=== PATIENT | female | born 1940 | race Caucasian/White ===

== ENCOUNTER 2024-07-18 18:06 | Inpatient (IN) | payer MEDICARE, SELFPAY ==
[2024-07-18] VITALS (19 sets, daily range): BP systolic 93–132; BP diastolic 51–91
--- NOTE | 2024-07-18 10:49 | ED.GENMED ---
History of Present Illness
<Lindsey Bennett BATH STEWARD/STEWARDESS - Last Filed: 07/18/24 17:04>
General
Chief Complaint: Abdominal Symptoms
Source: patient
Exam Limitations: none
Time Seen by Provider: 07/18/24 10:48
Nursing documentation reviewed up to this point in time: agreed with
History of Present Illness
History of Present Illness:
84-year-old female with history of seizures,'s CVA, PUD, diverticulitis, partial thyroidectomy, left mastectomy, hernia repairs, presents for abdominal pain, nausea, vomiting since yesterday. Can hold nothing down. States pain is 910.
Past History
<Lindsey Bennett, BATH STEWARD/STEWARDESS - Last Filed: 07/18/24 17:04>
Past History
ED Past Medical History: Asthma, COPD, Other ('Stomach ulcer a long time ago.'), Other (Osteopenia, severe scoliosis) and Other (Diverticulitis)
ED Past Surgical History: Gynecological (DNC) and Other (Mastectomy, partial thyroidectomy, melanoma removals)
Social History
Tobacco: Non-smoker
Alcohol: None
Personal:
Living: with family (daughter and grandchildren)
Review of Systems
<Lindsey Bennett, BATH STEWARD/STEWARDESS - Last Filed: 07/18/24 17:04>
Review of Systems
Allergies reviewed?: Yes
All Other Systems: ROS reviewed and negative except as documented in HPI and ROS
Constitutional: Denies fever
Respiratory: Reports other (Chronic short of breath with COPD, nothing new)
Cardiac: Denies chest pain
ABD/GI: Reports abdominal pain, nausea, constipated and anorexia; Denies vomiting, bloody stools or black stools
: Denies dysuria, frequency or difficulty voiding
Musculoskeletal: Reports other (Significantly limited ROM due to scoliosis); Denies edema
Skin: Reports no symptoms
Neurological: Reports no symptoms
Phy Exam
<Lindsey V. Day, BATH STEWARD/STEWARDESS - Last Filed: 07/18/24 17:04>
Physical Exam
Physical Exam:
GENERAL: No acute distress. A&Ox3.
CONSTITUTIONAL: Afebrile.
EYES: clear, conjunctivae normal
ENMT: moist mucus membranes
RESPIRATORY: Regular respirations, nonlabored, lungs clear.
CARDIOVASCULAR: Regular rate and rhythm, no murmurs, no rubs.
GI: Soft, rotund, generally tender, high-pitched bowel sounds.
Rectal: No stool in rectal vault.
MUSCULOSKELETAL: Severe scoliosis with significantly limited mobility . No edema. Well perfused.
SKIN: Warm, dry, pink
PSYCH: Normal mood and affect. Well kept, interactive and appropriate
NEUROLOGIC: Awake, alert and oriented. No focal neurological deficits
Course
<Lindsey Bennett, BATH STEWARD/STEWARDESS - Last Filed: 07/18/24 17:04>
Orders/Labs/Results
Orders:
Orders
07/18/24 11:03
Ondansetron Injectable [Zofran] 4 mg IV NOW STA
07/18/24 11:04
0.9% Sodium Chloride 1000 ml [Nss] 1,000 ml IV BOLUS
Iohexol [Omnipaque] See Protocol PO NOW STA
07/18/24 11:05
CT Abd/pel W Iv And Oral Contr Urgent
Comment:
Reason For Exam: pain, n/v, hx diverticulitis
07/18/24 11:13
Morphine Sulfate 4 mg IV NOW STA
07/18/24 11:21
Complete Blood Count/With Diff Urgent
Comprehensive Metabolic Panel Urgent
Lipase Urgent
07/18/24 15:11
CT Head W/o Iv Contrast Stat
Comment:
Reason For Exam: sudden unresponsiveness.
07/18/24 15:43
Lactic Acid Urgent
07/18/24 15:47
Naloxone [Narcan] 0.4 mg IV NOW STA
Naloxone [Narcan] 2 mg .ROUTE .STK-MED ONE
07/18/24 15:48
Naloxone [Narcan] 0.4 mg .ROUTE .STK-MED ONE
07/18/24 15:49
Chest X-ray Portable [CR Chest Portable - 1 View] Stat
Comment:
Reason For Exam: unresponsive
Reason Study Needs to be Portable: Patient Unstable
07/18/24 16:16
GASTROINTESTINAL CONSULT Routine
Consulting Provider: Latesha Bender
Was physician already notified: Yes
Volcanology Professor Consult Routine
Consulting Provider: Nannette Kwon
Was physician already notified: Yes
SURGICAL CONSULT Routine
Consulting Provider: Tony Seth
Was physician already notified: Yes
07/18/24 16:26
Gastrointestinal Tubes As Directed
Type: Strum sump
To suction?: Yes
Type of suction: Low intermittent
To straight drainage/gravity?: Yes
Directions to clamp NG tube: for activity, <30min
Irrigate tube?: Yes
Irrigant: Tap Water
Frequency: Q4H
Amount in mls: 30
Irrigation Directions: Irrigate Q4H and PRN
Comment: 16fr [place] sump
07/18/24 16:46
Admit/Transfer Patient As Directed
Co-Sign Provider:
Level of Care: Inpatient admission
Assign to:: ICU
Physician / Group: Kieran/hospitalist
Diagnosis: internal hernia
Reason for Hospitalization: internal hernia
Expected length of stay greater than two midnights?: Yes
ELOS- Estimated Length of Stay in days: 3
I certify the patient meets the requirements for IP care: Yes
Code Status As Directed
Resuscitation Status: Do not resuscitate
Reached after discussion with pt or family/Healthcare POA: Yes
PRN Pain Medication Management As Directed
May give lesser potent ordered pain med per pt: Yes
preference::
Protocol:: Medication orders for pain may be administered in a
manner that supports deferring to patient preference
when the pt is:
- Requesting an ordered lesser potent pain medication.
Least to most potent pain medications are defined
as: acetaminophen < NSAID < tramadol < opioids
(morphine, oxycodone, hydromorphone).
- Requesting a lesser dose of the same medication IF
ORDERED.
- Requesting a less intrusive route of administration
if both routes are prescribed by the provider (PO <
IV).
07/18/24 16:47
DNR Bracelet Application ONCE
07/18/24 16:53
Type+Screen Stat
07/18/24 16:54
INR [Prothrombin Time] Stat
PTT Stat
Abnormal Lab Results
07/18/24 07/18/24
11:21 15:27
MCH 31.5 H pg
(27.0-31.0)
MCHC 32.3 L g/dL
(33.0-37.0)
Absolute Neuts (auto) 8.5 H 10^3/uL
(1.4-6.5)
Absolute Lymphs (auto) 0.2 L 10^3/uL
(1.2-3.4)
Neutrophils % 90.3 H %
(42.2-75.2)
Lymphocytes % 2.5 L %
(20.5-51.1)
Chloride 97 L mmol/L
(98-107)
Carbon Dioxide 31 H mmol/L
(22-30)
BUN 37 H mg/dl
(7-17)
Creatinine 1.3 H mg/dL
(0.6-1.0)
Glucose 148 H mg/dl
(70-99)
POC Glucose 150 H mg/dl
(70-99)
07/18/24 11:21
07/18/24 11:21
Vital Signs
Initial and Last Documented VS:
Initial Vital Signs
Temp Pulse Resp BP Pulse Ox
97.5 F 107 18 128/82 80
07/18/24 10:06 07/18/24 10:06 07/18/24 10:06 07/18/24 10:06 07/18/24 10:06
Last Documented Vital Signs
Temp Pulse Resp BP Pulse Ox
97.5 F 95 18 107/67 96
07/18/24 10:06 07/18/24 17:00 07/18/24 11:50 07/18/24 17:00 07/18/24 17:03
<Jeremy Arellano MD - Last Filed: 07/18/24 16:31>
Orders/Labs/Results
Orders:
Orders
07/18/24 11:03
Ondansetron Injectable [Zofran] 4 mg IV NOW STA
07/18/24 11:04
0.9% Sodium Chloride 1000 ml [Nss] 1,000 ml IV BOLUS
Iohexol [Omnipaque] See Protocol PO NOW STA
07/18/24 11:05
CT Abd/pel W Iv And Oral Contr Urgent
Comment:
Reason For Exam: pain, n/v, hx diverticulitis
07/18/24 11:13
Morphine Sulfate 4 mg IV NOW STA
07/18/24 11:21
Complete Blood Count/With Diff Urgent
Comprehensive Metabolic Panel Urgent
Lipase Urgent
07/18/24 15:11
CT Head W/o Iv Contrast Stat
Comment:
Reason For Exam: sudden unresponsiveness.
07/18/24 15:43
Lactic Acid Urgent
07/18/24 15:47
Naloxone [Narcan] 0.4 mg IV NOW STA
Naloxone [Narcan] 2 mg .ROUTE .STK-MED ONE
07/18/24 15:48
Naloxone [Narcan] 0.4 mg .ROUTE .STK-MED ONE
07/18/24 15:49
Chest X-ray Portable [CR Chest Portable - 1 View] Stat
Comment:
Reason For Exam: unresponsive
Reason Study Needs to be Portable: Patient Unstable
07/18/24 16:16
GASTROINTESTINAL CONSULT Routine
Consulting Provider: Latesha Bender
Was physician already notified: Yes
Volcanology Professor Consult Routine
Consulting Provider: Nannette Kwon
Was physician already notified: Yes
SURGICAL CONSULT Routine
Consulting Provider: Tony Seth
Was physician already notified: Yes
07/18/24 16:26
Gastrointestinal Tubes As Directed
Type: Strum sump
To suction?: Yes
Type of suction: Low intermittent
To straight drainage/gravity?: Yes
Directions to clamp NG tube: for activity, <30min
Irrigate tube?: Yes
Irrigant: Tap Water
Frequency: Q4H
Amount in mls: 30
Irrigation Directions: Irrigate Q4H and PRN
Comment: 16fr [place] sump
07/18/24 16:46
Admit/Transfer Patient As Directed
Co-Sign Provider:
Level of Care: Inpatient admission
Assign to:: ICU
Physician / Group: Kieran/hospitalist
Diagnosis: internal hernia
Reason for Hospitalization: internal hernia
Expected length of stay greater than two midnights?: Yes
ELOS- Estimated Length of Stay in days: 3
I certify the patient meets the requirements for IP care: Yes
Code Status As Directed
Resuscitation Status: Do not resuscitate
Reached after discussion with pt or family/Healthcare POA: Yes
PRN Pain Medication Management As Directed
May give lesser potent ordered pain med per pt: Yes
preference::
Protocol:: Medication orders for pain may be administered in a
manner that supports deferring to patient preference
when the pt is:
- Requesting an ordered lesser potent pain medication.
Least to most potent pain medications are defined
as: acetaminophen < NSAID < tramadol < opioids
(morphine, oxycodone, hydromorphone).
- Requesting a lesser dose of the same medication IF
ORDERED.
- Requesting a less intrusive route of administration
if both routes are prescribed by the provider (PO <
IV).
07/18/24 16:47
DNR Bracelet Application ONCE
07/18/24 16:53
Type+Screen Stat
07/18/24 16:54
INR [Prothrombin Time] Stat
PTT Stat
Abnormal Lab Results
07/18/24 07/18/24
11:21 15:27
MCH 31.5 H pg
(27.0-31.0)
MCHC 32.3 L g/dL
(33.0-37.0)
Absolute Neuts (auto) 8.5 H 10^3/uL
(1.4-6.5)
Absolute Lymphs (auto) 0.2 L 10^3/uL
(1.2-3.4)
Neutrophils % 90.3 H %
(42.2-75.2)
Lymphocytes % 2.5 L %
(20.5-51.1)
Chloride 97 L mmol/L
(98-107)
Carbon Dioxide 31 H mmol/L
(22-30)
BUN 37 H mg/dl
(7-17)
Creatinine 1.3 H mg/dL
(0.6-1.0)
Glucose 148 H mg/dl
(70-99)
POC Glucose 150 H mg/dl
(70-99)
07/18/24 11:21
07/18/24 11:21
Vital Signs
Initial and Last Documented VS:
Initial Vital Signs
Temp Pulse Resp BP Pulse Ox
97.5 F 107 18 128/82 80
07/18/24 10:06 07/18/24 10:06 07/18/24 10:06 07/18/24 10:06 07/18/24 10:06
Last Documented Vital Signs
Temp Pulse Resp BP Pulse Ox
97.5 F 95 18 107/67 96
07/18/24 10:06 07/18/24 17:00 07/18/24 11:50 07/18/24 17:00 07/18/24 17:03
<Lindsey Bennett BATH STEWARD/STEWARDESS - Last Filed: 07/18/24 17:04>
MDM/Problems Addressed
Differential Diagnosis Includes:
Diverticulitis, bowel obstruction
MDM/Problems Addressed:
84-year-old female with history of seizures,'s CVA, PUD, diverticulitis, partial thyroidectomy, left mastectomy, hernia repairs, presents for abdominal pain, nausea, vomiting since yesterday. Can hold nothing down. States pain is 9/10.
Afebrile, nauseous, appears moderately uncomfortable
Daughter and pt say she cannot tolerate Dilaudid but has had Morphine in the past with no adverse effect.
CBC unremarkable
CMP: Showing mild renal insufficiency, IV fluids are infusing. Otherwise unremarkable
3:10 p.m.
RN approached me to say pt has had a change in mental state, is unresponsive.
Daughter at bedside states she's been somnolent and attributed it to the Morphine.
Pt very weakly opens eyes to loud calling of name, not focusing on speaker, not following commands.
VSS. Pulse ox 97% on 4 L NC. pt using accessory muscles to breath, she was doing that on arrival and she and daughter state that is not unusual w her COPD.
Pt to CT scan: Radiology report read: IMPRESSION:
No acute intracranial abnormality noted considering the enhanced technique.
Moderate periventricular small vessel ischemic disease.
Moderate acute left sphenoid sinusitis.
3:40 p.m.
Pulse ox dropped to 78% placed on non rebreather and up to 96%
Dr. Arellano at bedside. Discussed intubation and daughter ok with this
Narcan 0.2 mg IV given
Portable CXR :
3:50 p.m.
More responsive after Narcan 0.4 mg IV
No need to intubate.
Pulse ox 99%, non rebreather changed to NC O2.
Hospitalist and General Surgeon notified of admission
Chronic conditions affecting care: COPD and Previous abdomnial surgery
<Lindsey Bennett BATH STEWARD/STEWARDESS - Last Filed: 07/18/24 17:04>
*Critical Care Note
Total Time (30-74mins, 75-104mins- exclusive of procedures): Not Applicable
ED Attending Note
<Lindsey Bennett NP - Last Filed: 07/18/24 17:04>
-
Portions of this chart may have been created with voice recognition software.� Occasional wrong word or��sound alike� substitutions may have occurred due to the inherent limitations of voice recognition software.
<Jeremy Arellano MD - Last Filed: 07/18/24 16:31>
ED Attending Note
Patient seen and examined by attending physician: Yes
I performed the substantive portion of visit, reviewed & personally made and approve the management plan that is documented in note by myself or JOSH.: Yes
ED Attending Note:
I have seen and evaluated the patient with a [id number] encounter. I have spoken to the [BATH STEWARD/STEWARDESS] and involved in the medical history, the physical exam, medical decision making.
Evaluation and management service: agree unless noted differently below.
Results interpretation: agree unless noted differently below.
84-year-old woman history of diverticulitis presented to the emergency department with abdominal pain nausea vomiting since yesterday. On arrival patient with diffuse abdominal pain but was awake and alert. 4 mg of morphine was given and patient
was taken to CT scan. Shortly after patient slowly had decrease in mentation and during my evaluation patient was unresponsive. She did become hypoxic as well requiring nasal cannula. 0.4 mg IV Narcan was given with good response and patient is
now awake and alert following intermittent commands. She did have both CT scan of her head and abdomen. CT scan of the head unremarkable. CT scan of the abdomen did show possible internal hernia, mesenteric edema and significant gastric
distention with left hemidiaphragm elevated. This could be causing the hypoxia as well and will likely need NGT. Will discuss with general surgery and admit patient to the hospitalist.
Discharge Plan
Departure
Patient Disposition: Admit
Date of Disposition: 07/18/24
Time of Disposition: 16:04
Presentation/result/management discussed w/ accepting MD/DO: Hospitalist
Condition: Serious
Discharge Problem:
Abdominal pain, Change in mental state
Prescriptions:
No Action
alprazolam [Xanax] 1 MG tablet
1 mg PO HS
clopidogrel [Plavix] 75 MG tablet
75 mg PO DAILY@1999
pantoprazole 40 MG tablet,delayed release (DR/EC)
40 mg PO DAILY
tiotropium bromide [Spiriva with HandiHaler] 18 MCG capsule, w/inhalation device
18 mcg inhalation R DAILY
solifenacin [Vesicare] 10 MG tablet
10 mg PO DAILY
montelukast 10 MG tablet
10 mg PO HSPRN PRN (Reason: ALLERGIES)
ascorbic acid (vitamin C) [Vitamin C] 500 MG tablet
1,000 mg PO DAILY
rosuvastatin 20 MG tablet
20 mg PO DAILY
glucosamine-chondroitin 1 EACH tablet
1 tab PO DAILY
docosahexaenoic acid-epa 1 CAP capsule
2 cap PO DAILY
multivitamin with folic acid [Tab-A-Apryl] 1 TABLET tablet
1 tab PO DAILY
azithromycin 250 mg Tablet
250 mg PO DAILY
levothyroxine [Synthroid] 125 mcg Tablet
125 mcg PO DAILY
duloxetine 60 mg Capsule,Delayed Release(Dr/Ec)
60 mg PO DAILY
umeclidinium-vilanterol [Anoro Ellipta] 62.5-25 mcg/actuation Blister With Device
1 inh INHALATION R DAILY
levetiracetam [Keppra] 500 mg Tablet
500 mg PO BID
Referrals:
Darrell Freeman MD [Family Provider, Family Practice]
Interventions
Interventions:
*Risk Screen - Suicide Last Done: 07/18/24 11:22
*General Assessment Last Done: 07/18/24 11:22
*Neglect/Abuse Screening Last Done: 07/18/24 11:22
*ED- Fall Risk Assessment Last Done: 07/18/24 11:22
*ED COVID-19 Vaccine History Last Done: 07/18/24 11:22
EU-[facility]pr[facility]-Ef[facility] Assessment Last Done: 07/18/24 11:31
Discharge Date and Time
Print Language: PERSIAN
[2024-07-18] MEDS: OMNIPAQUE 50 ML PO (11:21)
[2024-07-18] MEDS: ZOFRAN 4 MG IV (11:21)
[2024-07-18] MEDS: NSS 1000 IV ×2 (11:22→20:43)
[2024-07-18] MEDS: MORPHINE SULFATE 4 MG IV (11:26)
[2024-07-18 11:37] LABS: % Basophils 0.1 % (0-2); % Immature Granulocytes 0.3 % (0-0.5); % Lymphocytes 2.5 % (20.5-51.1); % Monocytes 6.8 % (1.7-9.3); % Neutrophils 90.3 % (42.2-75.2); Absolute Lymphocytes 0.2 10^3/uL (1.2-3.4); Absolute Monocytes 0.6 10^3/uL (0.1-0.6); Absolute Neutrophils 8.5 10^3/uL (1.4-6.5); Hematocrit 45.5 % (37.0-47.0); Hemoglobin 14.7 g/dL (12.0-16.0); Mean Corp Hgb Conc. 32.3 g/dL (33.0-37.0); Mean Corpuscular Hgb 31.5 pg (27.0-31.0); Mean Corpuscular Volume 97.4 fL (81.0-99.0); Nucleated Red Blood Cells % 0 %; Platelet Count 198 10^3/uL (130-400); Red Blood Cell Count 4.67 10^6/uL (4.20-5.40); Red Cell Dist. Width 12.8 % (11.5-14.5); White Blood Cell Count 9.4 10^3/uL (4.8-10.8)
[2024-07-18 11:53] LABS: ALT (SGPT) 22 U/L (0-35); AST (SGOT) 27 U/L (14-36); Alkaline Phosphatase 89 U/L (38-126); Blood Urea Nitrogen 37 mg/dl (7-17); Calcium 9.7 mg/dl (8.4-10.2); Carbon Dioxide 31 mmol/L (22-30); Chloride 97 mmol/L (98-107); Glucose 148 mg/dl (70-99); Lipase 32 U/L (23-300); Potassium 4.7 mmol/L (3.5-5.1); Sodium 141 mmol/L (135-145); Total Bilirubin 0.9 mg/dl (0.2-1.3); Total Protein 7.2 g/dl (6.3-8.2); eGFR 40.55
[2024-07-18 15:29] LABS: Glucose - Point of Care 150 mg/dl (70-99)
[2024-07-18] MEDS: NARCAN 0.4 MG IV (15:50)
--- NOTE | 2024-07-18 16:14 | HPS.HSE ---
Family Physician
-
Family Physician: Darrell Freeman
Chief Complaint
-
Abd pain
N/V
History of Present Illness
HPI: 84 yo F with PMH COPD (not on home O2, History of thyroid cancer, Seizure disorder, Hyperlipidemia, TIA; p/w abd pain, N/V.
She received morphine 4 mg in the ED, and was found to be unresponsive, with improved MS after Narcan.
Admit to ICU.
Medical History
Past Medical History
Past Medical History: Reports Other
Additional Past Medical History:
COPD (not on home O2),
History of thyroid cancer s/p thyroidectomy
Seizure disorder,
Hyperlipidemia,
TIA
breast cancer s/p mastectomy
Past Surgical History: Reports Other (thyroidectomy, mastectomy, leg vein surgery )
Social History
Tobacco: Non-smoker
Alcohol: None
Living: With Family (daughter )
Family History
Family History: Not pertinent
Allergies / Home Medications
Allergies reflects when Allergies were last updated in [employer].
Home Medications with original date entered in [employer]
Allergy/Medication List:
Medications on admission are unable to be verified or confirmed at this time.
Review of Systems
-
Abdomen/GI: Reports See HPI, Abdominal Pain, Nausea and Vomiting
Physical Exam
Vital Signs
Vital Signs
Temp Pulse Resp BP Pulse Ox
36.4 C 96 18 112/70 97
07/18/24 10:06 07/18/24 11:50 07/18/24 11:50 07/18/24 15:00 07/18/24 15:00
Physical Exam
General: Well Developed, Well Nourished and Respiratory Distress (mild)
HEENT: NormoCephalic, Moist mucous membranes, Atraumatic and Oxygen (4L NC)
Respiratory: Clear and Non Labored Respirations; No Accessory Resp Muscle Use
Cardiac: S1/S2 and Regular Rhythm; No Murmur or Rub
GI: Non Distended; No Normal Bowel Sounds (no bowel sound)
Rectal: Deferred by Provider
Musculoskeletal: No Clubbing, No Cyanosis and No Edema
Skin: No Rash
Neuro: Awake
Psych: Calm
Laboratory Results
-
07/18/24 11:21
07/18/24 11:21
Laboratory Results
Total Bilirubin 0.9 mg/dl (0.2-1.3) 07/18/24 11:21
AST 27 U/L (14-36) 07/18/24 11:21
ALT 22 U/L (0-35) 07/18/24 11:21
Alkaline Phosphatase 89 U/L (38-126) 07/18/24 11:21
Lipase 32 U/L (23-300) 07/18/24 11:21
Data Reviewed
-
CT Scan: Report Reviewed by me and Discussed with Family
Lab Data: Labs Reviewed by me
Impression/Plan
-
HPI: 84 yo F with PMH COPD (not on home O2), History of thyroid cancer s/p thyroidectomy, Seizure disorder, Hyperlipidemia, TIA; p/w abd pain, N/V.
She received morphine 4 mg in the ED, and was found to be unresponsive, with improved MS after Narcan.
Admit to ICU.
CT AP in ED noted:
New findings suggesting a possible internal hernia.
Edematous mesentery. Mild free fluid in the abdomen and pelvis likely reactive.
Distended stomach. New.
Severe diverticulosis. No diverticulitis.
Severe elevation of the left hemidiaphragm. New.
A/P:
# Abd pain due to internal hernia with twisting of the mesenteric vessels and stretching in the mid abdomen noted in CT
CT AP as above
judicious use of opiate with unresponsiveness in ED, daughter OK with low dose morphine 0.5 mg PRN
NPO with gentle IVF NSS
GS CS
GI CS
Admit to ICU with cloud infrastructure architect CS
# Acute toxic encephalopathy and acute hypoxic resp insufficiency likely due to opiate overdose
MS improved with Narcan, cont to monitor MS, baseline MS awake and conversant per daughter
placed on 4L NC, pt not on home O2, wean O2 as tolerated
Other medical problems:
# COPD not on home O2
# History of thyroid cancer s/p thyroidectomy
# Seizure disorder
# Hyperlipidemia
# TIA
# distant h/o breast cancer s/p mastectomy
DVT ppx: HSQ
Code: DNR DNI, confirmed with daughter in person
CC Mx for potentially life threatening internal hernia and opiate overdose
CC time 40 min
awaiting med recc
--- NOTE | 2024-07-18 16:27 | CON.GS ---
Addendum entered and electronically signed by Tony Seth MD 07/18/24 17:47:
I saw and examined the patient independently.
The Customs And Border Protection Inspector's note was reviewed and I agree with the note, assessment and plan except where noted below.
Comment: This is an 84-year-old female with medical history below, on Plavix who presents with abdominal pain found to have a swirl in the mesentery, on my review this is likely volvulized transverse colon. There does not appear to be immediate
evidence of ischemic bowel or upstream dilation. The small bowel appears normal. Her white count is normal. Her exam is somewhat unreliable now as she is still recovering from the administration of pain medication but she is very distended on
exam.
N.p.o., IV fluids
Please insert an NG tube in place to low intermittent wall suction. Please obtain plain film to confirm placement, and a repeat plain film in the morning to assess the distention of her colon.
Will follow with serial abdominal exams. I discussed with the daughter who is at bedside that she will almost certainly need an exploration at some point this admission.
Patient's family agreeable to plan of care above.
General surgery will follow, will discuss with colorectal surgery as well surgical options.
Original Note:
Consultation
-
Date/Time Consultation Requested: 07/18/24 1609
Date/Time Consultation Performed: 07/18/24 1615
Requesting Provider: Day
Performing Provider: Sofia Seth
Reason for Consultation: n/v/abd pain
Medical History
-
Chief Complaint: ABD pain
History of Present Illness:
Ms Terry is an 84 yo female with a h/o D&C, Seizures, TIA, COPD, and ?hernia surgery (daughter unsure) who presented with abdominal pain which began early yesterday morning with nausea and vomiting and has persisted. She is currently lethargic
after receiving morphine and subsequent narcan and is unable to provide history. She does follow simple commands and awakens to light stimulation. Her daughter is at bedside and providing history. Her daughter also notes, she was only able to pass
some small cameron of BM since yesterday but is not sure if her mother has been passing flatus. Her pain and discomfort increased today, causing them to present through the ED for evaluation. On exam, the abdomen is quite distended with generalized
tenderness.
Past Medical History
Past Medical History: Cancer (melanoma, thyroid, breast ), COPD, CVA (TIA), HTN, Hypercholesterolemia and Seizures
Past Surgical History: Gynecological (d&C with hysteroscopy), Hernia Repair (?hernia repair) and Other (Partial thyroidectomy, left mastectomy, sinus surgery, cataracts, vein stripping)
Social History
Tobacco: Non-Smoker
Personal:
Allergies / Home Medications
Allergy/AdvReac Type Severity Reaction Status Date / Time
clindamycin Allergy Unknown Hives Verified 07/18/24 10:06
bacitracin Allergy burning, Verified 07/18/24 10:06
itching
hydromorphone (From Dilaudid) Allergy Shortness Verified 07/18/24 10:06
of Breath,
shaking
polymyxin B Allergy burning, Verified 07/18/24 10:06
itching
�Medication �Instructions �Recorded �Confirmed �Type
alprazolam 1 mg tablet 1 - 3 mg PO PRN PRN anxiety 08/30/12 09/01/12 History
alprazolam 1 mg tablet 2 mg PO HS 08/30/12 09/01/12 History
azelastine 137 mcg (0.1 %) nasal 2 sprays intranasal HS 08/30/12 09/01/12 History
spray (Astepro)
clopidogrel 75 mg tablet (Plavix) 75 mg PO DAILY@199908/30/12 09/01/12 History
pantoprazole 40 mg tablet,delayed 40 mg PO DAILY 08/30/12 09/01/12 History
release
solifenacin 10 mg tablet (Vesicare) 10 mg PO DAILY 08/30/12 09/01/12 History
tiotropium bromide 18 mcg capsule 18 mcg inhalation DAILY 08/30/12 09/01/12 History
with inhalation device (Spiriva
with HandiHaler)
montelukast 10 mg tablet 10 mg PO HS 08/31/12 09/01/12 History
Ciclesonide [Omnaris Nasal [place]] 2 sprays intranasal DAILY 09/01/12 09/01/12 History
ascorbic acid (vitamin C) 500 mg 1,000 mg PO DAILY 09/01/12 09/01/12 History
tablet (Vitamin C)
calcium 500 mg (as 1 tab PO DAILY 09/01/12 09/01/12 History
carbonate)-vitamin D3 5 mcg (200
unit) tablet (Oyster Shell
Calcium-Vitamin D3)
docosahexaenoic acid (dha)-epa 120 2 cap PO DAILY 09/01/12 09/01/12 History
mg-180 mg capsule
fluticasone propionate 230 2 puff inhalation BID 09/01/12 09/01/12 History
mcg-salmeterol 21 mcg/actuation
HFA inhaler (Advair HFA)
glucosamine-chondroitin 750 mg-600 1 tab PO DAILY 09/01/12 09/01/12 History
mg tablet
guaifenesin 600 mg tablet, 1,200 mg PO BID 09/01/12 09/01/12 History
extended release 12 hr (Mucus
Relief ER)
ipratropium 0.5 mg-albuterol 3 mg 3 ml inhalation Q6HPRN PRN SOB 09/01/12 09/01/12 History
(2.5 mg base)/3 mL nebulization
soln
ipratropium 18 mcg-albuterol 103 2 puff inhalation Q6HPRN PRN SOB 09/01/12 09/01/12 History
mcg/actuation aerosol inhaler
(Combivent)
levothyroxine 175 mcg tablet 175 mcg PO DAILY 09/01/12 09/01/12 History
multivitamin with folic acid 400 1 tab PO DAILY 09/01/12 09/01/12 History
mcg tablet (Tab-A-Apryl)
phenytoin sodium extended 100 mg 130 mg PO BID 09/01/12 09/01/12 History
capsule
phenytoin sodium extended 30 mg 30 mg PO Q48H 09/01/12 09/01/12 History
capsule (Dilantin)
rosuvastatin 20 mg tablet 20 mg PO DAILY 09/01/12 09/01/12 History
vitamin B complex (Vitamin B-100 100 mg PO DAILY 09/01/12 09/01/12 History
Complex tablet)
ondansetron 4 mg disintegrating 4 mg PO TIDPRN PRN nausea/vomiting 08/22/16 Rx
tablet #9 tabs
Review of Systems
-
Unable to obtain full review of systems at this time due to: Acuity
History Source: Patient and Family
All other systems: Unreviewed (pt unable to provide ROS)
A 10 point review of systems was completed, and was negative except as per HPI.
Physical Exam
Vital Signs
Temp Pulse Resp BP Pulse Ox
97.5 F 96 18 112/70 97
07/18/24 10:06 07/18/24 11:50 07/18/24 11:50 07/18/24 15:00 07/18/24 15:00
07/17/24 07/18/24 07/19/24
06:59 06:59 06:59
Actual Weight 42 kg
Lab Results
07/18/24 11:21
07/18/24 11:21
WBC 9.4 10^3/uL (4.8-10.8) 07/18/24 11:21
Hgb 14.7 g/dL (12.0-16.0) 07/18/24 11:21
Hct 45.5 % (37.0-47.0) 07/18/24 11:21
Plt Count 198 10^3/uL (130-400) 07/18/24 11:21
Abs Immat Gran (auto) 0.0 10^3/uL (0-0.05) 07/18/24 11:21
Neutrophils % 90.3 % (42.2-75.2) H 07/18/24 11:21
Physical Exam
General: Comfortable
HEENT: Normocephalic
Respiratory: Non Labored Respirations
GI: Soft, Tender (generalized) and Distended (mod to severe)
Skin: Warm and Dry
Neuro: Other (lethargic, currently nonverbal but following simple commands)
Psych: Calm
Data Reviewed
-
CT Scan: Image Personally Visualized and interpreted, Report Reviewed by me, Discussed with Physician, Discussed with Patient and Discussed with Family
Labs: Labs Reviewed by me, Discussed with Physician, Discussed with Patient and Discussed with Family
Old Records: Reviewed
Assessment / Plan
-
84 yo female with a h/o D&C, Seizures, TIA, COPD, and ?hernia surgery (daughter unsure and unable to visualize any abd scars) who presented with abdominal pain which began early yesterday morning with nausea and vomiting and has persisted with
associated distention. Altered mentation after narcotic administration limiting history/exam. CT imaging reviewed with significant gastric distention with swirling of the mesentery with what appears to be twisting of redundant transverse colon (best
seen on coronal image). No leukocytosis. Mild KATHERIN present likely secondary to hypovolemia/dehydration. AFVSS.
Plan:
--Being admitted to the hospitalist service for management
--Would place NGT for decompression and keep strict NPO
--Recommend changing essential PO meds to I V
--Analgesics/antiemetics prn,
Will review imaging with contact lens fitter general and colorectal surgeons, further surgical recommendations to follow
--- NOTE | 2024-07-18 17:02 | CON.GI ---
Addendum entered and electronically signed by Latesha Bender MD 07/18/24 17:45:
I saw and examined the patient.
The TELECOMMUNICATOR SUPERVISOR's note was reviewed and I agree with the note.
Comment: This is a 85-year-old female with past medical history as listed below who presented to the emergency room with acute onset of abdominal pain with nausea vomiting since last night but symptoms worsened today which prompted them to come to
the ER. Patient lives with her daughter who is currently by her bedside. in the ER she received morphine and had respiratory distress with desaturation and altered mental status CT head neg and subsequently received Narcan and her saturation
improved was initially placed on a nonrebreather now on NC. She does have chronic constipation and uses MiraLAX as needed and Metamucil. She had small pebble-like stool yesterday history was obtained from her daughter at the bedside.
Unfortunately her medication list was not available her daughter is going to try to obtain it. CT on admission showed mesenteric swirling with twisting of mesenteric vessels and marked gastric distention and also distended colon with elevated left
hemidiaphragm. Severe diverticulosis also noted. Her last colonoscopy was apparently 6 or 7 years ago at [facility] per daughter revealed diverticulosis.
Assessment and plan acute onset of nausea, vomiting and abdominal pain secondary to bowel obstruction with distended stomach and also noted to have a distended colon with mesenteric swirling and twisted mesenteric vessels most likely has large bowel
obstruction from redundant colon with chronic constipation. No prior history of bowel obstruction but has chronic constipation and usually resolves with MiraLAX and Metamucil per daughter. Discussed with surgery who has already seen the patient
and NG tube to be placed and timing of OR per surgery. Continue PPI, NPO, IVF. GI will be available as needed.
Original Note:
Consultation
-
Date/Time Consultation Requested: 07/18/24 1600
Date/Time Consultation Performed: 07/18/24 1600
Requesting Provider: Dr. Alcaraz
Performing Provider: Dr. Ortega/NOY Villafuerte
Reason for Consultation: abd pain
Medical History
Chief Complaint / HPI
Chief Complaint: N/V/abd pain
History of Present Illness:
84-year-old female with past medical history of breast cancer, thyroid cancer, seizure disorder, hyperlipidemia, TIA, COPD not on oxygen, remote history of peptic ulcer disease, scoliosis, chronic constipation presents to the emergency room with
acute onset of nausea, vomiting and abdominal pain. Asked to evaluate for the same. The patient unfortunately was given pain medication and cannot provide any history. History obtained from daughter who is at bedside. Daughter states that the
patient was feeling fine up until yesterday. She ate spaghetti and shrimp without any difficulty. She states that yesterday morning developed with a vague abdominal discomfort, associated with small amounts of vomitus. She also had persistent
nausea. They gave her Zofran which relieved this somewhat. She was also passing small amount of 'pebble-like stool'. She had continued ongoing abdominal pain which brought him to the emergency room for further evaluation. The patient did receive
4 mg of morphine where she did have a change in mental status. She did have a CT of head that showed no acute intracranial abnormality. She did drop her pulse ox down to 78% and she was placed on a nonrebreather. She was given Narcan with
improvement of mentation. She is still somnolent. She had a CT of the abdomen and pelvis with oral and IV contrast that shows a possible internal hernia. Edematous mesentery. Mild free fluid in the abdomen and pelvis. Distended stomach. Severe
diverticulosis. Severe elevation of the left hemidiaphragm. Surgery was consulted and seen patient at bedside. We are consulted as well for the same. The patient appears comfortable. She has some high-pitched bowel sounds. Abdomen is distended.
Past Medical History
Past Medical History: Other (Breast cancer, thyroid cancer, seizure disorder, hyperlipidemia, TIA, COPD, remote history of peptic ulcer disease, scoliosis, chronic constipation)
Past Surgical History: Other (Possible hernia repair)
Social History
Tobacco: Smoker
Alcohol: None
Drug: None
Living: With Family
Family History
Family History: Adopted
Allergies / Home Medications
Allergy/AdvReac Type Severity Reaction Status Date / Time
clindamycin Allergy Unknown Hives Verified 07/18/24 10:06
bacitracin Allergy burning, Verified 07/18/24 10:06
itching
hydromorphone (From Dilaudid) Allergy Shortness Verified 07/18/24 10:06
of Breath,
shaking
polymyxin B Allergy burning, Verified 07/18/24 10:06
itching
�Medication �Instructions �Recorded
alprazolam 1 mg tablet (Xanax) 1 mg PO HS 08/30/12
clopidogrel 75 mg tablet (Plavix) 75 mg PO DAILY@199908/30/12
pantoprazole 40 mg tablet,delayed 40 mg PO DAILY 08/30/12
release
solifenacin 10 mg tablet (Vesicare) 10 mg PO DAILY 08/30/12
tiotropium bromide 18 mcg capsule 18 mcg inhalation R DAILY 08/30/12
with inhalation device (Spiriva
with HandiHaler)
montelukast 10 mg tablet 10 mg PO HSPRN PRN ALLERGIES 08/31/12
ascorbic acid (vitamin C) 500 mg 1,000 mg PO DAILY 09/01/12
tablet (Vitamin C)
docosahexaenoic acid (dha)-epa 120 2 cap PO DAILY 09/01/12
mg-180 mg capsule
glucosamine-chondroitin 750 mg-600 1 tab PO DAILY 09/01/12
mg tablet
multivitamin with folic acid 400 1 tab PO DAILY 09/01/12
mcg tablet (Tab-A-Apryl)
rosuvastatin 20 mg tablet 20 mg PO DAILY 09/01/12
azithromycin 250 mg tablet 250 mg PO DAILY RETIREMENT 07/18/24
duloxetine 60 mg capsule,delayed 60 mg PO DAILY 07/18/24
release
levetiracetam 500 mg tablet 500 mg PO BID 07/18/24
(Keppra)
levothyroxine 125 mcg tablet 125 mcg PO DAILY 07/18/24
(Synthroid)
umeclidinium 62.5 mcg-vilanterol 1 inh inhalation R DAILY 07/18/24
25 mcg/actuation powdr for
inhalation (Anoro Ellipta)
Review of Systems
-
Unable to obtain full review of systems at this time due to: Other (Patient unable to give review of systems secondary to sedation, is awake)
Vital Signs
Temp Pulse Resp BP Pulse Ox
97.5 F 96 18 112/70 97
07/18/24 10:06 07/18/24 11:50 07/18/24 11:50 07/18/24 15:00 07/18/24 15:00
Physical Exam
Exam
General: No Apparent Distress
HEENT: Anicteric
Respiratory: Clear (Anterior)
Cardiac: Regular Rhythm
GI: Non Tender, Distended and Other (Few higher pitch bowel sound)
Skin: Warm and Dry
Neuro: Awake and Other (Somnolent)
Psych: Calm
Results
WBC 9.4 10^3/uL (4.8-10.8) 07/18/24 11:21
Hgb 14.7 g/dL (12.0-16.0) 07/18/24 11:21
Hct 45.5 % (37.0-47.0) 07/18/24 11:21
MCV 97.4 fL (81.0-99.0) 07/18/24 11:21
Plt Count 198 10^3/uL (130-400) 07/18/24 11:21
Absolute Neuts (auto) 8.5 10^3/uL (1.4-6.5) H 07/18/24 11:21
Sodium 141 mmol/L (135-145) 07/18/24 11:21
Potassium 4.7 mmol/L (3.5-5.1) 07/18/24 11:21
Chloride 97 mmol/L (98-107) L 07/18/24 11:21
Carbon Dioxide 31 mmol/L (22-30) H 07/18/24 11:21
BUN 37 mg/dl (7-17) H 07/18/24 11:21
Creatinine 1.3 mg/dL (0.6-1.0) H 07/18/24 11:21
Calcium 9.7 mg/dl (8.4-10.2) 07/18/24 11:21
Total Bilirubin 0.9 mg/dl (0.2-1.3) 07/18/24 11:21
AST 27 U/L (14-36) 07/18/24 11:21
ALT 22 U/L (0-35) 07/18/24 11:21
Alkaline Phosphatase 89 U/L (38-126) 07/18/24 11:21
Lipase 32 U/L (23-300) 07/18/24 11:21
Diagnostic Image Results:
CT abdomen and pelvis with oral and IV contrast 07/18/2024:
IMPRESSION: New findings suggesting a possible internal hernia. Clinical correlation recommended.
Edematous mesentery. Mild free fluid in the abdomen and pelvis likely reactive.
Distended stomach. New.
Severe diverticulosis. No diverticulitis.
Severe elevation of the left hemidiaphragm. New.
CT head:
No acute intracranial abnormality noted considering the enhanced technique.
Moderate periventricular small vessel ischemic disease.
Moderate acute left sphenoid sinusitis.
Chest x-ray:
IMPRESSION:
Chronic severe left hemidiaphragm elevation, progressed from prior.
Mild right midlung atelectasis and/or pneumonia.
Prior GI Procedures:
EGD: Possibly at [facility]. Unavailable to us per daughter
Colonoscopy: Colonoscopy approximately 7 years ago at [facility]. Per daughter diverticulosis otherwise negative. Records unavailable to us
Assessment / Plan
-
84-year-old female with past medical history of breast cancer, thyroid cancer, seizure disorder, hyperlipidemia, TIA, COPD not on oxygen, remote history of peptic ulcer disease, scoliosis, chronic constipation presents to the emergency room with
acute onset of nausea, vomiting and abdominal pain. Asked to evaluate for the same. Patient with CT imaging of abdomen pelvis with oral and IV contrast showing twisting of the mesenteric vessels and stretching in the mid abdomen. Raising concern
for internal hernia. Edematous mesentery. Mild free fluid in the abdomen and pelvis likely reactive. With distended stomach. Severe elevation of the left hemidiaphragm. Patient has already been seen and evaluated by surgery. NG tube to be
placed.
Plan:
-NPO
-NGT
-As per Surgery for further Management, discussed with Surgery and with daughter at bedside.
-
-
Thank you for consultation and allowing me to participate in the patient's care. Please call the teacher education director GI physician during the after hours with any questions or concerns.
[2024-07-18 17:46] LABS: INR 0.99; PT 13.4 Sec (11.4-14.6)
[2024-07-18 17:50] LABS: Lactic Acid 1.3 mmol/L (0.7-2.0)
[2024-07-18] MEDS: HEPARIN 5000 UNITS SC (21:02)
[2024-07-18] MEDS: OFIRMEV 100 IV (21:12)
[2024-07-19] VITALS (30 sets, daily range): BP systolic 68–130; BP diastolic 41–65; BMI 19.5
--- NOTE | 2024-07-19 00:01 | PTCARENOTE ---
assumed care of pt from ED, drowsy and lethargic, slow speech, AOx3, pupils 2, c/o 710 abd pain refer to MAR, NSR on the monitor c PVCs, + pulses, lungs diminished and coarse, poor effort, SpO2 96% on 4L NC, BSx4 hypoactive, tender to touch, PW in
place pt due to void, LE mottled and cool to touch, bluish purple discoloration B/L toes, wounds per worklist, NS 80ml, IV Tylenol, 20G RAC, 20G RFA, call finch within reach, daughter updated before leaving, code status updated to limited DNR,
otherwise refer to documentation.
[2024-07-19 03:13] LABS: % Basophils 0.1 % (0-2); % Immature Granulocytes 0.6 % (0-0.5); % Lymphocytes 4.5 % (20.5-51.1); % Monocytes 9.6 % (1.7-9.3); % Neutrophils 85.2 % (42.2-75.2); Absolute Immature Granulocytes 0.1 10^3/uL (0-0.05); Absolute Lymphocytes 0.6 10^3/uL (1.2-3.4); Absolute Monocytes 1.2 10^3/uL (0.1-0.6); Absolute Neutrophils 10.9 10^3/uL (1.4-6.5); Hematocrit 43.4 % (37.0-47.0); Hemoglobin 13.6 g/dL (12.0-16.0); Mean Corp Hgb Conc. 31.3 g/dL (33.0-37.0); Mean Corpuscular Hgb 31.5 pg (27.0-31.0); Mean Corpuscular Volume 100.5 fL (81.0-99.0); Nucleated Red Blood Cells % 0 %; Platelet Count 173 10^3/uL (130-400); Red Blood Cell Count 4.32 10^6/uL (4.20-5.40); Red Cell Dist. Width 12.7 % (11.5-14.5); White Blood Cell Count 12.8 10^3/uL (4.8-10.8)
[2024-07-19] MEDS: DESENEX/MITRAZOL/ZEASORB 1 APPLIC TOPICAL ×2 (03:30→20:16)
[2024-07-19 03:52] LABS: ALT (SGPT) 19 U/L (0-35); AST (SGOT) 25 U/L (14-36); Albumin 4.2 g/dl (3.5-5.0); Alkaline Phosphatase 81 U/L (38-126); Blood Urea Nitrogen 38 mg/dl (7-17); Calcium 8.7 mg/dl (8.4-10.2); Carbon Dioxide 30 mmol/L (22-30); Estimated Creatinine Clearance 28 ml/min; Glucose 123 mg/dl (70-99); Magnesium 2.1 mg/dl (1.6-2.3); Potassium 4.7 mmol/L (3.5-5.1); Sodium 144 mmol/L (135-145); Total Bilirubin 0.7 mg/dl (0.2-1.3); eGFR 55.55
[2024-07-19 04:19] LABS: Chloride 103 mmol/L (98-107); Total Protein 6.3 g/dl (6.3-8.2)
--- NOTE | 2024-07-19 04:40 | PTCARENOTE ---
systems reviewed, bladder scanned 472, straight cath per order for 600, labs sent, mouth care, otherwise refer to worklist.
[2024-07-19] MEDS: OFIRMEV 100 IV (06:31)
--- NOTE | 2024-07-19 07:29 | W.PN.HOSP.TC ---
Addendum entered and electronically signed by Juani Salvador MD 07/19/24 17:07:
I saw and evaluated the patient independently. I reviewed the resident�s note and agree with findings and plan as documented by Dr. Michele.
GENERAL: chronically ill appearing female with O2 NC in place, severe scoliosis in no apparent distress
HEENT: NC/AT--O2 NC--NGT
HEART: regular rate and rhythm, +S1, +S2
LUNGS : clear to auscultation bilaterally
ABDOM: soft, nontender, nondistended, + bowel sounds
EXT: no cyanosis, clubbing, or edema
NEUROLOGIC: grossly intact
went to OR and now intubated
Abdominal pain due to internal hernia with cecal volvulus and twisting of internal vessels--apprec surgery--went to OR--Cecum within the LEFT chest causing obstruction and volvulus of the transverse colon, No ischemia or perforation, Extended RIGHT
hemicolectomy with primary stapled azmc-ld-mhdt anastomosis with KEESHA 100 blue load stapler, Anatomy confirmed, mesenteric defect closed--post op care, pain control
VDRF--intubated post op--apprec employee wellness/fitness coordinator help
hypotension--post op--does not appear septic by criteria--cont levophed and vasopressin added-- IVF support
Acute toxic metabolic encephalopathy from acute hypoxic respiratory failure (on O2 but does not wear it at home) due to UNINTENTIONAL opiate overdose (4mg IV morphine given by ED)in a pt with COPD--received narcan with improvement--now intubated
postop
Urinary retention- straight cath as needed--loaiza post op
Seizure disorder--cont Keppra IV
HLD--hold oral statin
Hx CVA
H/o breast cancer s/p mastectomy
DVT proph-- subq heparin
Code status--limited -- DNI--intubated post procedure
Original Note:
Today's Communication/Plan
-
- possible surgery
Assessment / Plan
Assessment / Plan
Assessment:
84yo F h COPD, seizures, CVA, PUD, diverticulitis, hx hernia repairs who presented to [facility] ED 07/18 for abdominal pain, N/V since the day before. Received 4mg morphine in ED, found to be unresponsive, improved after narcan. CT abd/pelvis c/w
internal hernia vs possible volvulized transverse colon.
Plan:
Abdominal pain due to internal hernia w twisting of mesenteric vessels on CT
- judicious use of opiates w unresponsiveness in ED
- NPO, IVF
- NG tube w wall suction
- appreciate surgery input
- appreciate GI input
Acute toxic metabolic encephalopathy w acute hypoxic resp insufficency likelly secondary to opiate overdose
COPD
- MS improved w narcan
- monitor MS
- wean O2 as able, not on home O2
Urinary retention
- straight cath as needed
- monitor
Sore throat
- lozenges
Seizure disorder
HLD
Hx CVA
H/o breast cancer s/p mastectomy
Diet: NPO
DVT ppx: subq heparin
Code status: limited -- DNI
Anticipated Discharge: > 48 hours
Subjective/Interval History
-
Date of Service: July 19, 2024
Pt is an 84yo F h seizures, CVA, PUD, diverticulitis, hx hernia repairs who presented to [facility] ED 07/18 for abdominal pain, N/V since the day before. Received 4mg morphine in ED, found to be unresponsive, improved after narcan. CT abd/pelvis c/w
internal hernia vs possible volvulized transverse colon. Today pt has a sore throat. Straight cath this AM for 600mL.
Objective Data
-
Labs:
Laboratory Results
07/19/24
03:07
WBC 12.8 H
Hgb 13.6
Hct 43.4
Plt Count 173
Sodium 144
Potassium 4.7
Chloride 103
Carbon Dioxide 30
BUN 38 H
Creatinine 1.0
Glucose 123 H
Calcium 8.7
Total Bilirubin 0.7
AST 25
ALT 19
Alkaline Phosphatase 81
Vital Signs:
Vital Signs
Temp Pulse Resp BP Pulse Ox
97.5 F 94 34 93/57 99
07/19/24 03:39 07/19/24 06:00 07/19/24 06:00 07/19/24 06:00 07/19/24 04:22
I&O
07/18/24 07/19/24 07/20/24
06:59 06:59 06:59
Output Total 600 / 600
Balance -600 / -600
Review of Systems
-
History Source: Patient
Constitutional: Reports No Symptoms
EENT: Reports Other (sore throat)
Respiratory: Reports No Symptoms
Cardiac: Reports No Symptoms
Abdomen/GI: Reports Abdominal Pain
Neuro: Reports No Symptoms
Physical Exam
-
General: Appears Chronically Ill and Cachectic
HEENT: Normocephalic, Atraumatic, Oxygen (1L O2 via NC) and Other (NG tube)
Respiratory: Crackles and Decreased Breath Sounds
Cardiac: S1/S2, Irregular Rhythm and Tachycardic
Breast: N/A
GI: Soft, Nondistended, Tender and Other (hypoactive BS, hernia)
Musculoskeletal: No Clubbing, No Cyanosis and No Edema
Skin: Warm and Dry
Neuro: Awake and Alert
Psych: Calm and Confused
[2024-07-19] MEDS: HEPARIN 5000 UNITS SC ×2 (07:42→20:14)
--- NOTE | 2024-07-19 07:44 | CON.INTV ---
Consultation
Consultation Request
Date/Time Consultation Requested: 07/18/2024
Date/Time Consultation Performed: 07/19/2024
Requesting Provider: Veronica Alcaraz
Performing Provider: Nannette Kwon
Reason for Consultation: Altered mental status
Medical History
-
Chief Complaint: Abdominal pain
History of Present Illness:
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 Workup in the emergency room was concerning for
internal hernia with suspected transverse colon volvulus and gastric distention. Patient received a dose of morphine 4 mg which was followed by a period of unresponsiveness which improved with Narcan. Patient was subsequently brought to the ICU
for closer monitoring. Insurance Writer consultation was requested for further input. Patient has been evaluated by GI and surgery service. An NG tube was placed and patient has been placed on low intermittent suction.
Past Medical History: Reports Other
Additional Past Medical History:
COPD (not on home O2),
History of thyroid cancer s/p thyroidectomy
Seizure disorder,
Hyperlipidemia,
TIA
breast cancer s/p mastectomy
Past Surgical History: Reports Other (thyroidectomy, mastectomy, leg vein surgery )
Social History
Tobacco: Non-smoker
Alcohol: None
Living: With Family (daughter )
Family History
Family History: Not pertinent
Allergies / Home Medications
Allergies / Home Medications
Allergies
Allergy/AdvReac Type Severity Reaction Status Date / Time
bacitracin Allergy burning, Verified 07/18/24 19:51
itching
clindamycin Allergy Hives Verified 07/18/24 19:51
hydromorphone (From Dilaudid) Allergy Shortness Verified 07/18/24 19:51
of Breath,
shaking
polymyxin B Allergy burning, Verified 07/18/24 19:51
itching
Home Medications
�Medication �Instructions �Recorded �Confirmed �Last Taken �Type
alprazolam 1 mg tablet (Xanax) 1 mg PO HS 08/30/12 07/18/24 Unknown History
clopidogrel 75 mg tablet (Plavix) 75 mg PO DAILY@199908/30/12 07/18/24 08/29/12 20:00 History
pantoprazole 40 mg tablet,delayed 40 mg PO DAILY 08/30/12 07/18/24 08/30/12 08:00 History
release
solifenacin 10 mg tablet (Vesicare) 10 mg PO DAILY 08/30/12 07/18/24 08/30/12 08:00 History
tiotropium bromide 18 mcg capsule 18 mcg inhalation R DAILY 08/30/12 07/18/24 08/30/12 08:00 History
with inhalation device (Spiriva
with HandiHaler)
montelukast 10 mg tablet 10 mg PO HSPRN PRN ALLERGIES 08/31/12 07/18/24 08/29/12 20:00 History
ascorbic acid (vitamin C) 500 mg 1,000 mg PO DAILY 09/01/12 07/18/24 08/29/12 08:00 History
tablet (Vitamin C)
docosahexaenoic acid (dha)-epa 120 2 cap PO DAILY 09/01/12 07/18/24 08/30/12 08:00 History
mg-180 mg capsule
glucosamine-chondroitin 750 mg-600 1 tab PO DAILY 09/01/12 07/18/24 08/30/12 08:00 History
mg tablet
multivitamin with folic acid 400 1 tab PO DAILY 09/01/12 07/18/24 08/30/12 08:00 History
mcg tablet (Tab-A-Apryl)
rosuvastatin 20 mg tablet 20 mg PO DAILY 09/01/12 07/18/24 08/30/12 08:00 History
azithromycin 250 mg tablet 250 mg PO DAILY DIRECT CUSTOMER SERVICE REPRESENTATIVE 07/18/24 07/18/24 Unknown History
duloxetine 60 mg capsule,delayed 60 mg PO DAILY 07/18/24 07/18/24 Unknown History
release
levetiracetam 500 mg tablet 500 mg PO BID 07/18/24 07/18/24 Unknown History
(Keppra)
levothyroxine 125 mcg tablet 125 mcg PO DAILY 07/18/24 07/18/24 Unknown History
(Synthroid)
umeclidinium 62.5 mcg-vilanterol 1 inh inhalation R DAILY 07/18/24 07/18/24 Unknown History
25 mcg/actuation powdr for
inhalation (Anoro Ellipta)
Review of Systems
-
Hematologic/Lymphatic: Other (Reports abdominal still feels bloated, otherwise no dyspnea, chest pain or shortness of breath.)
Vitals / Labs / Diagnostic Testing
Vital Signs
Temp Pulse Resp BP Pulse Ox
97.5 F 94 34 93/57 99
07/19/24 03:39 07/19/24 06:00 07/19/24 06:00 07/19/24 06:00 07/19/24 04:22
Lab Data
07/19/24 03:07
07/19/24 03:07
Laboratory Results
07/18/24
17:28
PT 13.4
INR 0.99
APTT 28.0
Diagnostic Testing:
Physical Exam
-
HEENT: Normocephalic
Cardiovascular: S1/S2
Respiratory: Clear and Non-Labored Respirations
GI: Distended
Neurology: Awake and Alert
Skin: Warm
General: Comfortable
Assessment
-
#1. Abdominal pain with ?Colon volvulus, with gastric distention
- NG tube in place, continue intermittent low suction
- Hemodynamically stable, lactate normal at 1.3
- Continue IV fluids, n.p.o., pain and nausea control
- Surgery service on case, plan for OR today
- Continue IV fluids
#2. Acute encephalopathy, metabolic, related to opiate medications
- Patient responded well to Narcan
- Protecting airway well, cautious use of pain medications
#3. History of seizure disorder
- Since patient is n.p.o., start IV Keppra, reportedly on p.o. Keppra 500 twice daily at home
#4. History of Asthma and restrictive lung disease
- Non-Smoker. Has second hand smoke exposure
- Restriction due to scoliosis and chronic left hemidiaphragm elevation
- Uses Anoro, Qvar and daily Azithromycin at home. Follows up with [facility]
- No wheezing on exam currently
- Supplemental O2 as needed to keep saturations above 89%
- DuoNeb as needed, start scheduled budesonide twice daily
#5. H/O GERD
- IV PPI while NPO
Other medical diagnoses:
- TIA
- h/o Breast and Thyroid cancer
Updated patient's daughter at bedside
Critical Care time 58 mins -- The patient is admitted for acute critical illness for the treatment of vital organ failure and/or prevention of further life-threatening conditions. Total care includes time spent in review of history, physical exam,
medications, hemodynamic/ventilator parameters, laboratory data, imaging and discussion with house staff, pharmacy, respiratory therapy, breast trimmer, and nursing.
Data:
CXR 07/2024: Chronic left hemidiaphragm elevation. Gastric distention. Bilateral atelectasis
CT Head -07/2024: No acute intracranial abnormality noted considering the enhanced technique.
Moderate periventricular small vessel ischemic disease.
Moderate acute left sphenoid sinusitis.
CT Abd/pelvis 07/2024: New findings suggesting a possible internal hernia. Clinical correlation recommended.
Edematous mesentery. Mild free fluid in the abdomen and pelvis likely reactive.
Distended stomach. New.
Severe diverticulosis. No diverticulitis.
Severe elevation of the left hemidiaphragm
ECHO 10/2019: Suboptimal parasternal views likely due to scoliosis and left mastectomy.
Small left ventricular chamber size. Normal left ventricular systolic function.
Left ventricular ejection fraction is 50-55% by visual assessment.
Mild left ventricular hypertrophy.
Stage I diastolic dysfunction suggestive of abnormal relaxation.
Mild mitral regurgitation.
Mild aortic regurgitation.
Mild tricuspid regurgitation.
--- NOTE | 2024-07-19 07:59 | PTCARENOTE ---
Addendum entered by Lexie Melvin RN 07/19/24 10:32:
loaiza placed per order. pre op care provided. daughter at bedside. updated by surgery. telephone report given to SALES REPRESENTATIVE MARINE SUPPLIESROGER Peoples
Original Note:
report received, assessments per work list. patient drowsy, arousable and oriented. conversant. monitor nsr, pvc's. lungs with diminished breath sounds. poor inspiratory effort. abdomen distended, tender to touch, hyperactive bowel sounds. left nare
ngt placement verified, scant drainage. call finch in reach
[2024-07-19] MEDS: PROTONIX IV 40 MG IV (09:15)
[2024-07-19] MEDS: NSS (PRESERVATIVE FREE) 10 ML IV (09:15)
[2024-07-19] MEDS: KEPPRA 500 MG IV ×2 (09:15→20:16)
--- NOTE | 2024-07-19 09:51 | W.PN.GS2 ---
Addendum entered and electronically signed by Ian Kurtz MD 07/25/24 09:45:
Complete bowel obstruction
Original Note:
Today's Communication / Plan
-
-- Exploratory laparotomy, reduction of volvulus/internal hernia, possible bowel resection, possible ostomy
-- Abx: Zosyn for translocation
Assessment / Plan
-
Patient is an 84 yo F p/w bowel obstruction likely related to transverse colonic volvulus
Soft BP, stable, no tachycardia, afebrile
Leukocytosis, normal lytes, improvement in KATHERIN
CT scan and x-ray imaging reviewed. Most likely a large bowel obstruction due to a transverse colonic volvulus likely secondary to redundancy from chronic constipation combined with anatomic variation with paralyzed hemidiaphragm and scoliosis.
Natural history and pathophysiology of colonic volvulus was reviewed. Location is unlikely to be amendable to colonoscopic decompression and exposes increased risks of perforation related to mechanical torquing or insufflation. Continue medical
management risks worsening bowel ischemia and potential sepsis. Recommend surgical management.
Plan for an exploratory laparotomy, reduction of volvulus/internal hernia, possible bowel resection, possible ostomy. The procedure itself, as well as the risks, benefits, and alternatives was discussed. Specifically, we discussed the risks of
bleeding, infection, injury to surrounding structures, wound complications, recurrence, and general anesthetic complications including pulmonary failure. We specifically discussed that she is at increased risk for bleeding related to Plavix use
(last dose 72 hours ago), infectious risks due to potential colonic resection and an unprepped bowel, and respiratory issues given her paralyzed LEFT hemidiaphragm and severely compressed LEFT lung. Typical postprocedural recovery including the
potential need for a lengthy hospital stay and discharged to a rehab facility was discussed. Daughter was updated by phone. All questions answered. Consent signed.
-- Exploratory laparotomy, reduction of volvulus/internal hernia, possible bowel resection, possible ostomy
-- NPO, IVF, NGT decompression
-- Abx: Zosyn for translocation
-- GI: PPI
-- DVT: SQH
-- Continue to hold Plavix
Subjective Data
-
Date of Service: July 19, 2024
Reports continued abdominal discomfort similar to presentation. No nausea or vomiting. No fevers. In talking with daughter she states that her mother has had chronic issues with constipation and diarrhea diagnosed as IBS. She reports no issues
with incontinence. Confirms that pain/symptoms began acutely on Thursday.
Objective Data
-
Intake and Output
07/18/24 07/19/24 07/20/24
06:59 06:59 06:59
Intake Total 160 / 160
Output Total 600 / 600
Balance -600 / -600 160 / 160
Intake:
IV fluids (Total) 160 / 160
Nss 1,000 ml @ 80 mls/hr IV . 160 / 160
[id number] [facility] Rx#:[id number]
Output:
Straight cath output 600 / 600
Vital Signs
Temp Pulse Resp BP Pulse Ox
98.4 F 92 18 93/52 99
07/19/24 08:00 07/19/24 09:00 07/19/24 09:00 07/19/24 09:00 07/19/24 04:22
Lab Results
07/19/24 03:07
07/19/24 03:07
Calcium 8.7 mg/dl (8.4-10.2) 07/19/24 03:07
Magnesium 2.1 mg/dl (1.6-2.3) 07/19/24 03:07
Total Bilirubin 0.7 mg/dl (0.2-1.3) 07/19/24 03:07
AST 25 U/L (14-36) 07/19/24 03:07
ALT 19 U/L (0-35) 07/19/24 03:07
Alkaline Phosphatase 81 U/L (38-126) 07/19/24 03:07
Total Protein 6.3 g/dl (6.3-8.2) 07/19/24 03:07
Albumin 4.2 g/dl (3.5-5.0) 07/19/24 03:07
Physical Exam
-
Gen: NAD
HEENT: NGT with minimal clear output
Abd: soft, mild tenderness, distended, tympany, palpable colonic distention, non-peritoneal (no rebound or guarding)
Patient has a loaiza catheter: No
Patient has a central line: No
[2024-07-19] MEDS: NSS 1000 IV (10:13)
[2024-07-19] MEDS: ZOSYN 50 IV ×3 (10:15→23:52)
--- NOTE | 2024-07-19 11:20 | PTCARENOTE ---
care transfer to OR staff. transport to OR by CONTINUOUS IMPROVEMENT CONSULTANT
--- NOTE | 2024-07-19 11:32 | W.SUR.PREOP ---
Pre-Operative Surgical Note
-
I have examined this patient prior to the performance of the scheduled procedure.
The patient's condition is unchanged from the time of the current History and
Physical and the patient is able to undergo the scheduled procedure.
[2024-07-19] MEDS: OFIRMEV 67.5 MG IV ×2 (12:30→17:47)
--- NOTE | 2024-07-19 13:00 | W.IMMPOSTOP ---
Addendum entered and electronically signed by Ian Kurtz MD 07/26/24 09:21:
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 This is a valid pathologic diagnosis.
Original Note:
Surgical Immed Post Op Note
-
Primary Surgeon: Jerardo
Assisting Surgeon: KUSH Montejo
Pre-op Diagnosis: Large bowel obstruction, colonic volvulus
Post-op Diagnosis: Large bowel obstruction, colonic volvulus
Procedure Performed: Exploratory laparotomy, reduction of colonic volvulus, extended RIGHT breanan-colectomy with primary anastomosis
Anesthesia Type: General
Specimen / Cultures:
1. RIGHT colon
Estimated Blood Loss: 11 cc
Complications: None
Operative Findings:
1. Cecum within the LEFT chest causing obstruction and volvulus of the transverse colon
2. No ischemia or perforation
3. Extended RIGHT hemicolectomy with primary stapled [id number] anastomosis with KEESHA 100 blue load stapler
4. Anatomy confirmed, mesenteric defect closed
[2024-07-19] MEDS: MORPHINE SULFATE 0.5 MG IV (13:53)
[2024-07-19] MEDS: SUBLIMAZE 50 MCG IV ×3 (14:08→16:19)
--- NOTE | 2024-07-19 14:20 | PTCARENOTE ---
patient received direct back from OR@[id number]. patient vented, awake, restless with increased non verbal pain cues. follows commands and moves extremities equally. medicated with morphine per prn order. pain unrelieved. coarse breath sounds, diminished
bilaterally. cxr taken. patient sats 80's with activity. placed on 100% until recovery. RT, remote control assembler at bedside. orders received. patient to stay on vent overnight. feet remain mottled as per prior assessments. feet cool with palpable
pulses.medicated with fentanyl per prn order, daughter at bedside. support given.
--- NOTE | 2024-07-19 14:35 | PTCARENOTE ---
Addendum entered by Lexie Melvin RN 07/19/24 15:23:
fluid bolus, levophed initiated. patient without nonverbal pain cues
Addendum entered by Lexie Melvin RN 07/19/24 14:55:
fentanyl gtt initaited, intesivist updated with blood pressure trend
Original Note:
patient with continued signs pain. see MAR. patient denies anxiety.
[2024-07-19] MEDS: SUBLIMAZE 100 IV ×2 (14:40→23:27)
[2024-07-19] MEDS: LR 500 IV ×3 (15:00→18:46)
[2024-07-19] MEDS: LR 1000 IV ×3 (15:00→23:28)
[2024-07-19] MEDS: LEVOPHED 250 IV ×3 (15:06→23:27)
[2024-07-19 15:58] LABS: Venous Blood Gas B.E. -6.2 mmol/L (-4 to +4); Venous Blood Gas HCO3 20.2 mmol/L (22-27); Venous Blood Gas pCO2 43 mmHg (35-48); Venous Blood Gas pH 7.28 (7.32-7.43); Venous Blood Gas pO2 166 mmHg (30-50)
--- NOTE | 2024-07-19 16:11 | PTCARENOTE ---
patient reassessed. patient awake, denies pain, levophed titration per work list. Aircraft Electrical Systems Specialist in to evaluate patient. vbg sent as RT unable to obtain abg. abdominal dressing dry and intact.
--- NOTE | 2024-07-19 16:44 | OR.RPT ---
Operative Report
Operative Report
Left Radial Arterial catheter placement
Informed consent was obtained from patient's daughter at bedside. Patient in shock on pressor therapy and needs invasive blood pressure monitoring.
Bedside ultrasound was used to confirm patency of left radial artery. Right side was also assessed but was too small for safe cannulation. Earlier attempts for ABG on Right Radial artery had failed. Under sterile condition area was subsequently
cleaned and a drape was placed. Under direct ultrasound visualization,, radial artery was cannulated. Once blood was noted in the chamber guidewire was advanced. Arterial catheter was subsequently advanced over the guidewire, and then guidewire
was removed. Pressure tubing was subsequently attached to the catheter and arterial waveform was noted on the monitor. Subsequently a dressing was placed.
Complications: None
Blood loss: >1 ml
Date of service: 07/19/2024
--- NOTE | 2024-07-19 16:45 | CM ---
Patient seen at bedside with physicians in ICU. Patient states that she lives with her daughter in a 2 story home. Patient PCP is Dr. Freeman and she uses the [facility] on [address] [place]. Patient had an NG tube when visited and
patient went to surgery today. Patient plan was to return to home with family supports. CM will continue to follow for discharge planning needs.
Plan; pending medical treatment and recommendations; SNF vs home with family supports.
--- NOTE | 2024-07-19 16:48 | W.PN.UPDATE ---
Update Note
Progress Note Update
Patient arrived in the ICU post hemicolectomy, intubated.
-Patient immediately examined in the ICU. Blood pressure was around a MAP of 65 but started to trend down. Patient was given a bolus of 500 LR followed by continuous infusion at 100 mL an hour. Patient was started on Levophed. Dose was gradually
increased all the way up to 12. After obtaining consent from family at bedside, a left radial artery arterial catheter was placed.
- In view of rising dose of Levophed, vasopressin was also started
- Patient not stable for extubation, sedation started with fentanyl bolus, infusion as needed as well as Precedex
- Stat ABG, lactate, CBC and CMP
- Continue Zosyn, IV fluids
- Continue current mechanical ventilation, 350/15/50%/5.
[2024-07-19 16:55] LABS: B.E. 2.2 mmol/L; HCO3 28.7 mmol/L (21-28); O2 Saturation % 99.8 % (94-98); PCO2 52 mmHg (32-35); PO2 188 mmHg (83-108); pH 7.35 (7.35-7.45)
[2024-07-19 16:56] LABS: Hematocrit 36.1 % (37.0-47.0); Hemoglobin 11.8 g/dL (12.0-16.0); Mean Corp Hgb Conc. 32.7 g/dL (33.0-37.0); Mean Corpuscular Hgb 32.3 pg (27.0-31.0); Mean Corpuscular Volume 98.9 fL (81.0-99.0); Mean Platelet Volume 10.4 fL (7.4-10.4); Platelet Count 196 10^3/uL (130-400); Red Blood Cell Count 3.65 10^6/uL (4.20-5.40); Red Cell Dist. Width 12.7 % (11.5-14.5); White Blood Cell Count 14.8 10^3/uL (4.8-10.8)
[2024-07-19] MEDS: PITRESSIN 100 IV ×2 (16:56→23:26)
[2024-07-19 17:08] LABS: Lactic Acid 1.1 mmol/L (0.7-2.0)
[2024-07-19 17:16] LABS: ALT (SGPT) 19 U/L (0-35); AST (SGOT) 24 U/L (14-36); Albumin 2.9 g/dl (3.5-5.0); Alkaline Phosphatase 69 U/L (38-126); Blood Urea Nitrogen 37 mg/dl (7-17); Calcium 7.6 mg/dl (8.4-10.2); Carbon Dioxide 24 mmol/L (22-30); Chloride 108 mmol/L (98-107); Estimated Creatinine Clearance 41 ml/min; Glucose 122 mg/dl (70-99); Sodium 140 mmol/L (135-145); Total Bilirubin 0.7 mg/dl (0.2-1.3); Total Protein 4.6 g/dl (6.3-8.2); eGFR > 60.00
--- NOTE | 2024-07-19 17:19 | PTCARENOTE ---
Addendum entered by Lexie Melvin RN 07/19/24 17:31:
patient back in nsr, blood pressure improved, weaning levophed
Original Note:
Levophed titration per work list. geophysical prospecting surveyor inserted arterial line, vasopressin added. additional fluid bolus given. patient with increased ectopy and change in rhythm. ekg done. accelerated junctional noted. geophysical prospecting surveyor in to evaluate patient. no
new orders at this time
--- NOTE | 2024-07-19 18:47 | PTCARENOTE ---
patient in and out of accelarated junctional with resultant hypotension. levophed per work list. brakes inspector diversity specialist updated. orders received. fluid bolus infusing
[2024-07-19] MEDS: FLOVENT 220 MCG INHALER 4 PUFF INH (19:17)
--- NOTE | 2024-07-19 20:10 | PTCARENOTE ---
assumed care, pt lethargic, Ox3, mouths words, follows command, GODWIN, PT c/o 2/10 abd pain, B/L wrist restraints, NS on the monitor c PVCs, trace GA, weak pulses, CHRISTINE stockings and B/L SCDs, ETT 6.5 22 @ lip AC 20/350/5/50 SpO2 >92, diminished and
coarse throughout, minimal secretions, BSx4 hypoactive, midline abd incision two small areas of drainage, distended, firm, tender to touch, NGT L nare 55 LIS brown output, F yellow output, wounds per worklist, 20G RAC, RFA, and R hand, gtts per
worklist, daughter @ bedside and updated, call finch within reach, otherwise refer to documentation
[2024-07-19] MEDS: NSS (PRESERVATIVE FREE) 0.25 ML IV (20:14)
[2024-07-19] MEDS: ATIVAN 0.5 MG IV (20:15)
[2024-07-19] MEDS: FLEXBUMIN 100 IV (20:56)
[2024-07-19 21:20] LABS: B.E. 0.6 mmol/L; HCO3 24.3 mmol/L (21-28); PCO2 35 mmHg (32-35); PO2 143 mmHg (83-108); pH 7.45 (7.35-7.45)
[2024-07-19 21:22] LABS: Hematocrit 33.4 % (37.0-47.0); Hemoglobin 10.9 g/dL (12.0-16.0)
[2024-07-19 21:45] LABS: Blood Urea Nitrogen 34 mg/dl (7-17); Calcium 7.6 mg/dl (8.4-10.2); Carbon Dioxide 24 mmol/L (22-30); Chloride 107 mmol/L (98-107); Estimated Creatinine Clearance 41 ml/min; Glucose 159 mg/dl (70-99); Potassium 3.9 mmol/L (3.5-5.1); Sodium 137 mmol/L (135-145); eGFR > 60.00
[2024-07-19] MEDS: CALCIUM GLUCONATE 100 IV (22:42)
[2024-07-19] MEDS: SOLU-CORTEF 50 MG IV (23:26)
--- NOTE | 2024-07-20 00:40 | PTCARENOTE ---
systems reviewed, pt BP decreased despite increase in Levo, CURATORIAL SPECIALIST notified, labs and gas sent, LR bolus, albumin and calcium per APR, PICC placed per order and confirmed, IVs removed on RE and all bags and lines changed, SpO2 high 80's notified RT, O2
increased to 50%, pt remains drowsy denies pain and nods shes is comfortable, gtts titered per worklist, daughter called and was updated, otherwise refer to documentation.
[2024-07-20 04:07] LABS: B.E. 6.3 mmol/L; HCO3 29.1 mmol/L (21-28); PCO2 34 mmHg (32-35); PO2 175 mmHg (83-108); pH 7.54 (7.35-7.45)
[2024-07-20 04:12] LABS: O2 Therapy 50
[2024-07-20 04:14] LABS: % Basophils 0.1 % (0-2); % Immature Granulocytes 0.2 % (0-0.5); % Lymphocytes 4.6 % (20.5-51.1); % Neutrophils 86.1 % (42.2-75.2); Absolute Lymphocytes 0.4 10^3/uL (1.2-3.4); Absolute Monocytes 0.8 10^3/uL (0.1-0.6); Absolute Neutrophils 7.8 10^3/uL (1.4-6.5); Hematocrit 27.9 % (37.0-47.0); Hemoglobin 9.4 g/dL (12.0-16.0); Mean Corp Hgb Conc. 33.7 g/dL (33.0-37.0); Mean Corpuscular Hgb 31.9 pg (27.0-31.0); Mean Corpuscular Volume 94.6 fL (81.0-99.0); Mean Platelet Volume 10.3 fL (7.4-10.4); Nucleated Red Blood Cells % 0 %; Platelet Count 155 10^3/uL (130-400); Red Blood Cell Count 2.95 10^6/uL (4.20-5.40); Red Cell Dist. Width 12.3 % (11.5-14.5); White Blood Cell Count 9.1 10^3/uL (4.8-10.8)
[2024-07-20 04:23] LABS: Lactic Acid 0.9 mmol/L (0.7-2.0)
--- NOTE | 2024-07-20 04:48 | PTCARENOTE ---
systems reviewed, labs sent, CHG bath, pt c/o of throat pain but comfortable after adjusting tube and mouth care, gtts titrated per worklist, otherwise refer to documentation
[2024-07-20 04:51] LABS: ALT (SGPT) 16 U/L (0-35); AST (SGOT) 21 U/L (14-36); Alkaline Phosphatase 46 U/L (38-126); Blood Urea Nitrogen 28 mg/dl (7-17); Calcium 8.4 mg/dl (8.4-10.2); Carbon Dioxide 27 mmol/L (22-30); Chloride 105 mmol/L (98-107); Estimated Creatinine Clearance 48 ml/min; Glucose 145 mg/dl (70-99); Magnesium 1.8 mg/dl (1.6-2.3); Phosphorus 1.6 mg/dl (2.5-4.5); Potassium 3.7 mmol/L (3.5-5.1); Sodium 138 mmol/L (135-145); Total Bilirubin 0.7 mg/dl (0.2-1.3); Total Protein 4.5 g/dl (6.3-8.2); eGFR > 60.00
--- NOTE | 2024-07-20 05:26 | PTCARENOTE ---
ABG: ph 7.54, FAMILY DINNER SERVICE SPECIALIST notified, RR decreased from 20 to 16
[2024-07-20] MEDS: ZOSYN 50 IV ×4 (05:32→23:48)
[2024-07-20] MEDS: SOLU-CORTEF 50 MG IV ×4 (05:32→23:48)
[2024-07-20 06:00] VITALS: BMI 20.7
[2024-07-20] MEDS: FLEXBUMIN 100 IV (06:15)
[2024-07-20] MEDS: POTASSIUM PHOSPHATE 259.0909 MEQ IV (06:26)
--- NOTE | 2024-07-20 06:45 | PTCARENOTE ---
Received patient from production shift supervisor, patient is intubated with small dose fentanyl gtt infusing. She is arousable, able to sustain wakefulness, following all commands, nodding appropriately. RASS -1. She has a number 6.5 ETT AC settings
16/350/5/45, oxygen saturation is 100%. She is sinus rhythm on monitor, left radial Elise correlating with cuff pressure. All connections secured and line is zero'ed to atmospheric pressure. PAtient is NPO, left nare [place] sump to LIWD. Patient
NPO, hypoactive bowel sounds. loaiza for urine. Skin to be documented in focused shift assessment. will review orders.
[2024-07-20] MEDS: HEPARIN 5000 UNITS SC ×2 (07:14→19:31)
[2024-07-20] MEDS: DESENEX/MITRAZOL/ZEASORB 1 APPLIC TOPICAL ×2 (07:14→19:30)
[2024-07-20] MEDS: KEPPRA 500 MG IV ×2 (07:15→19:30)
[2024-07-20] MEDS: PROTONIX IV 40 MG IV (07:15)
[2024-07-20] MEDS: SUBLIMAZE 50 MCG IV (07:16)
[2024-07-20] MEDS: NSS (PRESERVATIVE FREE) 10 ML IV (07:16)
[2024-07-20] MEDS: LEVOPHED 250 IV (07:37)
[2024-07-20 07:45] VITALS: BP_SYST 104
--- NOTE | 2024-07-20 07:46 | W.PN.ANS.POP ---
Anesthesia Post Operative
- Anesthesia Post Op Note
Vital Signs Stable-See Nursing Note: Yes (Patient on vasoactive support-weaning)
Airway Patent: Yes (Patient intubated and weaning with plan to extubate today. )
Adequate Pain Control: Yes
Change in Mental Status: No
Current Postoperative Nausea & Vomiting: No
Anesthesia Complications: No
General Anesthetic Recall: No
Unplanned Admission: No
Post Op Hydration Adequate: Yes (IV hydration )
--- NOTE | 2024-07-20 07:48 | W.PN.HOSP.TC ---
Addendum entered and electronically signed by Juani Salvador MD 07/20/24 14:35:
I saw and evaluated the patient independently. I reviewed the resident�s note and agree with findings and plan as documented by Dr. Michele.
GENERAL: chronically ill appearing female intubated but awake, conversant to a point since intubated, severe scoliosis in no apparent distress
HEENT: NC/AT--NGT
HEART: regular rate and rhythm, +S1, +S2
LUNGS : clear to auscultation bilaterally
ABDOM: soft, nontender, nondistended, + bowel sounds
EXT: no cyanosis, clubbing, or edema
NEUROLOGIC: grossly intact
: loaiza in place
Abdominal pain due to internal hernia with cecal volvulus and twisting of internal vessels--apprec surgery--s/p Extended RIGHT hemicolectomy with primary stapled [id number] anastomosis -Cecum within the LEFT chest causing obstruction and volvulus
of the transverse colon, No ischemia or perforation--post op care, pain control--abx to stop after today's dosing per surgery
VDRF--intubated post op--apprec formulator help--was on wean then extubated--asked to see patient post extubation for vision changes--STAT ABG with pH 7.22, pCO2 78, pO2 88, HCO3 31.9 = mixed acid base disorder, resp acidosis with likely metabolic
alkalosis (bicarbonate High at 32)--now on BiPAP with improvement in ABG--may need re-intubation if deteriorates further
hypotension--post op--does not appear septic by criteria--cont levophed and vasopressin added, kwabena was added but did not start, vasopressin weaned to off--on IV levophed only, wean to off as able-- IVF support
Acute toxic metabolic encephalopathy from acute hypoxic respiratory failure (on O2 but does not wear it at home) due to UNINTENTIONAL opiate overdose (4mg IV morphine given by ED) in a pt with COPD--received narcan with improvement--now intubated
postop
Urinary retention- straight cath as needed--loaiza post op--d/c as per surgery, formulator
Seizure disorder--cont Keppra IV
HLD--hold oral statin
Hx CVA
H/o breast cancer s/p mastectomy
DVT proph-- subq heparin
Code status--limited -- DNI--intubated post procedure
critical care time 33 minutes
Original Note:
Today's Communication/Plan
-
- bipap
- monitor Hb
Assessment / Plan
Assessment / Plan
Assessment:
84yo F pmh COPD, seizures, CVA, PUD, diverticulitis, hx hernia repairs who presented to [facility] ED 07/18 for abdominal pain, N/V since the day before. Received 4mg morphine in ED, found to be unresponsive, improved after narcan. CT abd/pelvis c/w
internal hernia vs possible volvulized transverse colon.
Plan:
Ventilator dependent respiratory failure
- On ventilator after surgery
- weaned 07/20 -- became tachycardic post extubation -- hypercapnic on ABG -- started on BiPAP, abg normalized
Normocytic anemia
- likely multifactorial d/t hemodilution, iatrogenic from blood draws/abg draws
- monitor
- blood consent signed, active type and screen
Abdominal pain due to internal hernia w twisting of mesenteric vessels on CT s/p hemicolectomy and reduction of colonic volvulus 07/20
- judicious use of opiates w unresponsiveness in ED
- NPO, IVF
- NG tube w wall suction
- hypotensive s/p laparotomy
- appreciate surgery input
- appreciate GI input
Hypotension
- likely secondary to anesthesia effects, parasympathetic nervous system stimulation during procedure
- started on levophed gtt and vasopressin gtt
- L radial A-line inserted 07/19
- weaned off of vasopressin
- wean levophed as able
Acute toxic metabolic encephalopathy w acute hypoxic resp insufficency likelly secondary to opiate overdose
COPD
- MS improved w narcan
- monitor MS
- wean O2 as able, not on home O2
Urinary retention
- straight cath as needed
- monitor
Sore throat
- lozenges
Seizure disorder
HLD
Hx CVA
H/o breast cancer s/p mastectomy
Diet: NPO
DVT ppx: subq heparin
Code status: limited -- DNI
Anticipated Discharge: > 48 hours
Subjective/Interval History
-
Date of Service: July 20, 2024
Pt underwent exploratory laparotomy, reduction of colonic volvulus, extended right hemicolectomy with primary anastomosis yesterday. Pt hypotensive after procedure, given 500mL IVF bolus, started on norepinephrine. A-line placed for continuous BP
monitoring. Levophed requirements increased, so vasopressin was also started. This morning, pt on 5 mcg/min levophed, weaned off vasopressin.
Objective Data
-
Labs:
Laboratory Results
07/19/24 07/20/24
21:14 04:01
WBC 9.1
Hgb 10.9 L 9.4 L
Hct 33.4 L 27.9 L
Plt Count 155 D
HCO3 24.3 29.1 H
Sodium 137 138
Potassium 3.9 3.7
Chloride 107 105
Carbon Dioxide 24 27
BUN 34 H 28 H
Creatinine 0.7 0.6
Glucose 159 H 145 H
Calcium 7.6 L 8.4
Total Bilirubin 0.7
AST 21
ALT 16
Alkaline Phosphatase 46
Vital Signs:
Vital Signs
Temp Pulse Resp BP Pulse Ox
99.8 F 82 28 130/58 100
07/20/24 03:44 07/20/24 07:30 07/20/24 07:30 07/19/24 19:23 07/20/24 07:40
I&O
07/19/24 07/20/24 07/21/24
06:59 06:59 06:59
Intake Total 5282.5 / 5415.0 257.5 / 257.5
Output Total 600 / 600 1060 / 1105 45 / 45
Balance -600 / -600 4222.5 / 4310.0 212.5 / 212.5
Review of Systems
-
Unable to obtain full review of systems at this time due to: Patient Intubation
Physical Exam
-
General: Well Developed and Well Nourished
HEENT: Normocephalic and Atraumatic
Respiratory: Clear to Auscultation and Non Labored Respirations
Cardiac: Regular Rhythm and S1/S2
GI: Soft, Nontender, Nondistended and Normal Bowel Sounds
Musculoskeletal: No Clubbing, No Cyanosis and No Edema
Skin: Warm and Dry
Neuro: Awake
[2024-07-20] MEDS: MAGNESIUM SULFATE 102 GRAMS IV (08:03)
[2024-07-20 08:13] VITALS: BP_SYST 103
[2024-07-20] MEDS: FLOVENT 220 MCG INHALER 4 PUFF INH (08:14)
--- NOTE | 2024-07-20 09:12 | W.PN.GS2 ---
Today's Communication / Plan
-
-- NPO, IVF, NGT decompression
-- Vent wean per ICU
-- Increased IVF, wean pressors as able
-- Abx: Zosyn, OK to stop from surgical perspective after today
Assessment / Plan
-
Patient is an 84 yo F p/w bowel obstruction likely related to colonic volvulus
POD#1 s/p ex lap, extended RIGHT hemicolectomy
Soft BP (currently weaning down on Levo/Vaso), no tachycardia, low grade fevers overnight
WBC normalized, Hb drift, normal lytes, improvement in KATHERIN
Postoperative issues with the following:
Acute pulmonary failure likely related to significant chronic elevation of her LEFT hemidiaphragm with compression of the LEFT lung, combined with atelectasis and acute surgical issues. Continue to wean vent as tolerated further care per ICU.
Hypovolemic shock, continue to resuscitate with IV fluids and wean pressors as able
Acute blood loss anemia related to operative blood loss and and hemodilution, little concern for active bleeding, continue to trend. Okay to continue with DVT prophylaxis. Would continue to hold Plavix.
Awaiting return of bowel function, not unsurprising given recent surgery.
-- NPO, IVF, NGT decompression
-- Vent wean per ICU
-- Increased IVF, wean pressors as able
-- Abx: Zosyn, OK to stop from surgical perspective after today
-- GI: PPI
-- DVT: SQH
-- Continue to hold Plavix
Subjective Data
-
Date of Service: July 20, 2024
Intubated and sedated though able to respond to questions with shaking her head. No worsening pain. Comfortable. No flatus or BM.
Objective Data
-
Intake and Output
07/19/24 07/20/24 07/21/24
06:59 06:59 06:59
Intake Total 5282.5 / 5415.0 257.5 / 257.5
Output Total 600 / 600 1060 / 1105 65 / 65
Balance -600 / -600 4222.5 / 4310.0 192.5 / 192.5
Intake:
IV fluids (Total) 3692.5 / 3825.0 257.5 / 257.5
LR bolus 1000 / 1000
Lr 1,000 ml @ 100 mls/hr IV . 1300 / 1400 200 / 200
Q10H HUBER Rx#:[id number]
Nss 1,000 ml @ 100 mls/hr IV . 630 / 630
Q10H HUBER Rx#:[id number]
fentanyl 37.5 / 40.0 5.0 / 5.0
levophed 607.0 / 637.0 52.5 / 52.5
vasopressin 118 / 118 0 / 0
IV piggybacks 1500 / 1500
Amount instilled into GI Tube ( 90 / 90
Total)
[place] Sump 90 / 90
Output:
Gastrointestinal tube output ( 85 / 85
Total)
[place] Sump 85 / 85
Urine, Loaiza 975 / 1020
Straight cath output 600 / 600
Vital Signs
Temp Pulse Resp BP Pulse Ox
99.0 F 96 18 130/58 99
07/20/24 08:00 07/20/24 08:13 07/20/24 08:13 07/19/24 19:23 07/20/24 08:15
Lab Results
07/20/24 04:01
07/20/24 04:01
Calcium 8.4 mg/dl (8.4-10.2) 07/20/24 04:01
Phosphorus 1.6 mg/dl (2.5-4.5) L 07/20/24 04:01
Magnesium 1.8 mg/dl (1.6-2.3) 07/20/24 04:01
Total Bilirubin 0.7 mg/dl (0.2-1.3) 07/20/24 04:
AST 21 U/L (14-36) 07/20/24 04:
ALT 16 U/L (0-35) 07/20/24 04:
Alkaline Phosphatase 46 U/L (38-126) 07/20/24 04:
Total Protein 4.5 g/dl (6.3-8.2) L 07/20/24 04:
Albumin 3.0 g/dl (3.5-5.0) L 07/20/24 04:
Physical Exam
-
Gen: intubated and sedated
HEENT: NGT with clear output
Abd: soft, mild tenderness, mild distension, non-peritoneal, midline dressing c/d/i
Patient has a loaiza catheter: Yes
Patient has a central line: Yes
[2024-07-20 09:33] LABS: B.E. 4.1 mmol/L; HCO3 30.1 mmol/L (21-28); PCO2 52 mmHg (32-35); PO2 140 mmHg (83-108); pH 7.37 (7.35-7.45)
--- NOTE | 2024-07-20 10:16 | RESPNOTE ---
Respiratory: Patient extubated without incident. No stridor, no wheezes. SpO2 100% on 4 LPM nasal cannula.
--- NOTE | 2024-07-20 10:17 | PTCARENOTE ---
patient extubated to 4 L nasal cannula
--- NOTE | 2024-07-20 10:46 | CM ---
Patient seen at bedside in ICU with physicians. Patient remains on vent at this time. CM will continue to follow for discharge planning needs.
Plan; home with VN vs SNF pending medical treatment plan.
[2024-07-20 11:10] LABS: B.E. 2.8 mmol/L; HCO3 31.9 mmol/L (21-28); O2 Saturation % 97.9 % (94-98); PO2 88 mmHg (83-108); pH 7.22 (7.35-7.45)
[2024-07-20 11:13] LABS: PCO2 78 mmHg (32-35)
--- NOTE | 2024-07-20 11:13 | PTCARENOTE ---
Patient HR alarmed in 150s. assessed patient, patient was tachypneic, breathless, oxygen saturation remain in high 90s. patient stated she felt 'good' but that vision was altered. Dr. Kwon at bedside, sent ABG, ordered Bipap.
[2024-07-20 11:24] VITALS: PULSE 119; PULSE 2
[2024-07-20] MEDS: LR 1000 IV ×2 (12:05→19:43)
--- NOTE | 2024-07-20 13:07 | W.PN.INTV ---
Today's Communication / Plan
Recommendations
- Extubated to nasal cannula
- In view of developing postextubation hypercapnia, start BiPAP, with alternate with high flow nasal cannula during the day, BiPAP nightly
- Continue n.p.o. status, patient at risk of requiring reintubation
Assessment
-
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 Workup in the emergency room was concerning for
internal hernia with suspected transverse colon volvulus and gastric distention. Patient received a dose of morphine 4 mg which was followed by a period of unresponsiveness which improved with Narcan. Patient was subsequently brought to the ICU
for closer monitoring. Appliance Service Technician consultation was requested for further input. Patient has been evaluated by GI and surgery service. An NG tube was placed and patient has been placed on low intermittent suction.
#1. Abdominal pain with Colon volvulus, with gastric distention
- S/p laparotomy, right hemicolectomy and reanastomosis on 07/19. NG tube in place, continue low intermittent suction
- Hemodynamically stable
- Continue IV fluids, n.p.o., pain and nausea control
- Surgery service on case
- Continue maintenance IV fluids
#1a. Post extubation acute hypercapnic respiratory failure
- Patient has very low FEV1 at baseline with restrictive lung disease with chronic elevated left diaphragm. Post laparotomy, patient was transferred to ICU intubated.
- SAT SBT performed at 0604. Patient did well on pressure support. Subsequent arterial blood gas was reassuring
- Patient extubated to nasal cannula
- Couple of hours later, patient started to develop mildly increased work of breathing and tachypnea. Arterial blood gas suggestive of developing respiratory acidosis 7.. This is related to her known history of restrictive lung disease with
chronic hemidiaphragm elevation now additional contributing factors laparotomy, ileus and some degree of splinting probably related to pain patient also cachectic with BMI of 20.7 with significant muscle wasting on exam.
- Initiate BiPAP support for 2 hours followed by a short break alternating with high flow nasal cannula
- Discussed with daughter at bedside. Patient is cachectic and very weak. She is at risk of requiring reintubation. Continue to monitor closely in the ICU
#2. Acute encephalopathy, metabolic, related to opiate medications (07/18)
- Patient responded well to Narcan, resolved
#3. History of seizure disorder
- Since patient is n.p.o., continue IV Keppra, reportedly on p.o. Keppra 500 twice daily at home
#4. History of Asthma and restrictive lung disease
- Non-Smoker. Has second hand smoke exposure
- Restriction due to scoliosis and chronic left hemidiaphragm elevation
- Uses Anoro, Qvar and daily Azithromycin at home. Follows up with [facility]
- No wheezing on exam currently
- Supplemental O2 as needed to keep saturations above 89%
- DuoNeb as needed, continue scheduled budesonide twice daily
#5. H/O GERD
- IV PPI while NPO
Other medical diagnoses:
- TIA
- h/o Breast and Thyroid cancer
Updated patient's daughter at bedside
Critical Care time 58 mins -- The patient is admitted for acute critical illness for the treatment of vital organ failure and/or prevention of further life-threatening conditions. Total care includes time spent in review of history, physical exam,
medications, hemodynamic/ventilator parameters, laboratory data, imaging and discussion with house staff, pharmacy, respiratory therapy, laboratory inspector, and nursing.
Data:
CXR 07/2024: Chronic left hemidiaphragm elevation. Gastric distention. Bilateral atelectasis
CT Head -07/2024: No acute intracranial abnormality noted considering the enhanced technique.
Moderate periventricular small vessel ischemic disease.
Moderate acute left sphenoid sinusitis.
CT Abd/pelvis 07/2024: New findings suggesting a possible internal hernia. Clinical correlation recommended.
Edematous mesentery. Mild free fluid in the abdomen and pelvis likely reactive.
Distended stomach. New.
Severe diverticulosis. No diverticulitis.
Severe elevation of the left hemidiaphragm
ECHO 10/2019: Suboptimal parasternal views likely due to scoliosis and left mastectomy.
Small left ventricular chamber size. Normal left ventricular systolic function.
Left ventricular ejection fraction is 50-55% by visual assessment.
Mild left ventricular hypertrophy.
Stage I diastolic dysfunction suggestive of abnormal relaxation.
Mild mitral regurgitation.
Mild aortic regurgitation.
Mild tricuspid regurgitation.
Subjective Dataa
Subjective Data
Date of Service:
Date of Service: July 20, 2024
Subjective:
Patient examined multiple times throughout the day initially while she was ventilated and then later again after extubation.
Review of Systems
Genitourinary: Other (All 14 systems reviewed and negative except as stated above in the history of present illness.)
Objective Data
Data Reviewed
Vital Signs / I&O / Oxygen:
Vital Signs
Temp Pulse Resp BP Pulse Ox
97.1 F 107 28 130/58 100
07/20/24 12:21 07/20/24 10:30 07/20/24 10:30 07/19/24 19:23 07/20/24 10:30
Intake and Output
07/19/24 07/20/24 07/21/24
06:59 06:59 06:59
Intake Total 5282.5 / 5415.0 802.5 / 802.5
Output Total 600 / 600 1060 / 1105 170 / 170
Balance -600 / -600 4222.5 / 4310.0 632.5 / 632.5
SaO2 [A/C] 100
SaO2 100
Nasal Cannula flow liters per 2
minute
Physical Exam
General: Comfortable and Other (Cachectic appearing)
HEENT: Normocephalic and Other (Conjunctival pallor)
Cardiovascular: S1-S2
Respiratory: Clear, Non-Labored Respirations and Other (Decreased air entry in the right lower hemithorax)
GI: Other (NG tube in place, no bowel sounds.)
Neurology: Awake and Alert
Labs/Micro/Reports
Lab Data
07/20/24 04:01
07/20/24 04:01
Laboratory Results
07/19/24 07/19/24 07/20/24
16:46 21:14 04:01
pH 7.35 7.45 7.54 H
pCO2 52 H 35 34
pO2 188 H 143 H 175 H
HCO3 28.7 H 24.3 29.1 H
O2 Delivery Level 50
07/20/24 07/20/24
09:21 11:02
pH 7.37 7.22 L
pCO2 52 H 78 H*
pO2 140 H 88
HCO3 30.1 H 31.9 H
O2 Delivery Level Not Reportable
[2024-07-20 14:01] LABS: B.E. 6.9 mmol/L; HCO3 33.7 mmol/L (21-28); PCO2 61 mmHg (32-35); PO2 134 mmHg (83-108); pH 7.35 (7.35-7.45)
[2024-07-20 15:00] VITALS: PULSE 2; PULSE 87
[2024-07-20] MEDS: DUONEB 3 ML INH ×2 (15:11→20:30)
[2024-07-20 16:26] LABS: Blood Urea Nitrogen 24 mg/dl (7-17); Calcium 7.8 mg/dl (8.4-10.2); Carbon Dioxide 31 mmol/L (22-30); Chloride 107 mmol/L (98-107); Estimated Creatinine Clearance 48 ml/min; Glucose 117 mg/dl (70-99); Magnesium 2.1 mg/dl (1.6-2.3); Potassium 4.3 mmol/L (3.5-5.1); Sodium 139 mmol/L (135-145); eGFR > 60.00
--- NOTE | 2024-07-20 17:00 | PTCARENOTE ---
Patient now on high flow, will alternate between high flow and bipap during daytime hours and bipap HS. patient gets extremely orthopneic, repositioning without HOB flat.
[2024-07-20] MEDS: OFIRMEV 100 IV (17:32)
--- NOTE | 2024-07-20 20:16 | PTCARENOTE ---
assumed care, AAOx3, follows command, GODWIN, pt c/o 3/10 abd pain, NS on the monitor c PVCs, trace GA, +pulses, CHRISTINE stockings and B/L SCDs, BIPAP 10/ 10L, diminished and coarse throughout SpO2 100%, BSx4 hypoactive, midline abd incision two small
areas of drainage, distended, firm, tender to touch, NGT L nare 55 LIS brown output, [place] yellow output, skin and feet pale and warm to touch, wounds per worklist, RTL PICC, LR 125ml, daughter @ bedside and updated, call finch within reach,
otherwise refer to documentation
[2024-07-20 20:30] VITALS: PULSE 100; PULSE 2
[2024-07-20] MEDS: FLOVENT 220 MCG INHALER INH (20:38)
[2024-07-20] MEDS: NSS (PRESERVATIVE FREE) 0.25 ML IV ×2 (21:25→23:15)
[2024-07-20] MEDS: ATIVAN 0.5 MG IV ×2 (21:25→23:15)
[2024-07-20 23:42] VITALS: PULSE 105; PULSE 2
--- NOTE | 2024-07-21 00:12 | PTCARENOTE ---
systems reviewed, pt restless pulling gown off, removing BIPAP, CORPORATE TAX MANAGER notified Ativan ordered and given per APR, pt resting comfortable RR equal and unlabored, BP soft CORPORATE TAX MANAGER notified, CHG bath, pt does not wont to take morphine afraid of what happened in
the ED, otherwise refer to documentation.
[2024-07-21] MEDS: LR 1000 IV ×2 (01:36→03:22)
[2024-07-21 03:22] LABS: Venous Blood Gas B.E. 6.5 mmol/L (-4 to +4); Venous Blood Gas HCO3 34.2 mmol/L (22-27); Venous Blood Gas pCO2 68 mmHg (35-48); Venous Blood Gas pH 7.31 (7.32-7.43); Venous Blood Gas pO2 253 mmHg (30-50)
[2024-07-21 03:23] LABS: Venous Blood Gas O2 Therapy bipap
[2024-07-21 03:36] VITALS: PULSE 2; PULSE 89
--- NOTE | 2024-07-21 03:37 | PTCARENOTE ---
systems reviewed, BP soft LR bolus per order, labs sent, CO2 high, GEM SETTER notified, RT changed BIPAP setting 15/ on RA, repeat gas pending, otherwise refer to documentation
[2024-07-21 03:55] LABS: Blood Urea Nitrogen 19 mg/dl (7-17); Calcium 7.9 mg/dl (8.4-10.2); Carbon Dioxide 32 mmol/L (22-30); Chloride 106 mmol/L (98-107); Estimated Creatinine Clearance 48 ml/min; Glucose 105 mg/dl (70-99); Magnesium 2.1 mg/dl (1.6-2.3); Potassium 4.2 mmol/L (3.5-5.1); Sodium 140 mmol/L (135-145); eGFR > 60.00
--- NOTE | 2024-07-21 04:01 | PTCARENOTE ---
RT @ bedside pts SpO2 dropped low 70's on RA mins after adjustment, 4L applied sats recovered in 90's
[2024-07-21 04:11] LABS: Hematocrit 27.2 % (37.0-47.0); Hemoglobin 8.9 g/dL (12.0-16.0); Mean Corp Hgb Conc. 32.7 g/dL (33.0-37.0); Mean Corpuscular Hgb 31.7 pg (27.0-31.0); Mean Corpuscular Volume 96.8 fL (81.0-99.0); Platelet Count 113 10^3/uL (130-400); Red Blood Cell Count 2.81 10^6/uL (4.20-5.40); Red Cell Dist. Width 12.8 % (11.5-14.5); White Blood Cell Count 8.4 10^3/uL (4.8-10.8)
[2024-07-21 04:44] LABS: B.E. 6.3 mmol/L; HCO3 32.8 mmol/L (21-28); O2 Saturation % 97.5 % (94-98); PCO2 58 mmHg (32-35); PO2 71 mmHg (83-108); pH 7.36 (7.35-7.45)
[2024-07-21] MEDS: SOLU-CORTEF 50 MG IV (05:11)
[2024-07-21] MEDS: ZOSYN 50 IV ×3 (05:12→18:02)
[2024-07-21 05:49] VITALS: BMI 20.6
--- NOTE | 2024-07-21 06:00 | PTCARENOTE ---
when turning pt, noticed she had a BM that was dark maroon red, DRY BOSS notified, pt denies pain
--- NOTE | 2024-07-21 06:10 | W.PN.UPDATE ---
Addendum entered and electronically signed by NOY Wilkins 07/21/24 06:22:
Dr. Garvey recommended protonix IV BID not gtt. Orders updated.
Original Note:
Update Note
Progress Note Update
Patient had small maroon bloody bowel movement. SBP via delfino 120-130s, off vasopressors. Hgb 8.9, patient denies any acute abdominal pain or nausea. Drainage out of gastric tube clear green. Dr. Kwon, firmware developer, and Dr. Garvey, general
surgeon both updated. Will initiate protonix gtt, obtain lactic acid, and serial H&H.
[2024-07-21 06:34] LABS: Lactic Acid 0.6 mmol/L (0.7-2.0)
--- NOTE | 2024-07-21 07:45 | W.PN.GS2 ---
Addendum entered and electronically signed by Ian Kurtz MD 07/21/24 16:11:
Hemoglobin stable. HD stable. Two further small to moderate bloody stools. Will continue to hold SQ heparin for now. Continue to trend hemoglobin. No other interventions at this time.
Original Note:
Today's Communication / Plan
-
-- NPO, TPN for today
-- Clamp NGT, would start TF tomorrow if tolerates
-- DC steroids (were started due to dual pressor requirements)
-- DVT: SQH (hold given GI bleeeding)
-- PT/OT
Assessment / Plan
-
Patient is an 84 yo F p/w bowel obstruction likely related to colonic volvulus
POD#2 s/p ex lap, extended RIGHT hemicolectomy
Improved BP (off pressors), intermittent tachycardia, afenrile over 24 hours
WBC normalized, Hb drift, CMP pending
Postoperative issues with the following:
Acute pulmonary failure likely related to significant chronic elevation of her LEFT hemidiaphragm with compression of the LEFT lung, combined with atelectasis and acute surgical issues. Tenuous situation, may need reintubation. Care per ICU
Hypovolemic shock, improved, off pressors, continue with IV fluids though will need to balance pulm affects
Acute blood loss anemia related to operative blood loss, hemodilution, and antiplatelet therapy. Bleeding from anastomosis, little concern for severe active bleeding given HD stability, continue to trend and transfuse as needed. Would hold on DVT
ppx and Plavix given drift until stable
Signs of return of bowel function, would hold on PO intake given pulm issues and risks of aspiration at this time. Plan for TPN given severe malnutrition pre-op and continued delays in ability to start PO intake. Would consider switch to TF in the
next 24-48 hours if tolerates clamping NGT.
-- NPO, TPN for today
-- Clamp NGT, would start TF tomorrow if tolerates
-- Pulm care per ICU
-- Abx: Zosyn, OK to stop from surgical perspective
-- DC steroids (were started due to dual pressor requirements)
-- GI: PPI
-- DVT: SQH (hold given GI bleeeding)
-- Continue to hold Plavix
-- PT/OT
Subjective Data
-
Date of Service: July 21, 2024
No reports of worsening abdominal pain. Continued pulmonary issues. Reports passing flatus, reports bloody BM. No fevers.
Objective Data
-
Intake and Output
07/20/24 07/21/24 07/22/24
06:59 06:59 06:59
Intake Total 5282.5 / 5415.0 4367.5 / 4367.5
Output Total 1060 / 1105 1015 / 1015
Balance 4222.5 / 4310.0 3352.5 / 3352.5
Intake:
IV fluids (Total) 3692.5 / 3825.0 3067.5 / 3067.5
LR bolus 1000 / 1000
Lr 1,000 ml @ 125 mls/hr IV . 1300 / 1400 2950 / 2950
Q8H HUBER Rx#:[id number]
Nss 1,000 ml @ 100 mls/hr IV . 630 / 630
Q10H HUBER Rx#:[id number]
fentanyl 37.5 / 40.0 5.0 / 5.0
levophed 607.0 / 637.0 112.5 / 112.5
vasopressin 118 / 118 0 / 0
IV piggybacks 1500 / 1500 1150 / 1150
Amount instilled into GI Tube ( 90 / 90 150 / 150
Total)
[place] Sump 90 / 90 150 / 150
Output:
Gastrointestinal tube output ( /
Total)
[place] Sump /
Urine, Loaiza 975 / 1020 1015 / 1015
Other:
Number of unmeasured liquid
stools
Rectum 1
Vital Signs
Temp Pulse Resp BP Pulse Ox
97.6 F 105 22 130/58 93
07/21/24 07:29 07/21/24 06:00 07/21/24 06:00 07/19/24 19:23 07/21/24 03:00
Calcium 7.9 mg/dl (8.4-10.2) L 07/21/24 03:17
Phosphorus 1.6 mg/dl (2.5-4.5) L 07/20/24 04:01
Magnesium 2.1 mg/dl (1.6-2.3) 07/21/24 03:17
Total Bilirubin 0.7 mg/dl (0.2-1.3) 07/20/24 04:01
AST 21 U/L (14-36) 07/20/24 04:01
ALT 16 U/L (0-35) 07/20/24 04:01
Alkaline Phosphatase 46 U/L (38-126) 07/20/24 04:01
Total Protein 4.5 g/dl (6.3-8.2) L 07/20/24 04:01
Albumin 3.0 g/dl (3.5-5.0) L 07/20/24 04:01
Physical Exam
-
Gen: NAD
Abd: soft, mild tenderness, mild distension, non-peritoneal, midline dressing c/d/i
Patient has a loaiza catheter: Yes
Patient has a central line: Yes
[2024-07-21] MEDS: FLOVENT 220 MCG INHALER 2 PUFF INH (07:55)
[2024-07-21] MEDS: DUONEB 3 ML INH ×4 (07:55→20:17)
--- NOTE | 2024-07-21 08:05 | W.PN.HOSP.TC ---
Addendum entered and electronically signed by Juani Salvador MD 07/21/24 17:27:
I saw and evaluated the patient independently. I reviewed the resident�s note and agree with findings and plan as documented by Dr. Michele.
GENERAL: chronically ill appearing female getting re-intubated
HEENT: NC/AT--NGT
HEART: regular rate and rhythm, +S1, +S2
LUNGS : clear to auscultation bilaterally
ABDOM: soft, nontender, nondistended, + bowel sounds
EXT: no cyanosis, clubbing, or edema
NEUROLOGIC: grossly intact
: loaiza in place
Abdominal pain due to internal hernia with cecal volvulus and twisting of internal vessels--apprec surgery--s/p Extended RIGHT hemicolectomy with primary stapled [id number] anastomosis -Cecum within the left chest causing obstruction and volvulus
of the transverse colon, No ischemia or perforation--post op care, pain control--abx restarted 07/20/24--PPI IV BID--started TPN
VDRF--intubated post op, extubated, re-intubated 07/21--apprec shaft headman help--patient told shaft headman that she would not want to be reintubated again if she failed extubation this time
anemia--was told pt has maroon stool x 1 but none since--surgery aware--likely multifactorial from dilution (IVF), possible acute blood loss from GI source/bleed--off steroids on IV PPI BID--trending HGB--holding SC heparin
hypotension--post op--does not appear septic by criteria--remains on levophed and vasopressin added, kwabena was added but did not start, vasopressin off-- IVF support
Acute toxic metabolic encephalopathy from acute hypoxic respiratory failure (on O2 but does not wear it at home) due to UNINTENTIONAL opiate overdose (4mg IV morphine given by ED) in a pt with COPD--received narcan with improvement--now intubated
postop
Urinary retention- straight cath as needed--loaiza post op--d/c as per surgery, shaft headman
Seizure disorder--cont Keppra IV
HLD--hold oral statin
Hx CVA
H/o breast cancer s/p mastectomy
DVT proph-- subq heparin
Code status--limited -- DNI--intubated post procedure
critical care time 31 minutes
Original Note:
Today's Communication/Plan
-
.
Assessment / Plan
Assessment / Plan
Assessment:
84yo F [facility] COPD, seizures, CVA, PUD, diverticulitis, hx hernia repairs who presented to [facility] ED 07/18 for abdominal pain, N/V since the day before. Received 4mg morphine in ED, found to be unresponsive, improved after narcan. CT abd/pelvis c/w
internal hernia vs possible volvulized transverse colon.
Plan:
Ventilator dependent respiratory failure
- On ventilator after surgery
- weaned 07/20 -- became tachycardic post extubation -- hypercapnic on ABG -- started on BiPAP, abg normalized
- BiPAP adjusted to 15/5
- intubated 07/21
Normocytic anemia
Thrombocytopenia
- likely multifactorial d/t hemodilution, iatrogenic from blood draws/abg draws
- monitor
- blood consent signed, active type and screen
Abdominal pain due to internal hernia w twisting of mesenteric vessels on CT s/p hemicolectomy and reduction of colonic volvulus 07/20
- judicious use of opiates w unresponsiveness in ED
- NPO, IVF
- NG tube w wall suction
- hypotensive s/p laparotomy
- appreciate surgery input
- appreciate GI input
Hypotension
- likely secondary to anesthesia effects, parasympathetic nervous system stimulation during procedure
- started on levophed gtt and vasopressin gtt - weaned off
- L radial A-line inserted 07/19
Urinary retention
- straight cath as needed
- monitor
Sore throat
- lozenges
Seizure disorder
HLD
Hx CVA
H/o breast cancer s/p mastectomy
Diet: TPN
DVT ppx: subq heparin
Code status: FULL CODE
Anticipated Discharge: > 48 hours
Subjective/Interval History
-
Date of Service: July 21, 2024
TPN started today. Overnight pt hypotensive, given LR bolus. CO2 high, BiPAP settings adjusted to 15/5 on RA. SpO2 dropped to low 70s on RA, 4L O2 applied w recovery to SpO2 90s. Pt had a BM that was dark maroon red. Pt later had resp failure and
underwent RSI.
Objective Data
-
Labs:
Laboratory Results
07/21/24 07/21/24 07/21/24
03:17 04:37 07:40
WBC 8.4
Hgb 8.9 L
Hct 27.2 L
Plt Count 113 L D
HCO3 32.8 H
Sodium 140 Pending
Potassium 4.2 Pending
Chloride 106 Pending
Carbon Dioxide 32 H Pending
BUN 19 H Pending
Creatinine 0.5 L Pending
Glucose 105 H Pending
Calcium 7.9 L Pending
Total Bilirubin Pending
AST Pending
ALT Pending
Alkaline Phosphatase Pending
07/21/24 07/21/24 07/21/24
08:00 14:00 20:00
WBC
Hgb Pending Pending Pending
Hct Pending Pending Pending
Plt Count
HCO3
Sodium
Potassium
Chloride
Carbon Dioxide
BUN
Creatinine
Glucose
Calcium
Total Bilirubin
AST
ALT
Alkaline Phosphatase
Vital Signs:
Vital Signs
Temp Pulse Resp BP Pulse Ox
97.6 F 105 22 130/58 93
07/21/24 07:29 07/21/24 06:00 07/21/24 06:00 07/19/24 19:23 07/21/24 03:00
I&O
07/20/24 07/21/24 07/22/24
06:59 06:59 06:59
Intake Total 5282.5 / 5415.0 4367.5 / 4367.5
Output Total 1060 / 1105 1015 / 1015
Balance 4222.5 / 4310.0 3352.5 / 3352.5
Review of Systems
-
History Source: Patient
Constitutional: Reports No Symptoms
Respiratory: Reports Trouble Breathing
Cardiac: Reports No Symptoms
Abdomen/GI: Reports No Symptoms
Neuro: Reports No Symptoms
Physical Exam
-
General: Cachectic
HEENT: Normocephalic and Atraumatic
Respiratory: Accessory Resp Muscle Use and Decreased Breath Sounds
Cardiac: Regular Rhythm and S1/S2
GI: Soft, Nontender, Nondistended and Other (hypoactive BS)
Musculoskeletal: No Clubbing, No Cyanosis and No Edema
Skin: Warm and Dry
Neuro: Awake
[2024-07-21] MEDS: OFIRMEV 100 IV (08:18)
[2024-07-21] MEDS: PROTONIX IV 40 MG IV ×2 (08:23→20:45)
[2024-07-21] MEDS: NSS (PRESERVATIVE FREE) 10 ML IV ×2 (08:23→20:45)
[2024-07-21] MEDS: DESENEX/MITRAZOL/ZEASORB 1 APPLIC TOPICAL ×2 (08:23→20:45)
[2024-07-21] MEDS: KEPPRA 500 MG IV ×2 (08:23→20:45)
[2024-07-21 08:28] LABS: Hematocrit 28.6 % (37.0-47.0); Hemoglobin 9.4 g/dL (12.0-16.0)
[2024-07-21 08:46] LABS: ALT (SGPT) 16 U/L (0-35); AST (SGOT) 22 U/L (14-36); Alkaline Phosphatase 37 U/L (38-126); Phosphorus 2.5 mg/dl (2.5-4.5); Total Bilirubin 0.4 mg/dl (0.2-1.3); Total Protein 4.6 g/dl (6.3-8.2); Triglycerides 53 mg/dl (10-149)
--- NOTE | 2024-07-21 09:02 | PTCARENOTE ---
report received, assessment per work list. patient plan of care reviewed with surgery. ngt clamped. Ofirmev for pain administered. paitent drowsy, easily arousable. mildly anxious. improved with family at the bedside. nsr, sinus tach with frequent
pvc. right triple line picc patent with good blood returns. left radial arterial line with good blood return and waveform. placed on high flow by RT. dyspnea with minimal exertion, orthopnea. weak cough, expectorating thick white sputum utilizing
Yankauer suction. ngt placement verified. clamped per surgery. abdominal dressing in place. incontinent maroon liquid stool. generalized anasarca. dry chain operator at bedside, reviewed plan of care with patient, family. to begin tpn tonight. labs sent
--- NOTE | 2024-07-21 10:47 | PTCARENOTE ---
patient more lethargic. placed on Bipap. Family Dentist in to speak with patient and daughter. patient o be reintubated
--- NOTE | 2024-07-21 11:06 | OR.RPT ---
Operative Report
Operative Report
Rapid Sequence Intubation
Indication. Respiratory failure, inability to wean from BIPAP, respiratory muscle fatigue
Consent: From patient as well as daughter at bedside
Pre-oxygenation: BIPAP with O2. pre-intubation o2 sat 99-100%
Pre-medication: None
Procedure: Patient was placed in supine position while on BIPAP with O2 flowing. 15 mg of Etomidate was used as induction agent followed by 40 mg of Rocuronium as paralytic, . BIPAP was then removed and BVM was utilized to oxygenate and ventilate.
Once patient was apneic and relaxed, Glidescope with blade size #3 was used and grade 1 view of vocal cords was obtained. 7.5 size ET tube was advanced and stylet was removed. Tube was advanced to 22 cm without any difficulty and colorimetric
confirmation was obtained. Tube was secured and connected to ventilator.
Patient stayed hemodynamically stable throughout the procedure. O2 saturation stayed 100% thru the procedure.
Attempts: 1
Complications: None. Post intubation CXR and ABG ordered
Time spent: 25 mins
Date of service: 07/21/2024
[2024-07-21] MEDS: SUBLIMAZE 50 MCG IV ×3 (11:20→19:35)
[2024-07-21] MEDS: DIPRIVAN 100 IV ×2 (11:23→22:52)
[2024-07-21 11:44] LABS: B.E. 6.9 mmol/L; HCO3 32.4 mmol/L (21-28); O2 Saturation % 99.8 % (94-98); PCO2 50 mmHg (32-35); PO2 180 mmHg (83-108); pH 7.42 (7.35-7.45)
[2024-07-21] MEDS: SUBLIMAZE 100 IV (11:49)
[2024-07-21 11:52] LABS: Glucose - Point of Care 59 mg/dl (70-99)
[2024-07-21] MEDS: DEXTROSE 50% SYRINGE 12.5 GRAMS IV (12:15)
--- NOTE | 2024-07-21 12:19 | PTCARENOTE ---
Addendum entered by Lexie Melvin RN 07/21/24 13:20:
hypotensive with sedation, levophed resumed
Original Note:
patient reintubated without issues. post intubation cxr completed. patient transfer to sport bed. reassessed. small maroon stool. rotation and percussion initiated. suctioned for very large white andujar plug followed by bloody secretions. increased
pain cues, restless. fentanyl bolusX2, gtt initiated. propofol per work list. accucheck 59. d/w lighting fixture installer, D50, fluids changed. daughter requests DNR status, pressors ok if needed. lighting fixture installer updated with her request
[2024-07-21 12:22] LABS: Triglycerides 70 mg/dl (10-149)
[2024-07-21] MEDS: D5W 1000 IV (12:30)
[2024-07-21 12:44] LABS: Glucose - Point of Care 133 mg/dl (70-99)
--- NOTE | 2024-07-21 12:47 | W.PN.INTV ---
Today's Communication / Plan
Recommendations
- Patient reintubated, ET tube 7.5, continue volume assist mechanical ventilation
- Plan for SAT and SBT, was
- Start propofol and fentanyl for sedation
- Postintubation chest x-ray and ABG
- CODE STATUS changed to DNR
Assessment
-
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 Workup in the emergency room was concerning for
internal hernia with suspected transverse colon volvulus and gastric distention. Patient received a dose of morphine 4 mg which was followed by a period of unresponsiveness which improved with Narcan. Patient was subsequently brought to the ICU
for closer monitoring. Claim Processing Specialist consultation was requested for further input. Patient has been evaluated by GI and surgery service. An NG tube was placed and patient has been placed on low intermittent suction.
#1. Abdominal pain with Colon volvulus, with gastric distention
- S/p laparotomy, right hemicolectomy and reanastomosis on 07/19. NG tube in place, continue low intermittent suction
- Hemodynamically stable
- Continue IV fluids, n.p.o., pain and nausea control
- Surgery service on case
- Start TPN
#1a. Post extubation acute hypercapnic respiratory failure
- Patient has very low FEV1 at baseline with restrictive lung disease with chronic elevated left diaphragm. Post laparotomy, patient was transferred to ICU intubated.
- SAT SBT performed at 07/20. Patient did well on pressure support. Subsequent arterial blood gas was reassuring
- Patient extubated to nasal cannula
- Couple of hours later, patient started to develop mildly increased work of breathing and tachypnea. Arterial blood gas suggestive of developing respiratory acidosis 7.. This is related to her known history of restrictive lung disease with
chronic hemidiaphragm elevation now additional contributing factors laparotomy, ileus and some degree of splinting probably related to pain, patient also cachectic with BMI of 20.7 with significant muscle wasting on exam.
- 07/21, after being on overnight BiPAP, patient was transitioned to high flow nasal cannula. About 40 minutes into, patient started to tire out and have increased work of breathing.
- Discussed with daughter at bedside. Patient is cachectic and very weak. Considering patient is unable to be weaned off BiPAP almost 24 hours postextubation, decision was made to reintubate the patient
- Patient reintubated, 07/21, without difficulty. Sedation with propofol and fentanyl. Will check ABG and post intubation chest x-ray.
#2. Acute encephalopathy, metabolic, related to opiate medications (07/18)
- Patient responded well to Narcan, resolved
#3. History of seizure disorder
- Since patient is n.p.o., continue IV Keppra, reportedly on p.o. Keppra 500 twice daily at home
#4. History of Asthma and restrictive lung disease
- Non-Smoker. Has second hand smoke exposure
- Restriction due to scoliosis and chronic left hemidiaphragm elevation
- Uses Anoro, Qvar and daily Azithromycin at home. Follows up with [facility]
- No wheezing on exam currently
- Supplemental O2 as needed to keep saturations above 89%
- DuoNeb 4 times daily continue scheduled budesonide twice daily
#5. H/O GERD
- IV PPI while NPO
Other medical diagnoses:
- TIA
- h/o Breast and Thyroid cancer
Goals of care: I met with patient's daughter at bedside. Patient is cachectic appearing, is weak. She had to be reintubated today due to persistent respiratory failure and inability to wean off BiPAP 24 hours after extubation. We discussed
various options including plan to wean again in 24 hours and see if patient can be successfully extubated considering her underlying severe restrictive lung disease, low baseline FEV1 and cachexia, there is a high likelihood that patient may need
prolonged ventilatory support. We also discussed prolonged ventilation need, tracheostomy etc. Patient and patient's daughter were fairly clear that they would not want patient to be on long-term ventilatory support and will not want to pursue
tracheostomy. Patient also opted that she would want to be reintubated second time but if she fails she would not want to be reintubated at her time and would want to pursue more comfort focused care. Also CODE STATUS was discussed and changed to
DNR.
Critical Care time 68 mins -- The patient is admitted for acute critical illness for the treatment of vital organ failure and/or prevention of further life-threatening conditions. Total care includes time spent in review of history, physical exam,
medications, hemodynamic/ventilator parameters, laboratory data, imaging and discussion with house staff, pharmacy, respiratory therapy, exchange teller, and nursing.
Data:
CXR 07/2024: Chronic left hemidiaphragm elevation. Gastric distention. Bilateral atelectasis
CT Head -07/2024: No acute intracranial abnormality noted considering the enhanced technique.
Moderate periventricular small vessel ischemic disease.
Moderate acute left sphenoid sinusitis.
CT Abd/pelvis 07/2024: New findings suggesting a possible internal hernia. Clinical correlation recommended.
Edematous mesentery. Mild free fluid in the abdomen and pelvis likely reactive.
Distended stomach. New.
Severe diverticulosis. No diverticulitis.
Severe elevation of the left hemidiaphragm
ECHO 10/2019: Suboptimal parasternal views likely due to scoliosis and left mastectomy.
Small left ventricular chamber size. Normal left ventricular systolic function.
Left ventricular ejection fraction is 50-55% by visual assessment.
Mild left ventricular hypertrophy.
Stage I diastolic dysfunction suggestive of abnormal relaxation.
Mild mitral regurgitation.
Mild aortic regurgitation.
Mild tricuspid regurgitation.
Subjective Dataa
Subjective Data
Date of Service:
Date of Service: July 21, 2024
Subjective:
Patient initially examined while on BiPAP was comfortable, once transition to high flow cannula, she started tiring out about 40 minutes into it.
Review of Systems
Genitourinary: Other (No new symptoms reported, reports feeling tired and short of breath.)
Objective Data
Data Reviewed
Vital Signs / I&O / Oxygen:
Vital Signs
Temp Pulse Resp BP Pulse Ox
97.6 F 101 25 130/58 100
07/21/24 07:29 07/21/24 10:00 07/21/24 10:00 07/19/24 19:23 07/21/24 11:27
Intake and Output
07/20/24 07/21/24 07/22/24
06:59 06:59 06:59
Intake Total 5282.5 / 5415.0 4367.5 / 4492.5 480 / 480
Output Total 1060 / 1105 1015 / 1015 160 / 160
Balance 4222.5 / 4310.0 3352.5 / 3477.5 320 / 320
SaO2 [A/C] 100
SaO2 100
Nasal Cannula flow liters per 50
minute
Physical Exam
General: Respiratory Distress (Mild respiratory distress) and Other (Cachectic appearing)
HEENT: Normocephalic and Other (Conjunctival pallor)
Cardiovascular: S1-S2
Respiratory: Clear, Accessory Resp Muscle Use and Other (Decreased air entry in the left lower hemithorax)
GI: Other (NG tube in place, no bowel sounds.)
Neurology: Awake and Alert
Skin: Warm
Labs/Micro/Reports
Laboratory Results
07/20/24 07/21/24 07/21/24
13:55 04:37 11:35
pH 7.35 7.36 7.42
pCO2 61 H 58 H 50 H
pO2 134 H 71 L 180 H
HCO3 33.7 H 32.8 H 32.4 H
O2 Delivery Level
[2024-07-21 13:00] VITALS: BMI 24.1
[2024-07-21] MEDS: LR IV (13:43)
--- NOTE | 2024-07-21 13:46 | PN.CDI ---
CDI
- -
CDI:
Physician Documentation Request
Admit Date: 07/18/24 18:06
Dear Doctor Leny,
Patient admitted with bowel obstruction s/p right hemicolectomy.
6/ PN, 'Normocytic anemia....likely multifactorial d/t hemodilution, iatrogenic from blood draws/abg draws
Hgb documented below:
Laboratory Tests
07/18/24 07/19/24 07/20/24
11:21 21:14 04:01
Hgb 14.7 10.9 L 9.4 L
07/21/24
03:17
Hgb 8.9 L
Based on the above, please clarify, in your progress note, which of the following is the most likely type of anemia you are evaluating, monitoring and/or treating?
Acute blood loss anemia
Normocytic anemia only
Other
Use of terms such as suspected, likely, concern for, or probable (associated with a specific diagnosis that is being evaluated, monitored, or treated as if it exists) are acceptable and can be coded in the inpatient setting, when documented at the
time of discharge.
Thank you,
Dia CADENA,RN,CCDS
CDI Specialist
Available via [facility] text
Please use your independent medical judgment in providing your response.
[2024-07-21 14:22] LABS: Hematocrit 27.8 % (37.0-47.0); Hemoglobin 9.3 g/dL (12.0-16.0)
--- NOTE | 2024-07-21 14:25 | PN.CDI ---
CDI
- -
CDI:
Physician Documentation Request
Admit Date: 07/18/24 18:06
Dear Doctor Jerardo,
Patient admitted with bowel obstruction s/p right hemicolectomy.
07/21 Gen Surg note, 'Patient is an 84 yo F p/w bowel obstruction likely related to colonic volvulus...POD#2 s/p ex lap, extended RIGHT hemicolectomy.. NPO,TPN for today.'
Please provide in your note the extent of the documented bowel obstruction:
Complete bowel obstruction
Partial bowel obstruction
Other
Use of terms such as suspected, likely, concern for, or probable (associated with a specific diagnosis that is being evaluated, monitored, or treated as if it exists) are acceptable and can be coded in the inpatient setting, when documented at the
time of discharge.
Thank you,
Dia WORTHYN,RN,CCDS
CDI Specialist
Available via [employer] text
Please use your independent medical judgment in providing your response.
[2024-07-21 14:43] LABS: ALT (SGPT) 16 U/L (0-35); AST (SGOT) 21 U/L (14-36); Albumin 3.1 g/dl (3.5-5.0); Alkaline Phosphatase 41 U/L (38-126); Blood Urea Nitrogen 21 mg/dl (7-17); Calcium 8.5 mg/dl (8.4-10.2); Carbon Dioxide 28 mmol/L (22-30); Chloride 106 mmol/L (98-107); Estimated Creatinine Clearance 48 ml/min; Glucose 95 mg/dl (70-99); Magnesium 2.1 mg/dl (1.6-2.3); Phosphorus 2.4 mg/dl (2.5-4.5); Potassium 4.1 mmol/L (3.5-5.1); Sodium 140 mmol/L (135-145); Total Bilirubin 0.5 mg/dl (0.2-1.3); Total Protein 4.8 g/dl (6.3-8.2); Triglycerides 70 mg/dl (10-149); eGFR > 60.00
[2024-07-21] MEDS: LEVOPHED 250 IV (14:47)
--- NOTE | 2024-07-21 15:21 | CM ---
Patient seen at bedside with physicians. Patient placed back on ventilator at this time. CM will continue to follow for discharge planning needs.
Plan;SNF pending medical treatment plan
--- NOTE | 2024-07-21 16:11 | PTCARENOTE ---
patient reassessed, two more bloody maroon stools. suctioned post percussion for large plugs. breath sounds with coarse rhonchi bilaterally, rubs noted. fio2 wean by RT. corn miller, surgery updated. ngt placed back to LIS.
[2024-07-21 18:06] LABS: Glucose - Point of Care 118 mg/dl (70-99)
--- NOTE | 2024-07-21 20:00 | PTCARENOTE ---
Received pt intubated and sedated on propofol and fentanyl gtts. Fentanyl bolus given with good effect as pt was trying to sit up, pull blankets and pillows off bed. Pt. nods head appropriately, follows commands, attempts to communicate. GODWIN. SR
with PACs on tele. HR 80s. L radial A Line transduced and zeroed. On levophed to maintain MAP>65 - see worklist. +1 gen anasarca. Afebrile. TEDS and SCDs maintained. #7.5 ETT, moved to the center. Tolerating AC 16/350/40%/+5. Spo2 97-99%. Lungs
coarse throughout. Percussion Q4 for 30 min. Hypoactive bowel sounds. No BM this shift. Midline abd incision with aquacell intact. NG to LIWS. [place] draining yellow urine - see I&O. R TL PICC with prop, fent, D5W @ 75ml/hr. Turning q2.
Daughter at bedside - updated.
[2024-07-21] MEDS: FLOVENT 220 MCG INHALER 4 PUFF INH (20:18)
[2024-07-21] MEDS: Parenteral Nutrition, Central 730 IV (20:46)
[2024-07-21 21:07] LABS: Hematocrit 26.8 % (37.0-47.0); Hemoglobin 9.2 g/dL (12.0-16.0)
--- NOTE | 2024-07-21 21:29 | PTCARENOTE ---
Pt. BP labile - goes from 70s/50s to 110s/60s within seconds on A line. Levo has been titrated up to 8mcg from 4mcg since change of shift. HR 80s-110- also changing within seconds. No P waves noted on tele - EKG obtained - accelerated junctional
rhythm with PVCs. PEELED POTATO INSPECTOR notified. BMP + mag ordered and drawn.
[2024-07-21 22:03] LABS: Blood Urea Nitrogen 19 mg/dl (7-17); Calcium 7.5 mg/dl (8.4-10.2); Carbon Dioxide 24 mmol/L (22-30); Chloride 108 mmol/L (98-107); Estimated Creatinine Clearance 48 ml/min; Glucose 142 mg/dl (70-99); Magnesium 1.8 mg/dl (1.6-2.3); Potassium 3.2 mmol/L (3.5-5.1); Sodium 135 mmol/L (135-145); eGFR > 60.00
[2024-07-21] MEDS: KCL 270 MEQ IV (22:52)
[2024-07-21] MEDS: MAGNESIUM SULFATE 100 IV (22:52)
[2024-07-22] MEDS: ZOSYN 50 IV ×3 (00:14→11:15)
[2024-07-22 00:22] LABS: Glucose - Point of Care 256 mg/dl (70-99)
--- NOTE | 2024-07-22 00:23 | PTCARENOTE ---
K and Mag riders administered per order.
Midnight BG = 256 - D5W placed on hold per orders.
Sport bed alarming frequently and blinking service required - unable to do percussion or lateral rotation at this time. Awaiting replacement bed from [facility].
[2024-07-22] MEDS: LEVOPHED 250 IV ×4 (01:26→19:25)
[2024-07-22 03:32] LABS: B.E. 7.5 mmol/L; PCO2 44 mmHg (32-35); PO2 163 mmHg (83-108); pH 7.47 (7.35-7.45)
--- NOTE | 2024-07-22 03:36 | PTCARENOTE ---
Addendum entered by Nataly Vega RN 07/22/24 03:39:
No BMs overnight so far.
Original Note:
[facility] unable to locate another sport bed- he stated he will pass on to dayshift. Current sport bed still unable to use percussion and rotation features.
Bathed with CHG. Labs drawn.
[2024-07-22 03:40] LABS: Hematocrit 25.4 % (37.0-47.0); Hemoglobin 8.7 g/dL (12.0-16.0); Mean Corp Hgb Conc. 34.3 g/dL (33.0-37.0); Mean Corpuscular Hgb 31.6 pg (27.0-31.0); Mean Corpuscular Volume 92.4 fL (81.0-99.0); Mean Platelet Volume 9.8 fL (7.4-10.4); Platelet Count 193 10^3/uL (130-400); Red Blood Cell Count 2.75 10^6/uL (4.20-5.40); Red Cell Dist. Width 12.7 % (11.5-14.5); White Blood Cell Count 11.9 10^3/uL (4.8-10.8)
[2024-07-22 04:00] LABS: Blood Urea Nitrogen 19 mg/dl (7-17); Calcium 7.7 mg/dl (8.4-10.2); Carbon Dioxide 27 mmol/L (22-30); Chloride 107 mmol/L (98-107); Estimated Creatinine Clearance 48 ml/min; Glucose 212 mg/dl (70-99); Phosphorus 1.1 mg/dl (2.5-4.5); Potassium 4.2 mmol/L (3.5-5.1); Sodium 135 mmol/L (135-145); eGFR > 60.00
--- NOTE | 2024-07-22 04:26 | PTCARENOTE ---
BP continues to be labile. Now on 11mcg levophed. STRUCTURAL WELDER aware. Lactic acid ordered.
[2024-07-22 04:52] LABS: Lactic Acid 1.3 mmol/L (0.7-2.0)
[2024-07-22] MEDS: SODIUM PHOSPHATE 255 MEQ IV (05:09)
[2024-07-22] MEDS: CALCIUM GLUCONATE 100 IV (05:09)
[2024-07-22 05:23] LABS: Glucose - Point of Care 229 mg/dl (70-99)
[2024-07-22] MEDS: NOVOLOG FLEXPEN-LOW RESISTANCE 2 UNITS SC (05:39)
[2024-07-22 06:00] VITALS: BMI 24.9
--- NOTE | 2024-07-22 07:15 | PTCARENOTE ---
Received patient from shift boss, patient remains intubated and sedated. Is easily arousable, lethargic but appropriate and following commands. She has a number 7.5 ETT vent settings AC 16/40%/350/5 ?oxygen saturation is 98%. She has had some
heart rate irregularity, alarming Afib/frequent PVCs, irrigular rhythm etc. Remains on Levophed for blood pressure support. Patient has scds and bayron stockings. Patient is NPO, has TPN infusing. [place] for urine. Midline incision aquacell dry and
intact. Will review orders, but at this time, no plan to wean from ventilator.
[2024-07-22] MEDS: FLOVENT 220 MCG INHALER 4 PUFF INH ×2 (07:25→19:48)
[2024-07-22] MEDS: DUONEB 3 ML INH ×4 (07:25→19:47)
--- NOTE | 2024-07-22 07:34 | W.PN.HOSP.TC ---
Addendum entered and electronically signed by Juani Salvador MD 07/22/24 17:00:
I saw and evaluated the patient independently. I reviewed the resident�s note and agree with findings and plan as documented by Dr. Michele.
GENERAL: chronically ill appearing female intubated
HEENT: NC/AT--NGT
HEART: regular rate and rhythm, +S1, +S2
LUNGS : clear to auscultation bilaterally
ABDOM: soft, nontender, nondistended, + bowel sounds
EXT: no cyanosis, clubbing, or edema
NEUROLOGIC: grossly intact
: loaiza in place
Abdominal pain due to internal hernia with cecal volvulus and twisting of internal vessels--apprec surgery--s/p Extended RIGHT hemicolectomy with primary stapled whhz-in-deot anastomosis -Cecum within the left chest causing obstruction and volvulus
of the transverse colon, No ischemia or perforation--post op care, pain control--abx stopped--PPI IV BID--started TPN
VDRF--intubated post op, extubated, re-intubated 07/21--apprec pre owned sales consultant help--patient told pre owned sales consultant that she would not want to be reintubated again if she failed extubation this time
anemia--was told pt has maroon stool x 1 but none since--surgery aware--likely multifactorial from dilution (IVF), possible acute blood loss from GI source/bleed--off steroids on IV PPI BID--trending HGB--holding SC heparin
hypotension--post op--does not appear septic by criteria--remains on levophed-- IVF support--TPN
Acute toxic metabolic encephalopathy from acute hypoxic respiratory failure (on O2 but does not wear it at home) due to UNINTENTIONAL opiate overdose (4mg IV morphine given by ED) in a pt with COPD--received narcan with improvement--now intubated
postop
Urinary retention- straight cath as needed--loaiza post op--d/c as per surgery, pre owned sales consultant
Seizure disorder--cont Keppra IV
HLD--hold oral statin
Hx CVA
H/o breast cancer s/p mastectomy
DVT proph-- subq heparin
Code status--limited -- DNI--intubated post procedure
Original Note:
Today's Communication/Plan
-
- monitor
Assessment / Plan
Assessment / Plan
Assessment:
84yo F [facility] COPD, seizures, CVA, PUD, diverticulitis, hx hernia repairs who presented to [facility] ED 07/18 for abdominal pain, N/V since the day before. Received 4mg morphine in ED, found to be unresponsive, improved after narcan. CT abd/pelvis c/w
internal hernia vs possible volvulized transverse colon.
Plan:
Ventilator dependent respiratory failure
- On ventilator after surgery
- weaned 07/20 -- became tachycardic post extubation -- hypercapnic on ABG -- started on BiPAP, abg normalized. BiPAP adjusted to 15/5
- intubated 07/21
Normocytic anemia
Thrombocytopenia
- likely multifactorial d/t hemodilution, iatrogenic from blood draws/abg draws
- monitor
- blood consent signed, active type and screen
Abdominal pain due to internal hernia w twisting of mesenteric vessels on CT s/p hemicolectomy and reduction of colonic volvulus 07/20
- judicious use of opiates w unresponsiveness in ED
- NPO, IVF
- NG tube w wall suction
- hypotensive s/p laparotomy
- appreciate surgery input
- appreciate GI input
Hypotension
- likely secondary to anesthesia effects, parasympathetic nervous system stimulation during procedure
- started on levophed gtt and vasopressin gtt - weaned off
- L radial A-line inserted 07/19
Urinary retention
- straight cath as needed
- monitor
Sore throat
- lozenges
Seizure disorder
HLD
Hx CVA
H/o breast cancer s/p mastectomy
Diet: TPN
DVT ppx: subq heparin
Code status: FULL CODE
Anticipated Discharge: > 48 hours
Subjective/Interval History
-
Date of Service: July 22, 2024
Overnight - accelerated junctional rhythm with PVCs, given K and Mg riders. Levo titrated up to 11 mcg/min.
Objective Data
-
Labs:
Laboratory Results
07/21/24 07/21/24 07/22/24
20:52 21:27 03:20
WBC 11.9 H
Hgb 9.2 L 8.7 L
Hct 26.8 L 25.4 L
Plt Count 193 D
HCO3 32.0 H
Sodium 135 135
Potassium 3.2 L 4.2 D
Chloride 108 H 107
Carbon Dioxide 24 27
BUN 19 H 19 H
Creatinine 0.4 L 0.5 L
Glucose 142 H 212 H
Calcium 7.5 L 7.7 L
Vital Signs:
Vital Signs
Temp Pulse Resp BP Pulse Ox
98.5 F 80 16 130/58 99
07/22/24 07:15 07/22/24 07:26 07/22/24 07:26 07/19/24 19:23 07/22/24 07:26
I&O
07/21/24 07/22/24 07/23/24
06:59 06:59 06:59
Intake Total 4367.5 / 4492.5 2796.0 / 2796.0
Output Total 1015 / 1015 1045 / 1045
Balance 3352.5 / 3477.5 1751.0 / 1751.0
Review of Systems
-
Unable to obtain full review of systems at this time due to: Patient Intubation
Physical Exam
-
General: Cachectic
HEENT: Normocephalic
Respiratory: Clear to Auscultation and Accessory Resp Muscle Use
Cardiac: Regular Rhythm and S1/S2
GI: Soft, Nontender, Nondistended and Normal Bowel Sounds
Musculoskeletal: No Clubbing, No Cyanosis and No Edema
Skin: Warm and Dry
Neuro: Awake
Psych: Calm
[2024-07-22] MEDS: DESENEX/MITRAZOL/ZEASORB 1 APPLIC TOPICAL ×2 (08:02→20:01)
[2024-07-22] MEDS: KEPPRA 500 MG IV ×2 (08:03→20:02)
[2024-07-22] MEDS: NSS (PRESERVATIVE FREE) 10 ML IV ×2 (08:03→20:01)
[2024-07-22] MEDS: PROTONIX IV 40 MG IV ×2 (08:04→20:01)
[2024-07-22 08:29] VITALS: BP 90/50
[2024-07-22] MEDS: OFIRMEV 67.5 MG IV ×2 (09:26→21:04)
--- NOTE | 2024-07-22 09:39 | W.PN.GS2 ---
Today's Communication / Plan
-
-- No major changes from surgical perspective
-- Would try to limit narcotics as this is likely exacerbating a lot of her BP issues leading to increased IVF and potential pulm issues
Assessment / Plan
-
Patient is an 84 yo F p/w bowel obstruction likely related to colonic volvulus
POD#3 s/p ex lap, extended RIGHT hemicolectomy
Labile BP, tachycardia
Leukocytosis likely stress related possible steroids previously given, Hb stable, BMP with hyperglycemia from TPN
Postoperative issues with the following:
Acute pulmonary failure likely related to significant chronic elevation of her LEFT hemidiaphragm with compression of the LEFT lung, combined with atelectasis and acute surgical issues. Tenuous situation, reintubated. Care per ICU
Hypovolemic shock, improved, much of her lability at this time is likely due to vasoplegic shock related to narcotics
Acute blood loss anemia related to operative blood loss, hemodilution, and antiplatelet therapy. Bleeding from anastomosis, little concern for severe active bleeding. Would hold on DVT ppx and Plavix given drift until stable.
Signs of return of bowel function, would hold on PO intake given pulm issues and risks of aspiration. Continue with TPN
-- NPO, TPN for today
-- NGT to suction
-- Schedule IV Tylenol
-- Pulm and critical care per ICU
-- Abx: Zosyn, OK to stop from surgical perspective
-- GI: PPI
-- DVT: SQH (hold given GI bleeding)
-- Continue to hold Plavix
-- PT/OT
Subjective Data
-
Date of Service: July 22, 2024
Intubated and sedated. Two further mild bloody stools. Afebrile.
Objective Data
-
Intake and Output
07/21/24 07/22/24 07/23/24
06:59 06:59 06:59
Intake Total 4367.5 / 4492.5 2796.0 / 2842.6 131.1 / 131.1
Output Total 1015 / 1015 1045 / 1170 450 / 450
Balance 3352.5 / 3477.5 1751.0 / 1672.6 -318.9 / -318.9
Intake:
IV fluids (Total) 3067.5 / 3192.5 2316.0 / 2362.6 131.1 / 131.1
D5w 1,000 ml @ 75 mls/hr IV . 875 / 875
[id number] HUBER Rx#:[id number]
KCl 268 / 268
Lr 1,000 ml @ 75 mls/hr IV . 2950 / 3075 500 / 500
[id number] HUBER Rx#:[id number]
Mag 100 / 100
diprivan 86.4 / 89.2 8.4 / 8.4
fentanyl 5.0 / 5.0 45.0 / 47.5 6.3 / 6.3
levophed 112.5 / 112.5 441.6 / 482.9 116.4 / 116.4
vasopressin 0 / 0
IV piggybacks 1150 / 1150 300 / 300
Amount instilled into GI Tube ( 150 / 150 180 / 180
Total)
Ferry Sump 150 / 150 180 / 180
Output:
Gastrointestinal tube output ( 100 / 100
Total)
Ferry Sump 100 / 100
Urine, Loaiza 1015 / 1015 945 / 1070 450 / 450
Other:
Number of unmeasured liquid
stools
Rectum 1 2
Vital Signs
Temp Pulse Resp BP Pulse Ox
98.5 F 107 20 130/58 96
07/22/24 07:15 07/22/24 09:00 07/22/24 09:00 07/19/24 19:23 07/22/24 09:00
Lab Results
07/22/24 03:20
07/22/24 03:20
Calcium 7.7 mg/dl (8.4-10.2) L 07/22/24 03:20
Phosphorus 1.1 mg/dl (2.5-4.5) L 07/22/24 03:20
Magnesium 2.0 mg/dl (1.6-2.3) 07/22/24 03:20
Total Bilirubin 0.5 mg/dl (0.2-1.3) 07/21/24 07:40
AST 21 U/L (14-36) 07/21/24 07:40
ALT 16 U/L (0-35) 07/21/24 07:40
Alkaline Phosphatase 41 U/L (38-126) 07/21/24 07:40
Total Protein 4.8 g/dl (6.3-8.2) L 07/21/24 07:40
Albumin 3.1 g/dl (3.5-5.0) L 07/21/24 07:40
Physical Exam
-
Gen: intubated and sedated
Abd: soft, mild distension, midline dressing c/d/i
Patient has a loaiza catheter: Yes
Patient has a central line: Yes
--- NOTE | 2024-07-22 10:11 | PTCARENOTE ---
Multi-disciplinary rounds completed with Dr. Kwon, supportive care ongoing, no plans to wean today.
[2024-07-22] MEDS: SUBLIMAZE 50 MCG IV (11:12)
--- NOTE | 2024-07-22 11:38 | W.PN.INTV ---
Today's Communication / Plan
Recommendations
- Recheck phosphorus level later today
- Continue current volume assist-control ventilation and sedation
- Wean Levophed as tolerated
- If Levophed further down, will attempt SAT SBT in a.m.
Assessment
-
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 Workup in the emergency room was concerning for
internal hernia with suspected transverse colon volvulus and gastric distention. Patient received a dose of morphine 4 mg which was followed by a period of unresponsiveness which improved with Narcan. Patient was subsequently brought to the ICU
for closer monitoring. Quality And Reliability Engineer consultation was requested for further input. Patient has been evaluated by GI and surgery service. An NG tube was placed and patient has been placed on low intermittent suction.
07/22 overview: Patient currently intubated mechanically ventilated. Levophed infusing at 9. Fentanyl at 12.5 and propofol at 10. TPN infusing currently at 30 mL/h. Over last 24 hrs had 3 small bowel movements with maroon blood noted. Overall
low volume.
7.4 7/40/163 on volume assist-control, 350/16/40%/5. Lactate reassuring at 1.3.
Overnight increasing Levophed requirement. Also patient developing intermittent paroxysmal premature APCs and junctional tachycardia.
#1. Abdominal pain with Colon volvulus, with gastric distention
- S/p laparotomy, right hemicolectomy and reanastomosis on 07/19. NG tube in place, continue low intermittent suction
- Continue TPN, n.p.o., pain and nausea control. Await return of bowel function
- Surgery service on case
- Low phosphorus replaced, follow-up repeat labs later today.
#1a. Post extubation acute hypercapnic respiratory failure
- Patient has very low FEV1 at baseline with restrictive lung disease with chronic elevated left diaphragm. Post laparotomy, patient was transferred to ICU intubated.
- SAT/SBT performed an 07/20. Patient did well on pressure support. Subsequent arterial blood gas was reassuring
- Patient extubated to nasal cannula 07/20.
- Couple of hours later, patient started to develop mildly increased work of breathing and tachypnea. Arterial blood gas suggestive of developing respiratory acidosis 7.. This is related to her known history of restrictive lung disease with
chronic hemidiaphragm elevation now additional contributing factors laparotomy, ileus and some degree of splinting probably related to pain, patient also cachectic with BMI of 20.7 with significant muscle wasting on exam.
- 07/21, after being on overnight BiPAP, patient was transitioned to high flow nasal cannula. About 40 minutes into, patient started to tire out and have increased work of breathing.
- Patient reintubated, 07/21, without difficulty. Sedation with propofol and fentanyl
- In view of intermittent cardiac arrhythmia, increasing Levophed need, patient not ready for SAT/SBT today.
#1b. Hypotension, Shock. Suspect post laparotomy vasoplegia
- Continue TPN
- Empiric coverage with Zosyn, will complete total of 7 days
- Continue Levophed to keep MAP above 65
- Lowered sedation as tolerated
- Patient is afebrile, WBC count minimally elevated 11.9. Lactate is reassuring at 1.3. pH 7.47.
#2. Acute encephalopathy, metabolic, related to opiate medications (07/18)
- Patient responded well to Narcan, resolved
#3. History of seizure disorder
- Since patient is n.p.o., continue IV Keppra, reportedly on p.o. Keppra 500 twice daily at home
#4. History of Asthma and restrictive lung disease
- Non-Smoker. Has second hand smoke exposure
- Restriction due to scoliosis and chronic left hemidiaphragm elevation
- Uses Anoro, Qvar and daily Azithromycin at home. Follows up with [facility]
- No wheezing on exam currently
- Supplemental O2 as needed to keep saturations above 89%
- DuoNeb 4 times daily continue scheduled budesonide twice daily
#5. H/O GERD
- IV PPI while NPO
Other medical diagnoses:
- TIA
- h/o Breast and Thyroid cancer
Goals of care: 07/21 I met with patient's daughter at bedside. Patient is cachectic appearing, is weak. She had to be reintubated today due to persistent respiratory failure and inability to wean off BiPAP 24 hours after extubation. We discussed
various options including plan to wean again in 24 hours and see if patient can be successfully extubated considering her underlying severe restrictive lung disease, low baseline FEV1 and cachexia, there is a high likelihood that patient may need
prolonged ventilatory support. We also discussed prolonged ventilation need, tracheostomy etc. Patient and patient's daughter were fairly clear that they would not want patient to be on long-term ventilatory support and will not want to pursue
tracheostomy. Patient also opted that she would want to be reintubated second time but if she fails she would not want to be reintubated at her time and would want to pursue more comfort focused care. Also CODE STATUS was discussed and changed to
DNR.
Critical Care time 52 mins -- The patient is admitted for acute critical illness for the treatment of vital organ failure and/or prevention of further life-threatening conditions. Total care includes time spent in review of history, physical exam,
medications, hemodynamic/ventilator parameters, laboratory data, imaging and discussion with house staff, pharmacy, respiratory therapy, fire hydrant operator, and nursing.
Data:
CXR 07/2024: Chronic left hemidiaphragm elevation. Gastric distention. Bilateral atelectasis
CT Head -07/2024: No acute intracranial abnormality noted considering the enhanced technique.
Moderate periventricular small vessel ischemic disease.
Moderate acute left sphenoid sinusitis.
CT Abd/pelvis 07/2024: New findings suggesting a possible internal hernia. Clinical correlation recommended.
Edematous mesentery. Mild free fluid in the abdomen and pelvis likely reactive.
Distended stomach. New.
Severe diverticulosis. No diverticulitis.
Severe elevation of the left hemidiaphragm
ECHO 10/2019: Suboptimal parasternal views likely due to scoliosis and left mastectomy.
Small left ventricular chamber size. Normal left ventricular systolic function.
Left ventricular ejection fraction is 50-55% by visual assessment.
Mild left ventricular hypertrophy.
Stage I diastolic dysfunction suggestive of abnormal relaxation.
Mild mitral regurgitation.
Mild aortic regurgitation.
Mild tricuspid regurgitation.
Subjective Dataa
Subjective Data
Date of Service:
Date of Service: July 22, 2024
Subjective:
Patient currently intubated, mechanically ventilated and sedated
Review of Systems
General: Unobtainable - Sedation
Objective Data
Data Reviewed
Vital Signs / I&O / Oxygen:
Vital Signs
Temp Pulse Resp BP Pulse Ox
98.1 F 88 24 130/58 98
07/22/24 11:08 07/22/24 11:12 07/22/24 11:12 07/19/24 19:23 07/22/24 11:12
Intake and Output
07/21/24 07/22/24 07/23/24
06:59 06:59 06:59
Intake Total 4367.5 / 4492.5 2796.0 / 2842.6 210.8 / 210.8
Output Total 1015 / 1015 1045 / 1170 800 / 800
Balance 3352.5 / 3477.5 1751.0 / 1672.6 -589.2 / -589.2
SaO2 [A/C] 98
SaO2 98
Nasal Cannula flow liters per 50
minute
Physical Exam
General: Comfortable
HEENT: Normocephalic and Other (Conjunctival pallor)
Cardiovascular: S1-S2
Respiratory: Clear and Other (Decreased air entry in the left lower hemithorax)
GI: Other (NG tube in place, no bowel sounds.)
Neurology: Other (Drowsy but wakes up with little stimulation)
Skin: Warm
Labs/Micro/Reports
Lab Data
07/22/24 03:20
07/22/24 03:20
Laboratory Results
07/21/24 07/22/24
11:35 03:20
pH 7.42 7.47 H
pCO2 50 H 44 H
pO2 180 H 163 H
HCO3 32.4 H 32.0 H
O2 Delivery Level
[2024-07-22 11:44] VITALS: BP 87/47
[2024-07-22] MEDS: NOVOLOG FLEXPEN-MODERATE RESISTANCE SC (11:55)
[2024-07-22 12:03] LABS: Glucose - Point of Care 173 mg/dl (70-99)
[2024-07-22] MEDS: NOVOLOG FLEXPEN-MODERATE RESISTANCE 1 UNITS SC ×3 (13:00→23:44)
[2024-07-22] MEDS: NOVOLOG FLEXPEN-LOW RESISTANCE SC (13:00)
[2024-07-22 14:39] LABS: Hematocrit 27.3 % (37.0-47.0); Hemoglobin 9.2 g/dL (12.0-16.0)
--- NOTE | 2024-07-22 14:47 | PTCARENOTE ---
Patient had small bowel movement/ reddish/maroon, notified surgery and sent H&H. continuing supportive care.
[2024-07-22 15:16] LABS: Phosphorus 1.9 mg/dl (2.5-4.5)
[2024-07-22] MEDS: DIPRIVAN 100 IV (15:50)
--- NOTE | 2024-07-22 16:38 | CM ---
Patient seen at bedside with physicians. Patient daughter was present. Patient continues to be on Ventilator and plan is for continued medical/surgical treatment plan. CM will continue to follow for discharge planning needs.
Plan;SNF pending medical treatment plans
[2024-07-22] MEDS: SODIUM PHOSPHATE 253.75 MEQ IV (17:09)
[2024-07-22 17:55] LABS: Glucose - Point of Care 174 mg/dl (70-99)
[2024-07-22] MEDS: SUBLIMAZE 100 IV (19:22)
[2024-07-22] MEDS: Parenteral Nutrition, Central 730 IV (21:01)
[2024-07-22 23:00] VITALS: BP 78/48
[2024-07-22 23:53] LABS: Glucose - Point of Care 158 mg/dl (70-99)
[2024-07-23] VITALS (37 sets, daily range): BP systolic 68–157; BP diastolic 50–100; BMI 24.4
--- NOTE | 2024-07-23 00:05 | PTCARENOTE ---
Pt remains intubated/sedated with propofol/fentanyl, RASS 0--2 as ordered. Pt wakes up to voice and calmly follows commands. 100.2 axillary temp, Tylenol PRN given. Monitor reading sinus rhythm, PAC and PVC noted. Arterial line zeroed, Levo titrated
to clinical endpoints. Pulses palpable, anasarca +2. BP labile with sedation and Sport 2 bed turning (transducer not at desired position at times). #7.5 ETT vent settings as ordered. Minimal secretions. NGT clamped. Abdomen tender, fent gtt
titrated. Midline aquacell CDI. [place] draining ample amounts clear yellow urine. Will monitor.
[2024-07-23 02:52] LABS: B.E. 11.5 mmol/L; HCO3 35.1 mmol/L (21-28); O2 Saturation % 99.9 % (94-98); PCO2 41 mmHg (32-35); PO2 140 mmHg (83-108); pH 7.54 (7.35-7.45)
[2024-07-23 03:14] LABS: Hematocrit 28.7 % (37.0-47.0); Hemoglobin 9.7 g/dL (12.0-16.0); Mean Corp Hgb Conc. 33.8 g/dL (33.0-37.0); Mean Corpuscular Hgb 31.4 pg (27.0-31.0); Mean Corpuscular Volume 92.9 fL (81.0-99.0); Mean Platelet Volume 10.1 fL (7.4-10.4); Platelet Count 198 10^3/uL (130-400); Red Blood Cell Count 3.09 10^6/uL (4.20-5.40); Red Cell Dist. Width 13.1 % (11.5-14.5); White Blood Cell Count 10.5 10^3/uL (4.8-10.8)
[2024-07-23 03:38] LABS: Blood Urea Nitrogen 15 mg/dl (7-17); Calcium 8.2 mg/dl (8.4-10.2); Carbon Dioxide 30 mmol/L (22-30); Chloride 106 mmol/L (98-107); Estimated Creatinine Clearance 48 ml/min; Glucose 152 mg/dl (70-99); Magnesium 1.8 mg/dl (1.6-2.3); Phosphorus 2.8 mg/dl (2.5-4.5); Potassium 4.1 mmol/L (3.5-5.1); Sodium 139 mmol/L (135-145); eGFR > 60.00
--- NOTE | 2024-07-23 04:37 | PTCARENOTE ---
No change in previous assessment. Pt remains on fent/prop/levo, titrating to clinical endpoints. BP very labile. Am labs sent and resulted. Pt resting comfortably. Updated daughter on phone twice overnight. Will monitor.
[2024-07-23 06:06] LABS: Glucose - Point of Care 141 mg/dl (70-99)
[2024-07-23] MEDS: NOVOLOG FLEXPEN-MODERATE RESISTANCE SC (06:09)
[2024-07-23] MEDS: DUONEB 3 ML INH ×4 (07:41→19:31)
[2024-07-23] MEDS: FLOVENT 220 MCG INHALER 4 PUFF INH ×2 (07:41→19:32)
--- NOTE | 2024-07-23 08:44 | W.PN.HOSP.TC ---
Today's Communication/Plan
-
planned extubation
Assessment / Plan
Assessment / Plan
pt is an 84 year old female
Abdominal pain due to internal hernia with cecal volvulus and twisting of internal vessels--apprec surgery--s/p Extended RIGHT hemicolectomy with primary stapled dxhb-[id number] anastomosis on 07/19/24 -Cecum within the left chest causing obstruction and
volvulus of the transverse colon, No ischemia or perforation--post op care, pain control--abx stopped per surgery--PPI IV BID--TPN
VDRF--intubated post op, extubated, re-intubated 07/21--apprec shoe cleaner help--patient told shoe cleaner that she would not want to be reintubated again if she failed extubation this time, therefore, will proceed with comfort measures if does not do
well
anemia--was told pt has maroon stool--surgery aware--likely multifactorial from dilution (IVF), possible acute blood loss from GI source/bleed--off steroids on IV PPI BID--HGB 9.7--holding SC heparin
hypotension--post op--does not appear septic by criteria--remains on levophed-- IVF support--TPN
Acute toxic metabolic encephalopathy from acute hypoxic respiratory failure (on O2 but does not wear it at home) due to UNINTENTIONAL opiate overdose (4mg IV morphine given by ED) in a pt with COPD--received narcan with improvement--now intubated
postop
Urinary retention- straight cath as needed--loaiza post op--d/c as per surgery, shoe cleaner
Seizure disorder--cont Keppra IV
HLD--hold oral statin
Hx CVA
H/o breast cancer s/p mastectomy
DVT proph-- subq heparin
Code status--limited -- DNI--intubated post procedure--plans for extubation today
Total Critical Care Time 31 minutes. I was immediately available to the patient and staff. I personally examined, reviewed labs, diagnostic images/reports, interpretations, treatment plans, discussed patient care with other providers and family
or caregivers (if patient is unable to make decisions), entered orders as appropriate and documented the medical record.
Anticipated Discharge: > 48 hours
Subjective/Interval History
-
Date of Service: July 23, 2024
pt awake but intubated--daughter at bedside
Objective Data
-
Labs:
Laboratory Results
07/23/24
02:40
WBC 10.5
Hgb 9.7 L
Hct 28.7 L
Plt Count 198
HCO3 35.1 H
Sodium 139
Potassium 4.1
Chloride 106
Carbon Dioxide 30
BUN 15
Creatinine 0.5 L
Glucose 152 H
Calcium 8.2 L
Vital Signs:
max temp for 24 hours
07/22/24
19:41
Temp 100.2 F
Vital Signs
Temp Pulse Resp BP Pulse Ox
98.5 F 86 16 101/68 99
07/23/24 04:12 07/23/24 07:45 07/23/24 07:45 07/23/24 06:00 07/23/24 07:45
I&O
07/22/24 07/23/24 07/24/24
06:59 06:59 06:59
Intake Total 2796.0 / 2842.6 1563.3 / 1563.3
Output Total 1045 / 1170 3065 / 3065
Balance 1751.0 / 1672.6 -1501.7 / -1501.7
Review of Systems
-
All other systems: Reviewed and negative
Physical Exam
-
General: Intubated and Appears Chronically Ill (frail, scoliotic)
HEENT: Normocephalic and Atraumatic
Respiratory: Clear to Auscultation; Negative Wheezes, Rales or Rhonchi
Cardiac: Regular Rhythm and S1/S2; Negative Murmur
GI: Soft, Nontender, Nondistended and Normal Bowel Sounds
Genito-urinary: Loaiza
Musculoskeletal: No Clubbing, No Cyanosis and No Edema
Skin: Warm
Neuro: Awake and Alert
Psych: Calm
[2024-07-23] MEDS: DESENEX/MITRAZOL/ZEASORB 1 APPLIC TOPICAL ×2 (08:46→21:00)
[2024-07-23] MEDS: NSS (PRESERVATIVE FREE) 10 ML IV ×2 (08:51→21:00)
[2024-07-23] MEDS: KEPPRA 500 MG IV ×2 (08:51→21:00)
[2024-07-23] MEDS: PROTONIX IV 40 MG IV ×2 (08:52→21:00)
--- NOTE | 2024-07-23 08:54 | W.PN.INTV ---
Today's Communication / Plan
Recommendations
- No respiratory rate to 14, mild respiratory alkalosis
- SAT/SBT
- Goals of care discussions
Assessment
-
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 Workup in the emergency room was concerning for
internal hernia with suspected transverse colon volvulus and gastric distention. Patient received a dose of morphine 4 mg which was followed by a period of unresponsiveness which improved with Narcan. Patient was subsequently brought to the ICU
for closer monitoring. Ornamental Ironworker Helper consultation was requested for further input. Patient has been evaluated by GI and surgery service. An NG tube was placed and patient has been placed on low intermittent suction.
07/23 overview: Patient currently intubated mechanically ventilated. Levophed infusing at 12. Current infusions, fentanyl, propofol as well as TPN. No bowel movement overnight, NG tube in place, small volume bilious output.
7.54/41/146 on volume assist-control, 350/16/40%/5.
Overnight increasing Levophed requirement.
#1. Abdominal pain with Colon volvulus, with gastric distention
- S/p laparotomy, right hemicolectomy and reanastomosis on 07/19. NG tube in place, continue low intermittent suction
- Continue TPN, n.p.o., pain and nausea control. Await return of bowel function
- Surgery service on case
- Low phosphorus replaced, follow-up repeat labs improved
#1a. Post extubation acute hypercapnic respiratory failure
- Patient has very low FEV1 at baseline with restrictive lung disease with chronic elevated left diaphragm. Post laparotomy, patient was transferred to ICU intubated.
- SAT/SBT performed an 07/20. Patient did well on pressure support. Subsequent arterial blood gas was reassuring
- Patient extubated to nasal cannula 07/20.
- Couple of hours later, patient started to develop mildly increased work of breathing and tachypnea. Arterial blood gas suggestive of developing respiratory acidosis 7.22/78. This is related to her known history of restrictive lung disease with
chronic hemidiaphragm elevation now additional contributing factors laparotomy, ileus and some degree of splinting probably related to pain, patient also cachectic with BMI of 20.7 with significant muscle wasting on exam.
- 07/21, after being on overnight BiPAP, patient was transitioned to high flow nasal cannula. About 40 minutes into, patient started to tire out and have increased work of breathing.
- Patient reintubated, 07/21, without difficulty. Sedation with propofol and fentanyl
- 07/23, discussed with family at bedside, updated about current condition. SAT SBT trial today.
#1b. Hypotension, Shock. Suspect post laparotomy vasoplegia
- Continue TPN
- Empiric coverage with Zosyn, will complete total of 7 days
- Continue Levophed to keep MAP above 65
- Lowered sedation as tolerated
- Patient is afebrile, pH rather alkalotic.
#2. Acute encephalopathy, metabolic, related to opiate medications (07/18)
- Patient responded well to Narcan, resolved
#3. History of seizure disorder
- Since patient is n.p.o., continue IV Keppra, reportedly on p.o. Keppra 500 twice daily at home
#4. History of Asthma and restrictive lung disease
- Non-Smoker. Has second hand smoke exposure
- Restriction due to scoliosis and chronic left hemidiaphragm elevation
- Uses Anoro, Qvar and daily Azithromycin at home. Follows up with [facility]
- No wheezing on exam currently
- Supplemental O2 as needed to keep saturations above 89%
- DuoNeb 4 times daily continue scheduled budesonide twice daily
#5. H/O GERD
- IV PPI while NPO
Other medical diagnoses:
- TIA
- h/o Breast and Thyroid cancer
Goals of care: 07/21 I met with patient's daughter at bedside. Patient is cachectic appearing, is weak. She had to be reintubated today due to persistent respiratory failure and inability to wean off BiPAP 24 hours after extubation. We discussed
various options including plan to wean again in 24 hours and see if patient can be successfully extubated considering her underlying severe restrictive lung disease, low baseline FEV1 and cachexia, there is a high likelihood that patient may need
prolonged ventilatory support. We also discussed prolonged ventilation need, tracheostomy etc. Patient and patient's daughter were fairly clear that they would not want patient to be on long-term ventilatory support and will not want to pursue
tracheostomy. Patient also opted that she would want to be reintubated second time but if she fails she would not want to be reintubated at her time and would want to pursue more comfort focused care. Also CODE STATUS was discussed and changed to
DNR.
Critical Care time 42 mins -- The patient is admitted for acute critical illness for the treatment of vital organ failure and/or prevention of further life-threatening conditions. Total care includes time spent in review of history, physical exam,
medications, hemodynamic/ventilator parameters, laboratory data, imaging and discussion with house staff, pharmacy, respiratory therapy, manufacturing storeperson, and nursing.
Data:
CXR 07/2024: Chronic left hemidiaphragm elevation. Gastric distention. Bilateral atelectasis
CT Head -07/2024: No acute intracranial abnormality noted considering the enhanced technique.
Moderate periventricular small vessel ischemic disease.
Moderate acute left sphenoid sinusitis.
CT Abd/pelvis 07/2024: New findings suggesting a possible internal hernia. Clinical correlation recommended.
Edematous mesentery. Mild free fluid in the abdomen and pelvis likely reactive.
Distended stomach. New.
Severe diverticulosis. No diverticulitis.
Severe elevation of the left hemidiaphragm
ECHO 10/2019: Suboptimal parasternal views likely due to scoliosis and left mastectomy.
Small left ventricular chamber size. Normal left ventricular systolic function.
Left ventricular ejection fraction is 50-55% by visual assessment.
Mild left ventricular hypertrophy.
Stage I diastolic dysfunction suggestive of abnormal relaxation.
Mild mitral regurgitation.
Mild aortic regurgitation.
Mild tricuspid regurgitation.
Subjective Dataa
Subjective Data
Date of Service:
Date of Service: July 23, 2024
Subjective:
Patient continues to be intubated, mechanically ventilated and sedated.
Review of Systems
General: Other (Patient intubated.)
Objective Data
Data Reviewed
Vital Signs / I&O / Oxygen:
Vital Signs
Temp Pulse Resp BP Pulse Ox
98.5 F 86 16 101/68 99
07/23/24 04:12 07/23/24 07:45 07/23/24 07:45 07/23/24 06:00 07/23/24 07:45
Intake and Output
07/22/24 07/23/24 07/24/24
06:59 06:59 06:59
Intake Total 2796.0 / 2842.6 1563.3 / 1563.3
Output Total 1045 / 1170 3065 / 3065
Balance 1751.0 / 1672.6 -1501.7 / -1501.7
SaO2 [A/C] 98
SaO2 99
Nasal Cannula flow liters per 50
minute
Physical Exam
General: Comfortable
HEENT: Normocephalic and Other (Conjunctival pallor)
Cardiovascular: S1-S2
Respiratory: Clear and Other (Decreased air entry in the left lower hemithorax)
GI: Other (NG tube in place, no bowel sounds.)
Neurology: Other (Awake)
Skin: Warm
Labs/Micro/Reports
Lab Data
07/23/24 02:40
07/23/24 02:40
Laboratory Results
07/23/24
02:40
pH 7.54 H
pCO2 41 H
pO2 140 H
HCO3 35.1 H
O2 Delivery Level
--- NOTE | 2024-07-23 09:15 | PTCARENOTE ---
Rec'd pt at 0800 resting in bed. Rec'd pt sedated on Diprivan at 10 mcg and Fentanyl at 50 mcg. Pt initally with eyes closed but readily opens them to verbal stimuli. Nodding head appropirately and following basic commands.. Nodded head no to having
pain. RASS is a 0 to -1. GODWIN but very weakly. Skin is pale pink wm an dry. Respirs are intact on the vent. #7.5 Ett retaped at the 21 cm dante center of the mouth. Vent settings AC 16/tv 350/5 peep. Fio2 40%. BS are sl coarse throughout. Suctioned
for small amt of clear secretions. + cough and gag. Adds occasional breaths and some additional volume at times. Denies shortness of breath. Monitor SR. VS as documented. Rec'd pt on IV Levophed at 12 mcg -will try to wean as tolerated keeping MAP's
>65. + pulses. +2 gen anasarca. Denies chest pain. L radial a line intact-site wnl. Is positional. When waveform is good is within 10-15 mm/hg of cuff BP. Abd is soft with rare hypoactive BS. L nare [place] NG to low int suction- 55 cm dante. Draining
small amts of clear/greenish secretions. Midline abd incision with aquacell dressing with few spots of old drainage. Smear of burgundy stool. [place] intact for yellow urine. IV TPN, Fentanyl, Levophed and Diprivan all infusing via R arm TL PICC site
wnl. Repositioned. On Rotation on SPORT bed. Percussion q4hrs. Pts daughter in with pt, plan of care reviewed.
--- NOTE | 2024-07-23 09:15 | PTCARENOTE ---
Additonal assessment- TPN also infusing via RTL PICC at 30 ml/hr
--- NOTE | 2024-07-23 10:00 | PTCARENOTE ---
Placed on CPAP 5/PS 10 wean currently. Pts daughter at the bedside. Pt is wakeful and nodding approp. Total 600 mls of urine emptied so far from [place]. VS as documented. Will try to wean Levophed as tolerated.
[2024-07-23 10:12] LABS: Glycohemoglobin (HgbA1c) 5.3 % (4.0-5.6)
--- NOTE | 2024-07-23 11:15 | PTCARENOTE ---
Continues to tolerate CPAP 5/PS 10 with tV mostly in the 300's. RR 18-22. Sats 98%. Levophed currently at 10 mcg. Weaning as BP tolerates.
[2024-07-23] MEDS: LEVOPHED 250 IV ×3 (11:49→23:47)
[2024-07-23 11:56] LABS: B.E. 11.8 mmol/L; HCO3 34.8 mmol/L (21-28); O2 Saturation % 99.6 % (94-98); PCO2 38 mmHg (32-35); PO2 151 mmHg (83-108); pH 7.57 (7.35-7.45)
[2024-07-23 11:57] LABS: O2 Therapy CPAP 5/PS 10 40%
[2024-07-23 12:00] LABS: Glucose - Point of Care 153 mg/dl (70-99)
[2024-07-23] MEDS: NOVOLOG FLEXPEN-MODERATE RESISTANCE 1 UNITS SC ×2 (12:50→17:43)
--- NOTE | 2024-07-23 12:50 | W.PN.GS2 ---
Today's Communication / Plan
-
Wean vent and pressors as lisa
TPN
Assessment / Plan
-
Patient is an 84 yo F p/w bowel obstruction likely related to colonic volvulus
POD#4 s/p ex lap, extended RIGHT hemicolectomy
Labile BP, tachycardia
Leukocytosis likely stress related possible steroids previously given, Hb stable, BMP with hyperglycemia from TPN
Postoperative issues with the following:
Acute pulmonary failure likely related to significant chronic elevation of her LEFT hemidiaphragm with compression of the LEFT lung, combined with atelectasis and acute surgical issues. Tenuous situation, reintubated. Care per ICU
Multifactorial shock, not levo monotherapy, much of her lability at this time is likely due to vasoplegic shock related to narcotics
Acute blood loss anemia related to operative blood loss, hemodilution, and antiplatelet therapy. Bleeding from anastomosis, little concern for severe active bleeding. Would hold on DVT ppx and Plavix given drift until stable.
Signs of return of bowel function. Continue with TPN
-- Wean pressor and vent as lisa
-- NPO, TPN for today
-- NGT to suction
-- Schedule IV Tylenol
-- Pulm and critical care per ICU
-- Abx: Zosyn, OK to stop from surgical perspective
-- GI: PPI
-- DVT: SQH (hold given GI bleeding)
-- Continue to hold Plavix
-- PT/OT
Subjective Data
-
Date of Service: July 23, 2024
NAEON, remains vented and sedated and on pressors
Objective Data
-
Intake and Output
07/22/24 07/23/24 07/24/24
06:59 06:59 06:59
Intake Total 2796.0 / 2842.6 1563.3 / 1646.1 357.5 / 357.5
Output Total 1045 / 1170 3065 / 3165 600 / 600
Balance 1751.0 / 1672.6 -1501.7 / -1518.9 -242.5 / -242.5
Intake:
IV fluids (Total) 2316.0 / 2362.6 1135.8 / 1188.6 207.5 / 207.5
D5w 1,000 ml @ 75 mls/hr IV . 875 / 875
[id number] [facility] Rx#:[id number]
KCl 268 / 268
Lr 1,000 ml @ 75 mls/hr IV . 500 / 500
[id number] HUBER Rx#:[id number]
Mag 100 / 100
diprivan 86.4 / 89.2 95.1 / 97.9 11.2 / 11.2
fentanyl 45.0 / 47.5 80.1 / 85.1 20 / 20
levophed 441.6 / 482.9 960.6 / 1005.6 176.3 / 176.3
IV piggybacks 300 / 300 67.5 / 67.5
TPN/PPN 360 / 390 120 / 120
Amount instilled into GI Tube ( 180 / 180 30 / 30
Total)
[place] Sump 180 / 180 30 / 30
Output:
Gastrointestinal tube output ( 100 / 100 50 / 50
Total)
[place] Sump 100 / 100 50 / 50
Urine, [place] 945 / 1070 3015 / 3115 600 / 600
Other:
Number of unmeasured liquid
stools
Rectum 2
Vital Signs
Temp Pulse Resp BP Pulse Ox
98.9 F 96 21 128/81 98
07/23/24 11:56 07/23/24 11:29 07/23/24 11:29 07/23/24 11:00 07/23/24 11:37
Lab Results
07/23/24 02:40
07/23/24 02:40
Calcium 8.2 mg/dl (8.4-10.2) L 07/23/24 02:40
Phosphorus 2.8 mg/dl (2.5-4.5) 07/23/24 02:40
Magnesium 1.8 mg/dl (1.6-2.3) 07/23/24 02:40
Total Bilirubin 0.5 mg/dl (0.2-1.3) 07/21/24 07:40
AST 21 U/L (14-36) 07/21/24 07:40
ALT 16 U/L (0-35) 07/21/24 07:40
Alkaline Phosphatase 41 U/L (38-126) 07/21/24 07:40
Total Protein 4.8 g/dl (6.3-8.2) L 07/21/24 07:40
Albumin 3.1 g/dl (3.5-5.0) L 07/21/24 07:40
Physical Exam
-
Gen: NAD
Abd: aquacel OK, belly soft, minimal ttp
--- NOTE | 2024-07-23 13:00 | PTCARENOTE ---
Overall assessment is unchanged. Remains wakeful and calm. Nodding appropriately. Admits to throat feeling sore- will give Ofermiv as per pts daughter-it helped yesterday. Back on AC settings since 1130 when pt was starting to have underlying
periods of apnea on the vent. ABG sent very shortly after placing back on AC settings. Dr. Kwon aware. Minimal secretions via ETT. ETT at the 21 cm on the R side. VS as documented. A line waveform continues to flucuate and often dampen despite
repositioning. When waveform is good remains within 10 -15 mm/hg of cuff Bp. Dr. Kwon aware and will keep A line in for bloodwork and monitoring but mostly use cuff to titrate the Levophed. Currently Levophed at 8 mcg as MAP's have been >65.
Remains off of Propophol and just on Fentanyl at 50 mcg and other that throat hurting nods that she is comfortable. Continues with good urine output. Repositioned. Daughter remains at the bedside.
[2024-07-23] MEDS: OFIRMEV 67.5 MG IV (14:21)
--- NOTE | 2024-07-23 14:30 | PTCARENOTE ---
Ofermiv 675 mg IV given for comfort- sore throat. No other changes.
[2024-07-23] MEDS: SUBLIMAZE 50 MCG IV ×2 (16:27→17:09)
--- NOTE | 2024-07-23 16:35 | PTCARENOTE ---
Pt was restful then after turning started to get anxious and tachypnic, feeling like she couldn't breathe although sats are 98%. RR 36-40 -Medicated with Fentanyl 50 mcg IV. Denies pain otherwise. BS are coarse. VS as documented. Levophed remains at
8 mcg. Fentanyl at 50mcg. Propophol is currently off but will restart if needed. NG with pale greenish secretions. Assessment otherwise is unchanged.
[2024-07-23] MEDS: DIPRIVAN 100 IV (17:10)
--- NOTE | 2024-07-23 17:20 | PTCARENOTE ---
Pt still looks anxious despite sats and TV on vent being ok- RR 33-38 and tachypnic. Fentanyl 50 mcg again given at 1710 and gtt increased to 75 mcg and Diprivan gtt restarted at 10 mcg via R arm TL PICC. Repositioned.
[2024-07-23 17:37] LABS: Glucose - Point of Care 164 mg/dl (70-99)
--- NOTE | 2024-07-23 18:10 | PTCARENOTE ---
Much less anxious and less tachypnic on the Diprivan at 10 mcg. and increased Fentanyl- currently at 75 mcg. Nods head that she is more comfortable. No changes in assessment otherwise. Repositioned. Daughter at the bedside.
--- NOTE | 2024-07-23 20:00 | PTCARENOTE ---
development trainer, pt intub/sedated, opens eyes spontaneously, follows some simple commands. afebrile. SR HR 80s. L rad [place] positional at times, leveled/zeroed. R TL PICC w/Fent, Prop, Levo, TPN infusing per work list. Sat 100% on MV Fi02 40%.
percussion on sport bed as ordered. L SS to LIWS, flushed. [place] draining adequate amt yellow urine. turned/repositioned. mouth care. dtr at bedside. POC discussed. care ongoing.
[2024-07-23] MEDS: Parenteral Nutrition, Central 730 IV (21:09)
[2024-07-24] VITALS (33 sets, daily range): BP systolic 0–129; BP diastolic 0–85; BMI 24.1
--- NOTE | 2024-07-24 00:15 | PTCARENOTE ---
no changes in pt assessment. mouth care, CHG cloths, loaiza care, turned/repositioned.
[2024-07-24 00:30] LABS: Glucose - Point of Care 138 mg/dl (70-99)
[2024-07-24] MEDS: NOVOLOG FLEXPEN-MODERATE RESISTANCE SC (00:34)
[2024-07-24] MEDS: LEVOPHED 250 IV ×2 (03:11→06:15)
[2024-07-24 03:13] LABS: HCO3 32.7 mmol/L (21-28); O2 Saturation % 99.9 % (94-98); PCO2 46 mmHg (32-35); PO2 146 mmHg (83-108); pH 7.46 (7.35-7.45)
[2024-07-24] MEDS: DIPRIVAN 100 IV (03:13)
--- NOTE | 2024-07-24 04:00 | PTCARENOTE ---
pt's BP labile at times- [id number], levo gtt titrated as needed, no further changes.
[2024-07-24 04:09] LABS: Blood Urea Nitrogen 15 mg/dl (7-17); Carbon Dioxide 28 mmol/L (22-30); Chloride 107 mmol/L (98-107); Estimated Creatinine Clearance 48 ml/min; Glucose 157 mg/dl (70-99); Magnesium 1.8 mg/dl (1.6-2.3); Phosphorus 3.7 mg/dl (2.5-4.5); Potassium 4.8 mmol/L (3.5-5.1); Sodium 137 mmol/L (135-145); Triglycerides 116 mg/dl (10-149); eGFR > 60.00
[2024-07-24] MEDS: NOVOLOG FLEXPEN-MODERATE RESISTANCE 1 UNITS SC (05:59)
[2024-07-24 06:09] LABS: Glucose - Point of Care 188 mg/dl (70-99)
[2024-07-24] MEDS: DUONEB 3 ML INH (07:48)
[2024-07-24] MEDS: DESENEX/MITRAZOL/ZEASORB 1 APPLIC TOPICAL (07:56)
[2024-07-24] MEDS: KEPPRA 500 MG IV (07:57)
[2024-07-24] MEDS: NSS (PRESERVATIVE FREE) 10 ML IV (07:57)
[2024-07-24] MEDS: FLOVENT 220 MCG INHALER 4 PUFF INH (07:57)
[2024-07-24] MEDS: PROTONIX IV 40 MG IV (07:58)
[2024-07-24] MEDS: FLUSH (NSS) 2 FLUSH IV ×2 (07:58→11:37)
--- NOTE | 2024-07-24 08:50 | PTCARENOTE ---
Rec'd pt at 0730 resting in bed. Rec' d pt sedated on Diprivan at 10 mcg and Fentanyl at 75 mcg. Pt opens eyes to verbal stimuli and will look at stimuli but not as much interaction as yesterday. Gives a very sl nod but did not attempt to grasp
hands or move feet. Very lethargic this am. RASS is about a -2. and CPOT is a 0. Tends to close eyes when not stimulated. Diprivan weaned to 5 mcg at 0800 to see it pt is any more wakeful. Skin is pale pink wm and dry. Feet are sl cool. L ear with
stage 1 reddened areas underneath a foam dressing as pt tends to constantly have her head to the L despite frequent repositioning. Pt with severe scoliosis. Respirs are intact on the vent. AC 14/TV 350/peep 5. Fio2 40%. Sats are 98%. Will add
occasional rate but no additional volume. Does tend to get sl tachypnic when she is more wakeful into the mid 20's then settles back to 14-15 when falls back to sleep. #7.5 ETT retaped at the 21 cm dante R side of the mouth. BS are decreased and
coarse at the bases. Suctioned for scant whitish secretions. Monitor SR. L radial a line is intact-site wnl- does tend to get sl positional but when waveform is good is congurent with cuff bP. Zeroed and recalibrated. + pulses. +2 generalized
anasarca. Pt currently on Levophed at 18 mcg. ABd is soft is soft with hypoactive BS. L nare [place] nG 55 cm dante draining greenish/clear drainage. Irrigated without diff. [place] intact for yellow urine. TPN infusing at 30 ml/hr. All IV's infusing via
R arm DL PICC site wnl. Turned and repositioned. Skin and mouth care given. Daughter in and plan of care reviewed. Pt remains on SPORT bed on rotation. Percussion done. Call finch in reach.
--- NOTE | 2024-07-24 08:55 | W.PN.INTV ---
Today's Communication / Plan
Recommendations
- Transition to comfort care only
- Palliative extubation with fentanyl support
Assessment
-
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 Workup in the emergency room was concerning for
internal hernia with suspected transverse colon volvulus and gastric distention. Patient received a dose of morphine 4 mg which was followed by a period of unresponsiveness which improved with Narcan. Patient was subsequently brought to the ICU
for closer monitoring. Quick Mixer Operator consultation was requested for further input. Patient has been evaluated by GI and surgery service. An NG tube was placed and patient has been placed on low intermittent suction.
07/24 overview: Patient currently intubated mechanically ventilated. Levophed infusing at 18 now. Current infusions, fentanyl, propofol as well as TPN. No bowel movement overnight, NG tube in place, small volume bilious output.
7.4 6/46/146 on volume assist-control, 350/14/40%/5.
Overnight increasing Levophed requirement.
Goals of care: 07/24. I met with patient's daughter at bedside as well as son-in-law. We went over patient's current clinical condition as well as worsening shock and rising Levophed requirement. Patient not stable for SBT. Patient's daughter
opted to proceed with comfort focused care. Patient was awake and when asked if she would like to be transition, she nodded yes. All questions answered.
- Transition to comfort care only, of extubation
- Fentanyl to keep patient comfortable
Underlying diagnoses:
#1. Abdominal pain with Colon volvulus, with gastric distention
- S/p laparotomy, right hemicolectomy and reanastomosis on 07/19
#2. Post extubation acute hypercapnic respiratory failure, re-intubated 07/21
#3. Hypotension, worsening shock
#4. History of seizure disorder
#5. History of Asthma and restrictive lung disease
#6. H/O GERD
#7. Cachexia, failure to thrive
Other medical diagnoses:
- TIA
- h/o Breast and Thyroid cancer
Goals of care: 07/21 I met with patient's daughter at bedside. Patient is cachectic appearing, is weak. She had to be reintubated today due to persistent respiratory failure and inability to wean off BiPAP 24 hours after extubation. We discussed
various options including plan to wean again in 24 hours and see if patient can be successfully extubated considering her underlying severe restrictive lung disease, low baseline FEV1 and cachexia, there is a high likelihood that patient may need
prolonged ventilatory support. We also discussed prolonged ventilation need, tracheostomy etc. Patient and patient's daughter were fairly clear that they would not want patient to be on long-term ventilatory support and will not want to pursue
tracheostomy. Patient also opted that she would want to be reintubated second time but if she fails she would not want to be reintubated at her time and would want to pursue more comfort focused care. Also CODE STATUS was discussed and changed to
DNR.
Critical Care time 42 mins -- The patient is admitted for acute critical illness for the treatment of vital organ failure and/or prevention of further life-threatening conditions. Total care includes time spent in review of history, physical exam,
medications, hemodynamic/ventilator parameters, laboratory data, imaging and discussion with house staff, pharmacy, respiratory therapy, oil dipper, and nursing.
Data:
CXR 07/2024: Chronic left hemidiaphragm elevation. Gastric distention. Bilateral atelectasis
CT Head -07/2024: No acute intracranial abnormality noted considering the enhanced technique.
Moderate periventricular small vessel ischemic disease.
Moderate acute left sphenoid sinusitis.
CT Abd/pelvis 07/2024: New findings suggesting a possible internal hernia. Clinical correlation recommended.
Edematous mesentery. Mild free fluid in the abdomen and pelvis likely reactive.
Distended stomach. New.
Severe diverticulosis. No diverticulitis.
Severe elevation of the left hemidiaphragm
ECHO 10/2019: Suboptimal parasternal views likely due to scoliosis and left mastectomy.
Small left ventricular chamber size. Normal left ventricular systolic function.
Left ventricular ejection fraction is 50-55% by visual assessment.
Mild left ventricular hypertrophy.
Stage I diastolic dysfunction suggestive of abnormal relaxation.
Mild mitral regurgitation.
Mild aortic regurgitation.
Mild tricuspid regurgitation.
Subjective Dataa
Subjective Data
Date of Service:
Date of Service: July 24, 2024
Subjective:
Patient currently mechanically ventilated, intubated in shock.
Review of Systems
General: Other (Intubated)
Objective Data
Data Reviewed
Vital Signs / I&O / Oxygen:
Vital Signs
Temp Pulse Resp BP Pulse Ox
98.6 F 87 14 95/64 98
07/24/24 07:56 07/24/24 07:51 07/24/24 07:51 07/24/24 06:00 07/24/24 08:00
Intake and Output
07/23/24 07/24/24 07/25/24
06:59 06:59 06:59
Intake Total 1563.3 / 1646.1 2382.8 / 2490.6 214.2 / 214.2
Output Total 3065 / 3165 3165 / 3165 225 / 225
Balance -1501.7 / -1518.9 -782.2 / -674.4 -10.8 / -10.8
SaO2 [CPAP/PSV] 98
SaO2 [A/C] 98
SaO2 99
Nasal Cannula flow liters per 50
minute
Physical Exam
General: Comfortable
HEENT: Normocephalic and Other (Conjunctival pallor)
Cardiovascular: S1-S2
Respiratory: Clear and Other (Decreased air entry in the left lower hemithorax)
GI: Soft and Other (NG tube in place, no bowel sounds.)
Neurology: Other (Awake. When asked about focusing care to keep her comfortable only, patient nodded yes)
Skin: Warm
Labs/Micro/Reports
Lab Data
07/23/24 02:40
07/24/24 03:08
Laboratory Results
07/23/24 07/24/24
11:43 03:08
pH 7.57 H 7.46 H
pCO2 38 H 46 H
pO2 151 H 146 H
HCO3 34.8 H 32.7 H
O2 Delivery Level Cpap 5/ps 10 40%
[2024-07-24] MEDS: SUBLIMAZE 100 IV (08:59)
--- NOTE | 2024-07-24 09:15 | PTCARENOTE ---
Pts daughter in and tearful- expressing that she knows its time for comfort for her mother. Verbalizing saddness but realization that she is just getting worse. Dr. Kwon in and spoke with family. Will transition to comfort with eventual extubation
per daughter and pts previous wishes. Levophed decreased to 16 mcg and will continue to wean to off. Pts eyes are open and did give a slight nod otherwise is restful.
--- NOTE | 2024-07-24 09:18 | W.PN.HOSP.TC ---
Today's Communication/Plan
-
terminal extubation with comfort measures
Assessment / Plan
Assessment / Plan
pt is an 84 year old female
Abdominal pain due to internal hernia with cecal volvulus and twisting of internal vessels--apprec surgery--s/p Extended RIGHT hemicolectomy with primary stapled [id number] anastomosis on 07/19/24 -Cecum within the left chest causing obstruction and
volvulus of the transverse colon, No ischemia or perforation--post op care, pain control--abx stopped per surgery--PPI IV BID--TPN--unable to get patient off vent, transitioning to comfort care with terminal extubation
VDRF--intubated post op, extubated, re-intubated 07/21--apprec refrigeration manager help--patient told refrigeration manager that she would not want to be reintubated again if she failed extubation this time, therefore, will proceed with comfort measures and terminal
extubation
anemia--was told pt has maroon stool--surgery aware--likely multifactorial from dilution (IVF), possible acute blood loss from GI source/bleed--off steroids on IV PPI BID--HGB 9.7--holding SC heparin
hypotension--post op--does not appear septic by criteria--remains on levophed-- IVF support--TPN
Acute toxic metabolic encephalopathy from acute hypoxic respiratory failure (on O2 but does not wear it at home) due to UNINTENTIONAL opiate overdose (4mg IV morphine given by ED) in a pt with COPD--received narcan with improvement--now intubated
postop
Urinary retention- straight cath as needed--loaiza post op--d/c as per surgery, refrigeration manager
Seizure disorder--cont Keppra IV
HLD--hold oral statin
Hx CVA
H/o breast cancer s/p mastectomy
DVT proph-- subq heparin
Code status--limited -- DNR--intubated post procedure--plans for terminal extubation today
Total Critical Care Time 32 minutes. I was immediately available to the patient and staff. I personally examined, reviewed labs, diagnostic images/reports, interpretations, treatment plans, discussed patient care with other providers and family
or caregivers (if patient is unable to make decisions), entered orders as appropriate and documented the medical record.
Anticipated Discharge: Today
Subjective/Interval History
-
Date of Service: July 24, 2024
daughter arrived at bedside and spoke with Dr. Kwon--transitioning to comfort measures with terminal extubation
Objective Data
-
Labs:
Laboratory Results
07/24/24
03:08
HCO3 32.7 H
Sodium 137
Potassium 4.8
Chloride 107
Carbon Dioxide 28
BUN 15
Creatinine 0.4 L
Glucose 157 H
Calcium 8.0 L
Vital Signs:
max temp for 24 hours
07/23/24
19:45
Temp 98.4 F
Vital Signs
Temp Pulse Resp BP Pulse Ox
98.6 F 87 14 95/64 98
07/24/24 07:56 07/24/24 07:51 07/24/24 07:51 07/24/24 06:00 07/24/24 08:00
I&O
07/23/24 07/24/24 07/25/24
06:59 06:59 06:59
Intake Total 1563.3 / 1646.1 2382.8 / 2490.6 214.2 / 214.2
Output Total 3065 / 3165 3165 / 3165 225 / 225
Balance -1501.7 / -1518.9 -782.2 / -674.4 -10.8 / -10.8
Review of Systems
-
Unable to obtain full review of systems at this time due to: Patient Intubation
Physical Exam
-
General: No Apparent Distress, Intubated and Appears Chronically Ill (frail female)
HEENT: Normocephalic and Atraumatic
Respiratory: Clear to Auscultation; Negative Wheezes, Rales or Rhonchi
Cardiac: Regular Rhythm and S1/S2; Negative Murmur
GI: Soft, Nontender, Nondistended and Normal Bowel Sounds
Genito-urinary: Loaiza
Musculoskeletal: No Clubbing, No Cyanosis and No Edema
Neuro: Awake
Psych: Calm
--- NOTE | 2024-07-24 10:00 | PTCARENOTE ---
Weaning Levophed to off with plan to extubate. Daughter and son in law at the bedside. Support and explanations given. Pt with eyes mostly shut. Support given. [place] in earlier.
--- NOTE | 2024-07-24 10:04 | W.PN.SURGUPD ---
Surgical Update
Surgical Update
Patient requiring increased pressors overnight. Continues with VDRF.
Daughter at bedside and tearful and considering SITE PLANNER. D/W primary hospitalist.
Surgery team available to answer any additional questions/concerns family may have.
--- NOTE | 2024-07-24 10:41 | CHAP ---
Visit requested by ICU staff. Daughter Lauryn and her were present. Lauryn was tearful, but saying her mother is 'ready.' She welcomed prayer. Emotional and spiritual support provided, along with assurance of our on-going availability.
[2024-07-24] MEDS: ATIVAN 1 MG IV ×2 (10:42→12:58)
[2024-07-24] MEDS: NSS (PRESERVATIVE FREE) 0.5 ML IV ×2 (10:42→12:58)
--- NOTE | 2024-07-24 10:45 | PTCARENOTE ---
Levophed off at 1030. Diprivan turned off at 1015. Currently Ativan 1 mg IV given in anticipation of extubation. Daughter at the bedside Tearful. Pt with eyes shut
--- NOTE | 2024-07-24 11:00 | RESPNOTE ---
patient extubated for comfort measures per MD order. family at bedside.
--- NOTE | 2024-07-24 11:05 | PTCARENOTE ---
Pt extubated at 1100. Support given. Sats currently 58% and respirs very shallow
[2024-07-24] MEDS: SUBLIMAZE 50 MCG IV ×4 (11:34→16:36)
--- NOTE | 2024-07-24 11:45 | PTCARENOTE ---
Pt with some tugging with her breathing. Fentanyl 50 mcg IV given. Fentanyl gtt at 75 mcg
--- NOTE | 2024-07-24 12:35 | PTCARENOTE ---
Pt still with some clavicular rise/tugging otherwise not responsive. Remedicated with Fentanyl 50 mcg IV per protocol. TPN stopped at 1200 per MD order. NG dc'd per MD order and A Line dc'd. Pressure held over the site. No hematoma. On RA with sats
of 45%. BP in the 50-70's syst. Daughter at the bedside and support given. Repositioned.
--- NOTE | 2024-07-24 15:00 | PTCARENOTE ---
Medicated at 1300 with Ativan 1 mg IV and currently with Fentanyl 50 mcg IV mostly for some clavicular tugging. Pt overall is unresponsive but did put mouth around the [place] when oral care given. Not moving any extremities. Sats mostly 58% and
BP's 50/30's. Turned and repositioned. Family at the bedside-support given
[2024-07-24] MEDS: MORPHINE SULFATE 4 MG IV (16:02)
--- NOTE | 2024-07-24 16:45 | PTCARENOTE ---
Pt with agonal intermixed with Desmond Moore respirs. Some clavicular rise/tugging. Daughter concerned. Medicated with Morphine 4 mg IV at 1602 and Fentanyl 50 mcg at 1635 with increase in Fentanyl gtt to 125 mcg. No other changes. Pt due to be
moved to [place]- family made aware. Pt full DNR on comfort.
--- NOTE | 2024-07-24 17:13 | PTCARENOTE ---
Pts respirs became more agonal and HR slowed over past 10 minutes. Currently pt with no respirs , no BP and Asystole on the monitor. Will notify
--- NOTE | 2024-07-24 17:30 | PTCARENOTE ---
Dr. Douglas in to pronounce pt
--- NOTE | 2024-07-24 17:33 | W.PN.DEATH ---
Pronouncement of
-
Called to see patient to pronounce.
No spontaneous heart tones or respirations noted.
Patient not responsive to verbal stimuli.
Patient is pronounced .
Time of : 17:13
Date of : 07/24/24
Cause of : Acute hypoxic respiratory failure
Family Notified: Yes
--- NOTE | 2024-07-24 17:48 | PTCARENOTE ---
Family supported. Belongings from room taken by family. Will call GOL
--- NOTE | 2024-07-25 07:26 | W.DCSUMMARY ---
Addendum entered and electronically signed by Juani Salvador MD 07/27/24 11:50:
Read, reviewed, and agree. See same day progress note for additional details. Time spent coordinating care, DC planning, review of DC plan of care with resident, transition of care, review of records in EMR, med rec, consults, notes, d/w
consultants, nursing, family, and CM = 31 minutes
Original Note:
Discharge Summary
Discharge Data
Date of Admission: 07/18/24
Date of Discharge: 07/24/24
-
Pending Results: No
Hospital Course
Discharging Physician : Dr. Salvador
Disposition :
Primary care physician : Darrell Freeman
Principal Discharge diagnosis : Cecal volvulus, ventilator dependent respiratory failure, anemia, hypotension, acute TME, urinary retention
Chronic Discharge diagnosis : Seizure disorder, HLD, hx CVA, hx breast cancer s/p mastectomy
Hospital Course : 84yo F [facility] COPD, seizures, CVA, PUD, diverticulitis, hx hernia repairs who presented to [facility] ED 07/18 for abdominal pain, N/V since the day before. Received 4mg morphine in ED, found to be unresponsive, improved after narcan. CT
abd/pelvis c/w internal hernia vs possible volvulized transverse colon. Attempted laxatives w/o success. Underwent laparotomy w right hemicolectomy with primary stapled ussw-ug-guze anastomosis. Pt unable to be extubated after surgery, developing
ventilator dependent respiratory failure. Pt extubated 07/20. Became tachycardic, placed on BiPAP. Pt had to be reintubated 07/21. Pt stated she did not wish to be on a ventilator for a prolonged amount of time. Pt transitioned to comfort care w
palliative extubation. Pt .
Important imaging findings :
Abd/pelvis CT 07/18:
New findings suggesting a possible internal hernia. Clinical correlation recommended.
Edematous mesentery. Mild free fluid in the abdomen and pelvis likely reactive.
Distended stomach. New.
Severe diverticulosis. No diverticulitis.
Severe elevation of the left hemidiaphragm. New.
Head CT 07/18:
No acute intracranial abnormality noted considering the enhanced technique.
Moderate periventricular small vessel ischemic disease.
Moderate acute left sphenoid sinusitis.
CXR 07/18:
Chronic severe left hemidiaphragm elevation, progressed from prior.
Mild right midlung atelectasis and/or pneumonia.
CXR 07/18:
NG tube in stomach.
Probable worsening left lung atelectasis.
Abdomen XR 07/19:
Stable bowel gas pattern.
Mild residual oral contrast in bowel.
CXR 07/19:
Endotracheal tube has been inserted with tip 2.9 cm above the honorio.
Nasogastric tube is present with tip projecting over the region of the left lower chest/upper abdomen, most likely within the stomach.
CXR 07/19:
PICC line with tip likely in the distal SVC, overall evaluation limited due to marked elevation of left hemidiaphragm with shift of heart mediastinum to the right.
Nasogastric tube extends into the stomach which is located markedly elevated left hemidiaphragm.
CXR 07/20:
Endotracheal tube is present with its tip 5.5 cm above the honorio.
Loops of bowel standing into the expected region of the left lower hemithorax, which is likely due to an elevated left hemidiaphragm.
Intraperitoneal air is seen underneath the elevated left hemidiaphragm, compatible with recent surgery.
Focal atelectasis left perihilar region adjacent to the presumed elevated left hemidiaphragm.
Patchy parenchymal opacity within the right lung, with main differential considerations of pneumonia and/or pulmonary edema. Probable small right pleural effusion.
CXR 07/21:
Endotracheal tube tip extends into the right mainstem bronchus. This should be repositioned proximally approximately 4 cm.
Opacity at the right lung base is essentially stable, likely representing combination of pleural fluid and mild parenchymal opacity which could represent pneumonia or atelectasis.
Stable asymmetric elevation of left diaphragm versus hernia.
Stable nasogastric tube and right PICC line catheter.
CXR 07/21:
The endotracheal tube has been repositioned. Currently, the distal tip is approximately 4 cm above the honorio.
No other significant interval change.
CXR 07/23:
Lines tubes as described above.
Stable severe elevation of the left hemidiaphragm.
Small right pleural effusion. Stable
Procedure findings :
Laparotomy 07/19:
1. Cecum within the left chest causing obstruction and volvulus of the transverse colon.
2. No ischemia or perforation.
3. Extended right hemicolectomy with primary stapled [id number] anastomosis with KEESHA-100 blue load stapler.
4. Anatomy confirmed, mesenteric defect closed.
Discharge Plan
-
Patient Disposition:
Date/Time
Date/Time: 07/24/24 17:13
Discharge Date and Time
Discharge Date/Time: 07/24/24 17:13
Print Language: BULGARIAN
--- NOTE | 2024-07-26 08:33 | PN.CDI ---
CDI
- -
CDI:
Physician Documentation Request
Admit Date: 07/18/24 18:06
Dear Doctor Jerardo,
Please review the following and provide your response in the progress notes.
Clinical Indicators:
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
Please indicate in your progress notes if you are in agreement that the above diagnosis is valid for this patient:
____ - Appendix with well-differentiated neuroendocrine tumor, grade 1 is a valid diagnosis (Please include it in your progress notes)
____ - Appendix with well-differentiated neuroendocrine tumor, grade 1 is not a valid diagnosis for this patient
____ - Appendix with well-differentiated neuroendocrine tumor, grade 1 is not yet confirmed but remains a suspected condition
____ - Other
____ - Unable to determine
Use of terms such as suspected, likely, concern for, or probable are acceptable for a diagnosis that is being evaluated, monitored or treated as if it exists and can be coded in the inpatient setting, when documented at the time of discharge.
Thank you,
Gabby Barnrad
[employer] Specialist
Please use your independent medical judgment in providing your response.
== END 2024-07-24 17:13 | disposition expired | DRG 329 ==
LOC: ICU 18:06
PROVIDERS: Emergency Medicine; Nurse Practitioner Family; Nurse Practitioner Primary Care; Registered Nurse; Surgery; ADMITTING PHYSICIAN Internal Medicine; ATTENDING PHYSICIAN Internal Medicine; CONSULT PHYSICIAN Internal Medicine; CONSULT PHYSICIAN Internal Medicine Gastroenterology; CONSULT PHYSICIAN Surgery; EMERGENCY PHYSICIAN Student in an Organized Health Care Education/Training Program; FAMILY PHYSICIAN Family Medicine
PROC: 03HY32Z Insertion of Monitoring Device into Upper Artery, Percutaneous Approach (ICD-10-PCS; 2024-07-19)
PROC: 5A1935Z Respiratory Ventilation, Less than 24 Consecutive Hours (ICD-10-PCS; 2024-07-19)
PROC: 0DSH0ZZ Reposition Cecum, Open Approach (ICD-10-PCS; 2024-07-19)
PROC: 0DSL0ZZ Reposition Transverse Colon, Open Approach (ICD-10-PCS; 2024-07-19)
PROC: 0DTF0ZZ Resection of Right Large Intestine, Open Approach (ICD-10-PCS; 2024-07-19)
PROC: 0BH17EZ Insertion of Endotracheal Airway into Trachea, Via Natural or Artificial Opening (ICD-10-PCS; 2024-07-19)
PROC: 02HV33Z Insertion of Infusion Device into Superior Vena Cava, Percutaneous Approach (ICD-10-PCS; 2024-07-19)
PROC: 5A09357 Assistance with Respiratory Ventilation, Less than 24 Consecutive Hours, Continuous Positive Airway Pressure (ICD-10-PCS; 2024-07-20)
PROC: 5A1945Z Respiratory Ventilation, 24-96 Consecutive Hours (ICD-10-PCS; 2024-07-21)
PROC: 3E0436Z Introduction of Nutritional Substance into Central Vein, Percutaneous Approach (ICD-10-PCS; 2024-07-21)
DX: K46.0 Unspecified abdominal hernia with obstruction, without gangrene (principal); E43 Unspecified severe protein-calorie malnutrition; K56.2 Volvulus; G92.8 Other toxic encephalopathy; J96.01 Acute respiratory failure with hypoxia; T81.19XA Other postprocedural shock, initial encounter; N17.9 Acute kidney failure, unspecified; K92.1 Melena; J98.11 Atelectasis; D62 Acute posthemorrhagic anemia; K91.89 Other postprocedural complications and disorders of digestive system; R64 Cachexia; C7A.8 Other malignant neuroendocrine tumors; D72.829 Elevated white blood cell count, unspecified; T38.0X5A Adverse effect of glucocorticoids and synthetic analogues, initial encounter; R73.9 Hyperglycemia, unspecified; Y83.8 Other surgical procedures as the cause of abnormal reaction of the patient, or of later complication, without mention of misadventure at the time of the procedure; T40.2X1A Poisoning by other opioids, accidental (unintentional), initial encounter; Z66 Do not resuscitate; Z51.5 Encounter for palliative care; R33.8 Other retention of urine; J44.9 Chronic obstructive pulmonary disease, unspecified; E86.0 Dehydration; E86.1 Hypovolemia; K57.30 Diverticulosis of large intestine without perforation or abscess without bleeding; K59.09 Other constipation; J98.4 Other disorders of lung; G40.909 Epilepsy, unspecified, not intractable, without status epilepticus; E78.00 Pure hypercholesterolemia, unspecified; M41.9 Scoliosis, unspecified; K21.9 Gastro-esophageal reflux disease without esophagitis; J98.6 Disorders of diaphragm; K31.89 Other diseases of stomach and duodenum; Z68.24 Body mass index [BMI] 24.0-24.9, adult; Z85.850 Personal history of malignant neoplasm of thyroid; Z85.3 Personal history of malignant neoplasm of breast; Z86.73 Personal history of transient ischemic attack (TIA), and cerebral infarction without residual deficits
CPT/HCPCS: 88307; 70450; 71045; 74018; 74177; 80048; 80053; 82805; 82962; 83036; 83605; 83690; 83735; 84100; 84478; 85014; 85018; 85025; 85027; 85610; 85730; 86850; 86900; 86901; 88341; 88342; 93005; 94002; 94003; 94640; 94660; 96361; 96374; 96375; 99285; C1776; P9047; Q9967